=== PATIENT | male | born 1965 | race Caucasian/White ===

== ENCOUNTER → 2022-01-11 10:39 | Outpatient (BNVA) | payer MEDICARE, SELFPAY | PROVIDERS: PCP Family Medicine; Visit Provider Family Medicine | DX: M54.50 Low back pain, unspecified (principal); G89.29 Other chronic pain; E11.40 Type 2 diabetes mellitus with diabetic neuropathy, unspecified; I10 Essential (primary) hypertension; E78.00 Pure hypercholesterolemia, unspecified; F41.9 Anxiety disorder, unspecified; E11.9 Type 2 diabetes mellitus without complications; F11.90 Opioid use, unspecified, uncomplicated | CPT/HCPCS: 80053; 80061; 83036; 85025 ==

== ENCOUNTER 2022-03-16 06:00 | Outpatient (RCR) | payer MEDICARE, SELFPAY | END 2022-04-12 23:59 | disposition home or self-care (01) | LOC: SPT 06:00 | PROVIDERS: PCP Family Medicine; Visit Provider Family Medicine | DX: M54.50 Low back pain, unspecified (principal); G89.29 Other chronic pain | CPT/HCPCS: 97110; 97162 ==

== ENCOUNTER 2022-04-13 06:00 | Outpatient (RCR) | payer MEDICARE, SELFPAY | END 2022-05-10 23:59 | disposition home or self-care (01) | LOC: SPT 06:00 | PROVIDERS: PCP Family Medicine; Visit Provider Family Medicine | DX: M54.50 Low back pain, unspecified (principal); G89.29 Other chronic pain | CPT/HCPCS: 97110 ==

== ENCOUNTER → 2022-04-22 10:22 | Outpatient (BNVA) | payer MEDICARE, SELFPAY | PROVIDERS: PCP Family Medicine; Visit Provider Family Medicine | DX: B35.1 Tinea unguium (principal); M54.50 Low back pain, unspecified; G89.29 Other chronic pain; E11.9 Type 2 diabetes mellitus without complications; I10 Essential (primary) hypertension; F41.9 Anxiety disorder, unspecified; F11.90 Opioid use, unspecified, uncomplicated | CPT/HCPCS: 80053; 83036 ==

== ENCOUNTER → 2022-05-02 11:13 | Outpatient (BNVA) | payer MEDICARE, SELFPAY | PROVIDERS: PCP Family Medicine; Referring Provider Family Medicine; Visit Provider Podiatrist Foot & Ankle Surgery | DX: M20.32 Hallux varus (acquired), left foot (principal); M20.31 Hallux varus (acquired), right foot; M20.41 Other hammer toe(s) (acquired), right foot; M20.42 Other hammer toe(s) (acquired), left foot; M21.6X9 Other acquired deformities of unspecified foot; E11.42 Type 2 diabetes mellitus with diabetic polyneuropathy; Z79.4 Long term (current) use of insulin | CPT/HCPCS: 11056; 11721; 99204 ==

== ENCOUNTER 2022-05-06 13:33 | Outpatient (CLI) | payer MEDICARE, SELFPAY ==
--- NOTE | 2022-05-06 13:54 | XR_ITS ---
WS: [id number] Exam: XR lumbar spine f/e only [id number] Date/Time of Exam: 05/06/2022 1:54 PM Reason For Exam: POST LAMINECTOMY SYNDROME There is posterior fusion of the spine at L4-5 with pedicle screws and posterior rods. A disc spacer is in place. The fusion is ossified and in satisfactory alignment. No flexion or extension instabilit y. Degenerative narrowing of the L3-4 disc. A neurostimulator is noted in the posterior soft tissues with the leads extending cephalad. XR/XR lumbar spine f/e only [id number] IMPRESSION: 1. Stable-appearing posterior L4-5 fusion. 2. No flexion or extension instability. Degenerative changes as above.
== END 2022-05-06 13:34 | disposition home or self-care (01) ==
PROVIDERS: PCP Family Medicine; Visit Provider Nurse Practitioner
DX: M96.1 Postlaminectomy syndrome, not elsewhere classified (principal)
CPT/HCPCS: 72120

== ENCOUNTER 2022-05-11 06:00 | Outpatient (RCR) | payer MEDICARE, SELFPAY | END 2022-06-01 12:34 | disposition home or self-care (01) | LOC: SPT 06:00 | PROVIDERS: PCP Family Medicine; Visit Provider Family Medicine | DX: M54.50 Low back pain, unspecified (principal); G89.29 Other chronic pain | CPT/HCPCS: 97110 ==

== ENCOUNTER → 2022-06-02 10:34 | Outpatient (BNVA) | payer OTHER, SELFPAY | PROVIDERS: PCP Family Medicine; Visit Provider Family Medicine | DX: R30.0 Dysuria (principal); Z12.5 Encounter for screening for malignant neoplasm of prostate; Z11.59 Encounter for screening for other viral diseases; H91.92 Unspecified hearing loss, left ear | CPT/HCPCS: 80074; 84153 ==

== ENCOUNTER 2023-03-08 08:06 | Outpatient (CLI) | payer MEDICARE, SELFPAY ==
--- NOTE | 2023-03-08 08:11 | CTR_ITS ---
PROCEDURE INFORMATION: Exam: CT Temporal Bones Without Contrast. Exam date and time: 03/08/2023 8:16 AM Age: 57 years old Clinical indication: Other: Tinnitus with hearing loss to left ear; Additional info: Mixed conductive sensorineural hearing loss TECHNIQUE: Imaging protocol: Computed tomography of the temporal bones without contrast. Radiation optimization: All CT scans at this facility use at least one of these dose optimization techniques: automated exposure control; mA and/or kV adjustment per patient size (includes targeted exams where dose is matched to clinical indication); or iterative reconstruction. REPORTING DATA: Count of CT and Cardiac NM exams in prior 12 months: This patient has received 0 known CTs and 0 known cardiac nuclear medicine studies in the 12 months prior to the current study. COMPARISON: No relevant prior studies available. RADIATION DOSE METRICS: Total DLP (mGy-cm): 290.95 FINDINGS: Right inner ear: Normal. Right ossicles and middle ear: Normal. The middle ear ossicles are intact. Right external auditory canal: Normal. Right facial nerve canal: Normal. Right jugular foramen: No jugular dehiscence. Right carotid canal: No aberrant carotid canal. Right mastoid air cells: Normal. No mastoid effusions. Left inner ear: Normal. Left ossicles and middle ear: Normal. The middle ear ossicles are intact. Left external auditory canal: Normal. Left facial nerve canal: Normal. Left jugular foramen: No jugular dehiscence. Left carotid canal: No aberrant carotid canal. Left mastoid air cells: Normal. No mastoid effusions. Soft tissues: Unremarkable. CT/CT temporal bone wo con* [id number] IMPRESSION: No acute findings.
== END 2023-03-08 08:07 | disposition home or self-care (01) ==
LOC: RAD 08:07
PROVIDERS: PCP Family Medicine; Visit Provider Otolaryngology
DX: H90.8 Mixed conductive and sensorineural hearing loss, unspecified (principal); H93.12 Tinnitus, left ear
CPT/HCPCS: 70480

== ENCOUNTER → 2023-05-08 11:21 | Outpatient (BNVA) | payer MEDICARE, SELFPAY | PROVIDERS: PCP Family Medicine; Visit Provider Family Medicine | DX: E11.9 Type 2 diabetes mellitus without complications (principal) | CPT/HCPCS: 80053; 83036 ==

== ENCOUNTER 2023-05-21 18:17 | Inpatient (IN) | payer MEDICARE, SELFPAY ==
[2023-05-21 18:29] VITALS: BP 171/95; PULSE 100; RESP 18; TEMP 37.2; O2SAT 95; BMI 36.5
--- NOTE | 2023-05-21 18:51 | XRR_ITS ---
PROCEDURE INFORMATION: Exam: XR Chest Exam date and time: 05/21/2023 6:58 PM Age: 57 years old Clinical indication: Chest pressure; Patient HX: Chest pain; SOB; HTN TECHNIQUE: Imaging protocol: Radiologic exam of the chest. Views: 1 view. COMPARISON: CT angio chest w abd pel w con 05/21/2023 6:23 PM FINDINGS: Tubes, catheters and devices: Spinal stimulator. Lungs: Bibasilar atelectasis versus infiltrate. Pleural spaces: Unremarkable. No pleural effusion. No pneumothorax. Heart/Mediastinum: Cardiomegaly. Bones/joints: Unremarkable. XR/XR chest 1V portable [id number] IMPRESSION: 1. Bibasilar atelectasis versus infiltrate. 2. Cardiomegaly. 3. Spinal stimulator.
--- NOTE | 2023-05-21 18:57 | CTR_ITS ---
PROCEDURE INFORMATION: Exam: CTA Chest With Contrast Exam date and time: 05/21/2023 6:23 PM Age: 57 years old Clinical indication: Abdominal pain; Shortness of breath; Chest pressure; Prior surgery; Surgery date: 6+ months; Surgery type: Esther fundoplication. Spinal stimulator. Lumbar fusion. Patient HX: C/O chest and epigastric pain with SOB and constipation. ; Additional info: Cp TECHNIQUE: Imaging protocol: Computed tomographic angiography of the chest with contrast. Exam focused on the arteries. 3D rendering (Not supervised by radiologist): MIP and/or 3D reconstructed images were created by the technologist. Radiation optimization: All CT scans at this facility use at least one of these dose optimization techniques: automated exposure control; mA and/or kV adjustment per patient size (includes targeted exams where dose is matched to clinical indication); or iterative reconstruction. Contrast material: OMNI 350; Contrast volume: 100 ml; Contrast route: INTRAVENOUS (IV); COMPARISON: No relevant prior studies available. RADIATION DOSE METRICS: Total DLP (mGy-cm): 1632.07 FINDINGS: Tubes, catheters and devices: Spinal stimulator. Pulmonary arteries: Normal. No pulmonary emboli. Aorta: Ascending thoracic aorta dilated to 3.6 cm. Lungs: Bilateral dependent atelectasis versus infiltrate. Pleural spaces: Unremarkable. No pneumothorax. No pleural effusion. Heart: Cardiomegaly. Coronary arteries: Coronary artery atherosclerotic calcifications. Lymph nodes: Unremarkable. No enlarged lymph nodes. Bones/joints: Unremarkable. No acute fracture. Soft tissues: Unremarkable. PROCEDURE INFORMATION: Exam: CT Abdomen And Pelvis With Contrast Exam date and time: 05/21/2023 6:23 PM Age: 57 years old Clinical indication: Abdominal pain; Shortness of breath; Chest pressure; Prior surgery; Surgery date: 6+ months; Surgery type: Esther fundoplication. Spinal stimulator. Lumbar fusion. Patient HX: C/O chest and epigastric pain with SOB and constipation. ; Additional info: Cp TECHNIQUE: Imaging protocol: Computed tomography of the abdomen and pelvis with contrast. Radiation optimization: All CT scans at this facility use at least one of these dose optimization techniques: automated exposure control; mA and/or kV adjustment per patient size (includes targeted exams where dose is matched to clinical indication); or iterative reconstruction. Contrast material: OMNI 350; Contrast volume: 100 ml; Contrast route: INTRAVENOUS (IV); COMPARISON: CR XR lumbar spine f/e only [id number] 05/06/2022 1:56 PM RADIATION DOSE METRICS: Total DLP (mGy-cm): 1632.07 FINDINGS: Tubes, catheters and devices: Spinal stimulator in the thoracic spine. Liver: Normal. No mass. Gallbladder and bile ducts: Cholelithiasis with possible gallbladder wall thickening, ultrasound could further characterize this. Pancreas: Normal. No ductal dilation. Spleen: Normal. No splenomegaly. Adrenal glands: Normal. No mass. Kidneys and ureters: Right kidney cyst, negative for follow up. Bilateral nonobstructing renal calyceal stones. Mild perinephric edema bilaterally likely reflecting renal sufficiency, please correlate for pyelonephritis. Right distal ureter 5.3 mm calculus suspected, best seen series 8, image 78, negative for hydronephrosis hydroureter. Stomach and bowel: Gastric surgical sutures. Appendix: No evidence of appendicitis. Intraperitoneal space: Unremarkable. No free air. No significant fluid collection. Vasculature: Unremarkable. No abdominal aortic aneurysm. Lymph nodes: Unremarkable. No enlarged lymph nodes. Urinary bladder: Unremarkable as visualized. Reproductive: Unremarkable as visualized. Bones/joints: Lumbar spine surgical hardware seen in place. Soft tissues: Unremarkable. CT/CT angio chest w abd pel w con IMPRESSION: 1. Negative for pulmonary embolus. 2. Ascending thoracic aorta dilated to 3.6 cm. 3. Cardiomegaly. 4. Coronary artery atherosclerotic calcifications. 5. Bilateral dependent atelectasis versus infiltrate. 6. Spinal stimulator. IMPRESSION: 1. Cholelithiasis with possible gallbladder wall thickening, ultrasound could further characterize this. 2. Right kidney cyst, negative for follow up. 3. Bilateral nonobstructing renal calyceal stones. 4. Mild perinephric edema bilaterally likely reflecting renal sufficiency, please correlate for pyelonephritis. 5. Right distal ureter 5.3 mm calculus suspected, best seen series 8, image 78, negative for hydronephrosis hydroureter. 6. Spinal stimulator in the thoracic spine. 7. Lumbar spine surgical hardware seen in place. 8. Gastric surgical sutures.
[2023-05-21 19:11] LABS: Basophils % 0.2 %; Eosinophils % 0.5 %; Hematocrit 45.2 % (37-53); Lymphocytes # 0.5 10^3/uL (0.8-4.8); Lymphocytes % 12.4 %; Mean Corpuscular HGB Conc 33.4 g/dL (30-55); Mean Corpuscular Hemoglobin 28.5 pg (27-33); Mean Corpuscular Volume 85.4 fl (82-101); Mean Platelet Volume 9.2 fL (7.4-10.4); Monocytes % 0.7 %; Neutrophils # 3.68 10^3/uL (1.8-7.7); Neutrophils % 86.2 %; Nucleated Red Blood Cells % 0 %; Platelet Count 182 10^3/cmm (157-399); Red Blood Count 5.29 10^6/uL (3.85-5.65); Red Cell Distribution Width 12.8 % (12.1-15.1); White Blood Count 4.27 10^3/uL (3.29-11.43)
--- NOTE | 2023-05-21 19:17 | W.ED.CHESTPA ---
HPI - Chest Pain General: Chief Complaint: Chest Pain Stated Complaint: cp Time Seen by Provider: 05/21/23 18:48 Source: patient Mode of arrival: ambulatory Limitations: no limitations History of Present Illness: 57-year-old male states that today has been having epigastric pain along with chest pain it has been real sharp in nature he states its radiated to his back he had some dyspnea with that as well. He has had issues with constipation and stomach issues in the past denies any cardiac issues. States pain is currently a 5 out of 10 denies any vomiting or diarrhea Associated symptoms: Deny abdominal pain, dyspnea, fever(s), nausea or vomiting Review of Systems Const: Denies: fever(s), chills, body aches or change in appetite ENMT: Denies: throat pain or dental pain Card: Reports: chest pain Resp: Denies: dyspnea GI: Denies: abdominal pain, nausea, vomiting or diarrhea : Denies: dysuria Musc: Denies: neck pain or back pain Skin/Breast: Denies: rash Neuro: Denies: headache(s) PFSH ED PFSH: Medical History Psychiatric care Borderline hypercholesterolemia Diabetic neuropathy Chronic low back pain Diabetes Hypertension Surgical History History of Esther fundoplication History of spinal surgery x2 spinal stimulators placed History of back surgery Family History Father CAD (coronary artery disease) Mother Cancer breast Grandmother Diabetes Denies family history of Clotting disorder Dementia Hyperlipidemia Psychiatric illness Chronic kidney disease (CKD) Anesthesia complication Bleeding disorder Lung disease Hypertension Stroke Social History Smoking and tobacco/nicotine status: never used tobacco/nicotine Alcohol intake: never Substance/Drug Use: never Caregiver/support person: No Lives independently: Yes Household members: spouse Marital status: Number of children: 0 Current occupational status: disabled Current gender identity: Male Physical Exam Const: COMMON NORMALS: patient oriented x3 HENMT: COMMON NORMALS: normocephalic and atraumatic HEAD & SCALP: normocephalic and atraumatic Eye: COMMON NORMALS: Equal, round and reactive pupils present and EOMs intact bilaterally PUPIL: Yes Equal, round and reactive pupils present Neck/C-Spine: COMMON NORMALS: full ROM and supple Chest: COMMONS NORMALS: normal inspection of the chest and normal palpation of entire chest wall Resp: COMMON NORMALS: normal respiratory effort, No retractions, No use of accessory muscles and clear to auscultation bilaterally AUSCULTATION: clear to auscultation bilaterally Cardio: COMMON NORMALS: regular rate, regular rhythm and No murmurs present (Cardio) RATE: regular rate RHYTHM: regular rhythm GI: COMMON NORMALS: Normal to inspection, nondistended, normoactive bowel sounds present, Soft to palpation and no masses PALPATION: Yes Soft to palpation and Yes Tenderness to palpation present (GI) Details: RUQ Extremity: COMMON NORMALS: normal to inspection and full ROM Neuro: COMMON NORMALS: patient oriented x3, moves all extremities and no focal motor deficits Psych: COMMON NORMALS: mental status grossly normal, Normal thought process present and cooperative THOUGHT PROCESS: Normal thought process present Skin: COMMON NORMALS: no rashes or lesions noted and no wounds GENERAL SKIN EXAM: no rashes or lesions noted Course Vital Signs: Vital signs: Vital Signs Temperature 99.0 F 05/21/23 18:29 Pulse Rate 113 H 05/21/23 21:54 Respiratory Rate 20 H 05/21/23 21:54 Blood Pressure 139/92 05/21/23 21:54 Pulse Oximetry 95 05/21/23 21:54 Oxygen Delivery Me thod Room Air 05/21/23 19:42 MDM - Chest Pain Medical Decision Making Patient presents here with abdomen and chest pain CT and ultrasound does show a cholecystitis he has a slight pneumonia as well he has no common bile duct thickening urine shows no UTI spoke to hospitalist along with surgeon will start on IV antibiotics and admit at this time. Medical Records I reviewed the patient's medical records. Lab Data I reviewed the patient's lab results. 05/21/23 18:54 05/21/23 18:54 Radiology Impressions Chest X-Ray 05/21/23 18:51 IMPRESSION: 1. Bibasilar atelectasis versus infiltrate. 2. Cardiomegaly. 3. Spinal stimulator. Chest/Abdomen/Pelvis CT 05/21/23 18:57 IMPRESSION: 1. Negative for pulmonary embolus. 2. Ascending thoracic aorta dilated to 3.6 cm. 3. Cardiomegaly. 4. Coronary artery atherosclerotic calcifications. 5. Bilateral dependent atelectasis versus infiltrate. 6. Spinal stimulator. IMPRESSION: 1. Cholelithiasis with possible gallbladder wall thickening, ultrasound could further characterize this. 2. Right kidney cyst, negative for follow up. 3. Bilateral nonobstructing renal calyceal stones. 4. Mild perinephric edema bilaterally likely reflecting renal sufficiency, please correlate for pyelonephritis. 5. Right distal ureter 5.3 mm calculus suspected, best seen series 8, image 78, negative for hydronephrosis hydroureter. 6. Spinal stimulator in the thoracic spine. 7. Lumbar spine surgical hardware seen in place. 8. Gastric surgical sutures. Gallbladder Ultrasound 05/21/23 20:03 IMPRESSION: 1. Cholelithiasis with gallbladder wall thickening to 6 mm concerning for cholecystitis. 2. Liver enlarged to 19 cm with hepatic steatosis suspected. Laboratory Results WBC 4.27 10^3/uL (3.29-11.43) 05/21/23 18:54 RBC 5.29 10^6/uL (3.85-5.65) 05/21/23 18:54 Hgb 15.10 g/dL (11.27-16.99) 05/21/23 18:54 Hct 45.2 % (37-53) 05/21/23 18:54 MCV 85.4 fl (82-101) 05/21/23 18:54 MCH 28.5 pg (27-33) 05/21/23 18:54 MCHC 33.4 g/dL (30-55) 05/21/23 18:54 RDW 12.8 % (12.1-15.1) 05/21/23 18:54 Plt Count 182 10^3/cmm (157-399) 05/21/23 18:54 MPV 9.2 fL (7.4-10.4) 05/21/23 18:54 Neut % (Auto) 86.2 % 05/21/23 18:54 Lymph % (Auto) 12.4 % 05/21/23 18:54 [place] % (Auto) 0.7 % 05/21/23 18:54 Eos % (Auto) 0.5 % 05/21/23 18:54 Baso % (Auto) 0.2 % 05/21/23 18:54 Neut # (Auto) 3.68 10^3/uL (1.8-7.7) 05/21/23 18:54 Lymph # (Auto) 0.5 10^3/uL (0.8-4.8) L 05/21/23 18:54 [place] # (Auto) 0.0 10^3/uL (0.2-0.9) L 05/21/23 18:54 Eos # (Auto) 0.0 10^3/uL (0.0-0.8) 05/21/23 18:54 Baso # (Auto) 0.0 10^3/uL (0.0-0.1) 05/21/23 18:54 Nucleated RBC % (auto) 0 % 05/21/23 18:54 Nucleated RBCs # 0.0 /100WBC 05/21/23 18:54 PT 13.50 SECONDS (12.1-14.9) 05/21/23 18:54 INR 1.00 (0.8-1.2) 05/21/23 18:54 Sodium 139 mmol/L (136-145) 05/21/23 18:54 Potassium 3.8 mmol/L (3.5-5.1) 05/21/23 18:54 Chloride 101 mmol/L (98-107) 05/21/23 18:54 Carbon Dioxide 26 mmol/L (22-29) 05/21/23 18:54 Anion Gap 15.8 (5-19) 05/21/23 18:54 BUN 14 mg/dL (6-20) 05/21/23 18:54 Creatinine 0.7 mg/dL (0.7-1.2) 05/21/23 18:54 GFR Calculation 117.1 mL/min (90-130) 05/21/23 18:54 Glucose 279 mg/dL (65-115) H 05/21/23 18:54 Calculated Osmolality 299 mOsm/kg (285-295) H 05/21/23 18:54 Lactic Acid 1.6 mmol/L (0.5-2.2) 05/21/23 20:25 Calcium 9.3 mg/dL (8.5-10.5) 05/21/23 18:54 Total Bilirubin 1.8 mg/dL (0.15-1.2) H 05/21/23 18:54 AST 406 U/L (0-40) H 05/21/23 18:54 ALT 182 U/L (0-41) H 05/21/23 18:54 Alkaline Phosphatase 339 U/L (40-130) H 05/21/23 18:54 Troponin T Baseline 7 ng/L (0-15) 05/21/23 18:54 Troponin T 120 Minute 11.57 ng/L (0-15) 05/21/23 20:35 Delta Troponin T 4.57 ABS# (0-10) 05/21/23 20:35 Total Protein 6.5 g/dL (6.6-8.7) L 05/21/23 18:54 Albumin 4.4 g/dL (3.5-5.2) 05/21/23 18:54 Globulin 2.1 g/dL (1.3-4.6) 05/21/23 18:54 Lipase 12 U/L (13-60) L 05/21/23 18:54 Urine Color Yellow (Yellow) 05/21/23 21:51 Urine Appearance Clear (CLEAR) 05/21/23 21:51 Urine pH 5 (5-7) 05/21/23 21:51 Ur Specific [place] 1.005 (1.005-1.030) 05/21/23 21:51 Urine Protein Neg (Negative) 05/21/23 21:51 Urine Glucose (UA) 2+ (Normal) H 05/21/23 21:51 Urine Ketones Negative (Negative) 05/21/23 21:51 Urine Blood Neg (Negative) 05/21/23 21:51 Urine Nitrate Negative (Negative) 05/21/23 21:51 Urine Bilirubin Neg (Negative) 05/21/23 21:51 Urine Urobilinogen Neg mg/dL (Negative) 05/21/23 21:51 Ur Leukocyte Esterase Negative (Negative) 05/21/23 21:51 Influenza Type A Ag negative (Negative) 05/21/23 21:17 Influenza Type B Ag negative (Negative) 05/21/23 21:17 SARS-CoV-2 Ag (Rapid) negative (Negative) 05/21/23 21:17 All radiology interpretation(s) finalized by discharge EKG Data EKG 1: I personally reviewed and interpreted this EKG as follows: EKG interpretation date: 05/21/23 EKG interpretation time: 18:22 Interpretation: nsr hr [address] elevation qrs 91 qtc 401 Discharge Plan Discharge Patient Disposition: Admitted As Inpatient Clinical Impression: Acute cholecystitis, Pneumonia Condition: Stable Prescriptions: No Action fluticasone propionate 50 mcg/actuation spray,suspension 1 spray intranasal DAILY Rx Instructions: administer into each nostril diclofenac sodium [Arthritis Pain (diclofenac)] 1 % gel 2 g topical QID Rx Instructions: apply to single elbow, wrist or hand; for hand includes palm/fingers/back of hand triamcinolone acetonide 55 mcg aerosol,spray 1 spray intranasal DAILY Rx Instructions: administer into each nostril (DME) Blood Glucose Test Strip See Rx Instructions .ROUTE .MEDSUPPLY Qty: 50 5RF Rx Instructions: As directed (DME) lancets [Fingerstix Lancets] Misc See Rx Instructions .ROUTE .MEDSUPPLY Qty: 100 2RF Rx Instructions: As directed (DME) Diabetic Shoes with 3 sets of inserts See Rx Instructions .Route .MEDSUPPLY Qty: 1 0RF Rx Instructions: As directed omeprazole 40 mg capsule,delayed release(DR/EC) 40 mg PO DAILY Qty: 90 1RF sennosides-docusate sodium 8.6-50 mg tablet 2 tab-cap PO BID 60 Days Qty: 240 2RF oxycodone-acetaminophen 7.5-325 mg tablet 1 tab PO TID PRN (Reason: pain) 30 Days Qty: 90 0RF terbinafine HCl 250 mg tablet 250 mg PO DAILY 84 Days Qty: 84 0RF All Day Allergy (cetirizine) 10 mg capsule 10 mg PO DAILY PRN (Reason: allergy symptoms) Qty: 90 1RF aripiprazole 5 mg tablet 5 mg PO DAILY Qty: 90 0RF benztropine 1 mg tablet 1 mg PO DAILY Qty: 90 0RF trazodone 150 mg tablet 150 mg PO .HS Qty: 90 0RF (DME) blood-glucose meter Misc See Rx Instructions .ROUTE .MEDSUPPLY Qty: 1 2RF Rx Instructions: use 4 times daily metformin 500 mg tablet See Rx Instructions PO TID Qty: 270 1RF Rx Instructions: 1000mg qAM and 500mg qPM orally three times daily; losartan 25 mg tablet 25 mg PO DAILY Qty: 90 1RF rosuvastatin 40 mg tablet 40 mg PO DAILY Qty: 90 1RF amlodipine 5 mg tablet See Rx Instructions .ROUTE .COMPLEX Qty: 180 0RF Dose Instruction: TAKE 1 TABLET BY MOUTH TWICE A DAY Rx Instructions: TAKE 1 TABLET BY MOUTH TWICE A DAY pregabalin 75 mg capsule 75 mg PO BID Qty: 60 0RF celecoxib 200 mg capsule 200 mg PO DAILY Qty: 90 0RF baclofen 20 mg tablet 20 mg PO TID Qty: 270 0RF Referrals: Ananth Hills MD [Primary Care Provider] - Coding Level of Care Code ED 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
[2023-05-21 19:22] LABS: Alanine Aminotransferase 182 U/L (0-41); Albumin Level 4.4 g/dL (3.5-5.2); Alkaline Phosphatase 339 U/L (40-130); Aspartate Amino Transferase 406 U/L (0-40); Blood Urea Nitrogen 14 mg/dL (6-20); Calcium 9.3 mg/dL (8.5-10.5); Carbon Dioxide 26 mmol/L (22-29); Chloride 101 mmol/L (98-107); Creatinine Clr Calc Pharmacy 142.6529; Globulin 2.1 g/dL (1.3-4.6); Glomerular Filtration Rate 117.1 mL/min (90-130); Glucose 279 mg/dL (65-115); Lipase 12 U/L (13-60); Osmolality Calculated 299 mOsm/kg (285-295); Sodium 139 mmol/L (136-145); Total Bilirubin 1.8 mg/dL (0.15-1.2); Total Protein 6.5 g/dL (6.6-8.7)
[2023-05-21] MEDS: iohexol 350 mg/mL 500 mL Btl (per mL) IV (19:25)
[2023-05-21 19:26] LABS: Anion Gap 15.8 (5-19); Potassium 3.8 mmol/L (3.5-5.1); Troponin(5th) Baseline 7 ng/L (0-15)
[2023-05-21 19:39] VITALS: RESP 20; O2SAT 93
[2023-05-21] MEDS: morphine 4 mg/mL SDV 1 mL IVP (19:39)
[2023-05-21] MEDS: ondansetron 2 mg/ML SDV 2 mL 4 MG IVP (19:40)
[2023-05-21 19:42] VITALS: BP 177/93; PULSE 113; RESP 20; O2SAT 91
--- NOTE | 2023-05-21 20:03 | USR_ITS ---
PROCEDURE INFORMATION: Exam: US Abdomen, Limited; Right Upper Quadrant Exam date and time: 05/21/2023 8:51 PM Age: 57 years old Clinical indication: Abdominal pain; Epigastric; Additional info: Abd pain TECHNIQUE: Imaging protocol: Real time ultrasound of the abdomen with image documentation. Limited exam focused on the right upper quadrant. COMPARISON: CT angio chest w abd pel w con 05/21/2023 6:23 PM FINDINGS: Liver: Liver enlarged to 19 cm with hepatic steatosis suspected. Gallbladder: Cholelithiasis with gallbladder wall thickening to 6 mm concerning for cholecystitis. Biliary ducts: Normal. No stones. No dilation. Pancreas: Visualized pancreas is unremarkable. Right kidney: Normal. No mass. No hydronephrosis. US/US gall bladder [id number] IMPRESSION: 1. Cholelithiasis with gallbladder wall thickening to 6 mm concerning for cholecystitis. 2. Liver enlarged to 19 cm with hepatic steatosis suspected.
--- NOTE | 2023-05-21 20:20 | ECG_ITS ---
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 Measurements Intervals [place] Rate: 117 P: 0 MD: 349 QRS: 6 QRSD: 93 T: -69 QT: 322 QTc: 450 Interpretive Statements The tracing is uninterpretable other than there is sinus rhythm Electronically Signed On 05-22-2023 14:23:09 CDT by Dylan Candelario M.D. [email or web address]
[2023-05-21] MEDS: piperacillin-tazobactam 3.375 GM in sodium chloride 0.9% (plus) 50 ML IV (20:39)
[2023-05-21] MEDS: sodium chloride 0.9% 1,000 ML 999 ML IV (20:40)
[2023-05-21 21:00] LABS: Troponin 5 2HR 11.57 ng/L (0-15); Troponin 5 2HR Delta 4.57 ABS# (0-10)
[2023-05-21 21:01] LABS: Lactic Sepsis W/Reflex 1.6 mmol/L (0.5-2.2)
[2023-05-21] MEDS: acetaminophen 500 mg Tablet 1000 MG PO (21:10)
[2023-05-21] MEDS: vancomycin 1,000 MG in sodium chloride 0.9% 250 ML 250 MG IV (21:15)
[2023-05-21 21:48] LABS: Influenza A by IFA negative (Negative); Influenza B by IFA negative (Negative); SARS Covid-2 Antigen negative (Negative)
[2023-05-21 21:54] VITALS: BP 139/92; PULSE 113; RESP 20; O2SAT 95
[2023-05-21 21:59] LABS: Add Urine Microscopic? NO; Charge for UA Resulting for Rev
[2023-05-21 22:01] LABS: Bilirubin Urine Neg (Negative); Blood Urine Neg (Negative); Glucose Urine UA 2+ (Normal); Ketones Urine Negative (Negative); Nitrate Urine Negative (Negative); Protein Urine Neg (Negative); Specific Gravity, Urine 1.005 (1.005-1.030); Urine Appearance Clear (CLEAR); Urine Color Yellow (Yellow); Urobilinogen Urine Neg (Negative); pH Urine 5 (5-7)
[2023-05-21 22:02] LABS: Leukocyte Esterase Urine Negative (Negative)
[2023-05-21 22:49] VITALS: BMI 37.2
--- NOTE | 2023-05-21 23:22 | PM.HP ---
Providers/Chief Complaint Admitting Physician: Kelley Lyon MD Primary Care Provider: Ananth Hills MD Chief Complaint: cp History of Present Illness [place] is a 57 year old male With a past medical history of hypertension, chronic lower back pain related to form injury several years ago, diabetes mellitus presenting to the hospital today with chief complaints of epigastric pain radiating onto the right side of his chest. States that he is having difficulty with breathing as pain makes him catch his breath. Denies any nausea vomiting or diarrhea. Denies any fever. Denies any cough or expectoration. CT of the chest performed at the ER was negative for PE. Noted to have a dilated ascending thoracic aortic aneurysm at 3.6 cm without any emergent vascular concerns. Bilateral dependent atelectasis versus infiltrate. Cholelithiasis with gallbladder wall thickening followed up with an ultrasound concerning for acute cholecystitis. Review of Systems General: Reports: 10 or more systems reviewed and unremarkable except in HPI and below Const: Denies: fever(s), chills or body aches Eyes: Denies: change in vision, blurry vision or photophobia ENMT: Reports: hoarseness; Denies: throat pain, enlarged tonsils, odynophagia or nasal congestion Card: Denies: chest pain, palpitations, irregular heart rhythm, edema, swelling of feet/ankles, lightheadedness, pre-syncope, dyspnea on exertion or orthopnea Resp: Denies: dyspnea, productive cough, non-productive cough, wheezing, stridor, pain on inspiration, change in phlegm color, hemoptysis or chest congestion GI: Denies: abdominal pain, nausea, vomiting, hematemesis, coffee ground emesis, dysphagia, heartburn, diarrhea, constipation, GI cramping, change in stool character, hematochezia or melena : Denies: flank pain, dysuria, urinary frequency, urinary urgency, urinary hesitancy or hematuria Musc: Denies: neck pain, back pain, extremity pain, joint swelling, joint warmth or deformity Neuro: Denies: headache(s), numbness in extremities, weakness in extremities, sensory changes, difficulty walking, frequent falls, dizziness, vertigo, behavioral changes, Slurred speech present or seizure-like activity Psych: Denies: anxiety, depression, suicidal ideation or homicidal ideation Endo: Denies: polyuria, polydipsia, tired all the time, cold intolerance or hot flashes Leroy/Lymph: Denies: easy bruising or easy bleeding Medications/Allergies Home Medications Medication Instructions Recorded Confirmed Last Taken Type blood sugar diagnostic (Blood #50 ea 01/11/22 05/21/23 05/21/23 08:00 Rx Glucose Test strips) diclofenac sodium 1 % topical gel 2 g topical QID PRN Pain 01/11/22 05/21/23 05/21/23 08:00 History (Arthritis Pain (diclofenac)) fluticasone propionate 50 1 spray intranasal DAILY 01/11/22 05/21/23 05/21/23 08:00 History mcg/actuation nasal spray,suspension lancets (Fingerstix Lancets) #100 ea 01/11/22 05/21/23 05/21/23 08:00 Rx blood-glucose meter #1 ea 01/14/22 05/21/23 05/21/23 08:00 Rx oxycodone-acetaminophen 7.5 mg-325 1 tab PO TID PRN pain 30 days #90 04/22/22 05/21/23 05/21/23 08:00 Rx mg tablet tabs terbinafine HCl 250 mg tablet 250 mg PO DAILY 12 weeks #84 tabs 04/22/22 05/21/23 05/21/23 08:00 Rx Diabetic Shoes with 3 sets of #1 ea 05/02/22 05/21/23 05/21/23 08:00 Rx inserts cetirizine 10 mg capsule (All Day 10 mg PO DAILY PRN allergy 07/22/22 05/21/23 05/21/23 08:00 Rx Allergy (cetirizine)) symptoms #90 caps losartan 25 mg tablet 25 mg PO DAILY #90 tabs 11/15/22 05/21/23 05/21/23 08:00 Rx omeprazole 40 mg capsule,delayed 40 mg PO DAILY #90 caps 12/29/22 05/21/23 05/21/23 08:00 Rx release pregabalin 75 mg capsule 75 mg PO BID #60 caps 04/18/23 05/21/23 05/21/23 08:00 Rx aripiprazole 5 mg tablet 5 mg PO DAILY #90 tabs 05/10/23 05/21/23 05/21/23 08:00 Rx benztropine 1 mg tablet 1 mg PO DAILY #90 tabs 05/10/23 05/21/23 05/21/23 08:00 Rx trazodone 150 mg tablet 150 mg PO .HS #90 tabs 05/10/23 05/21/23 05/20/23 21:00 Rx baclofen 20 mg tablet 20 mg PO TID #270 tabs 05/17/23 05/21/23 05/21/23 08:00 Rx celecoxib 200 mg capsule 200 mg PO DAILY #90 caps 05/17/23 05/21/23 05/21/23 08:00 Rx amlodipine 5 mg tablet 5 mg PO BID 05/21/23 05/21/23 05/21/23 08:00 History metformin 500 mg tablet 1,000 mg PO DAILY 05/21/23 05/21/23 05/21/23 08:00 History metformin 500 mg tablet See Rx Instructions .Route .COMPLEX 05/21/23 05/21/23 05/21/23 08:00 History rosuvastatin 40 mg tablet 40 mg PO BEDTIME 05/21/23 05/21/23 05/20/23 21:00 History sennosides 8.6 mg-docusate sodium 2 tab-cap PO BID PRN Constipation 05/21/23 05/21/23 05/21/23 08:00 History 50 mg tablet Allergies Allergy/AdvReac Type Severity Reaction Status Date / Time No Known Allergies Allergy Verified 05/21/23 18:29 PFSH Acute PFSH: Medical History Psychiatric care Borderline hypercholesterolemia Diabetic neuropathy Chronic low back pain Diabetes Hypertension Surgical History History of Esther fundoplication History of spinal surgery x2 spinal stimulators placed History of back surgery Family History Father CAD (coronary artery disease) Mother Cancer breast Grandmother Diabetes Denies family history of Clotting disorder Dementia Hyperlipidemia Psychiatric illness Chronic kidney disease (CKD) Anesthesia complication Bleeding disorder Lung disease Hypertension Stroke Social History Smoking and tobacco/nicotine status: never used tobacco/nicotine Alcohol intake: never Substance/Drug Use: never Caregiver/support person: No Lives independently: Yes Household members: spouse Marital status: Number of children: 0 Current occupational status: disabled Current gender identity: Male Vitals/I&O/Wt Last Vital Signs Temp 99.0 F 05/21/23 18:29 Pulse 113 H 05/21/23 21:54 Resp 20 H 05/21/23 21:54 BP 139/92 05/21/23 21:54 Pulse Ox 95 05/21/23 21:54 O2 Del Method Nasal Cannula 05/21/23 22:49 05/21/23 05/21/23 05/22/23 14:59 22:59 06:59 Intake Total 1300 / 1300 Balance 1300 / 1300 Weight last 48 hrs Weight 111.158 kg Weight 108.862 kg Physical Exam Narrative: General: No acute distress, AO x3 HEENT: PERRLA, pupils bilaterally equal and reactive, pallors not present Chest: Normal vesicular breath sounds, no added sounds, equal good air entry bilaterally CVS: S1-S2 regular, no murmurs, no tachycardia, no gallops, no rubs Abdomen: Discomfort to palpation over epigastric region. Neuro: No focal deficits, no facial deformity, AO x3, power 5/5 in all limbs Data 05/22/23 00:50 05/22/23 00:50 Other Labs: Spec : [id number] Ivet: 05/22/23-49 Status: COMP Req : [id number] Recd: 05/22/23-[address]: Kelley Lyon MD Ordered: CMP Test Low Normal High Flag Reference Site Sodium 141 136-145 mmol/L Potassium 3.3 L 3.5-5.1 mmol/L Chloride 104 98-107 mmol/L Carbon Dioxide 25 22-29 mmol/L Anion Gap 15.3 5-19 BUN 13 6-20 mg/dL Creatinine 0.8 0.7-1.2 mg/dL GFR 100.4 90-130 mL/min The MDRD formula for estimation of GFR was developed in a population of adults (>19 years) with slowly declining or stable reduced kidney function. The MDRD formula should not be used to predict GFR in unstable patients or in children. It has not seen validated in patients >70 years. A GFR estimate between 15-59 for >=3 months is classified as chronic kidney disease (stage 3 or 4). Glu 172 H 65-115 mg/dL Osmo Calc 296 H 285-295 mOsm/kg CA 8.3 L 8.5-10.5 mg/dL Total Bilirubin 3.0 H 0.15-1.2 mg/dL AST/SGOT 406 H 0-40 U/L ALT/SGPT 320 H 0-41 U/L Total Protein 5.2 L 6.6-8.7 g/dL Alb 3.7 3.5-5.2 g/dL Glob 1.5 1.3-4.6 g/dL Alk Phos 284 H 40-130 U/L Micro: Microbiology 05/21/23 20:30 Blood Culture - Preliminary Blood SPECIMEN COLLECTED 05/21/23 20:25 Blood Culture - Preliminary Blood SPECIMEN COLLECTED Other data: US/US gall bladder [id number] IMPRESSION: 1. Cholelithiasis with gallbladder wall thickening to 6 mm concerning for cholecystitis. 2. Liver enlarged to 19 cm with hepatic steatosis suspected. CT/CT angio chest w abd pel w con IMPRESSION: 1. Negative for pulmonary embolus. 2. Ascending thoracic aorta dilated to 3.6 cm. 3. Cardiomegaly. 4. Coronary artery atherosclerotic calcifications. 5. Bilateral dependent atelectasis versus infiltrate. 6. Spinal stimulator. IMPRESSION: 1. Cholelithiasis with possible gallbladder wall thickening, ultrasound could further characterize this. 2. Right kidney cyst, negative for follow up. 3. Bilateral nonobstructing renal calyceal stones. 4. Mild perinephric edema bilaterally likely reflecting renal sufficiency, please correlate for pyelonephritis. 5. Right distal ureter 5.3 mm calculus suspected, best seen series 8, image 78, negative for hydronephrosis hydroureter. 6. Spinal stimulator in the thoracic spine. 7. Lumbar spine surgical hardware seen in place. 8. Gastric surgical sutures. XR/XR chest 1V portable [id number] IMPRESSION: 1. Bibasilar atelectasis versus infiltrate. 2. Cardiomegaly. 3. Spinal stimulator. A&P Assessment and plan (1) Acute cholecystitis: Acute cholecystitis Admit to [facility] for possible surgery General surgery consult Empiric antibiotic coverage with piperacillin/tazobactam Blood culture taken and pending CT abdomen and liver ultrasound findings as above IVF normal saline at 75 cc an hour As needed Dilaudid for pain control (2) Transaminitis: Likely related to acute cholecystitis (3) Nephrolithiasis: Incidentally noted 5.3 mm right distal ureter calculus. No associated hydronephrosis or hydroureter. Less likely to be the cause of his symptoms currently Plan Chronic pain with spinal stimulator in place. As needed Dilaudid for now for pain management. Resume home doses of benztropine baclofen and oral oxycodone once able to resume p.o. intake Atelectasis noted on CT chest. No consolidation or clinical signs or symptoms of pneumonia per my assessment. Spirometry postoperatively to be encouraged. DVT prophylaxis: Lovenox 40 mg subcutaneously PUD prophylaxis Protonix 40 mg IV daily Attestations Medical Necessity Statement*: Greater than 2 midnight admission is anticipated for acute cholecystitis, anticipate surgical intervention. Coding Level of Care Code Acute Code for Chg Fwd Moderate MDM includes number and complexity of problems actively addressed during encounter, amount and/or complexity of data reviewed/ordered and described risk of complication, morbidity or mortality of management as documented Diagnoses Acute cholecystitis K81.0 Transaminitis R74.01 Nephrolithiasis N20.0
[2023-05-21 23:47] VITALS: BP 114/72; PULSE 109; RESP 16; TEMP 36.9; O2SAT 98
[2023-05-22] VITALS (27 sets, daily range): BP systolic 100–155; BP diastolic 56–88; PULSE 94–119; RESP 16–30; TEMP 36.3–39; O2SAT 90–100
--- NOTE | 2023-05-22 | XR_ITS ---
WS: [id number] INTRAOPERATIVE TECHNIQUE: 6 Spot fluoroscopic images for intraoperative purposes. FLUOROSCOPY TIME:? Seconds CLINICAL INFORMATION: [facility] COMPARISON: None. FINDINGS: Intraoperative cholangiogram. Normal filling of the common bile duct and intrahepatic ducts. Duodenum is not visualized. No filling defects. IMPRESSION: Images obtained for intraoperative purposes.
[2023-05-22] MEDS: enoxaparin 40 mg/0.4 mL Syringe SUBCUT (00:09)
[2023-05-22] MEDS: sodium chloride 0.9% 1,000 ML 75 ML IV (00:09)
[2023-05-22] MEDS: trazodone 150 mg Tablet PO ×2 (00:09→21:18)
[2023-05-22] MEDS: pantoprazole 40 mg SDV IVP (00:10)
[2023-05-22] MEDS: HYDROmorphone 1 mg/mL INJ 1 mL IVP ×4 (00:10→20:24)
[2023-05-22 03:15] LABS: Basophils % 0.4 %; Eosinophils # 0.1 10^3/uL (0.0-0.8); Eosinophils % 0.9 %; Hematocrit 40.4 % (37-53); Lymphocytes # 0.3 10^3/uL (0.8-4.8); Lymphocytes % 2.9 %; Mean Corpuscular HGB Conc 33.7 g/dL (30-55); Mean Corpuscular Hemoglobin 29.1 pg (27-33); Mean Corpuscular Volume 86.3 fl (82-101); Monocytes # 0.4 10^3/uL (0.2-0.9); Monocytes % 3.8 %; Neutrophils # 8.55 10^3/uL (1.8-7.7); Neutrophils % 91.6 %; Nucleated Red Blood Cells % 0 %; Platelet Count 195 10^3/cmm (157-399); Red Blood Count 4.68 10^6/uL (3.85-5.65); Red Cell Distribution Width 13.2 % (12.1-15.1); White Blood Count 9.33 10^3/uL (3.29-11.43)
[2023-05-22 03:57] LABS: Alanine Aminotransferase 320 U/L (0-41); Albumin Level 3.7 g/dL (3.5-5.2); Alkaline Phosphatase 284 U/L (40-130); Anion Gap 15.3 (5-19); Aspartate Amino Transferase 406 U/L (0-40); Blood Urea Nitrogen 13 mg/dL (6-20); Calcium 8.3 mg/dL (8.5-10.5); Carbon Dioxide 25 mmol/L (22-29); Chloride 104 mmol/L (98-107); Creatinine Clr Calc Pharmacy 126.1766; Globulin 1.5 g/dL (1.3-4.6); Glomerular Filtration Rate 100.4 mL/min (90-130); Glucose 172 mg/dL (65-115); Osmolality Calculated 296 mOsm/kg (285-295); Potassium 3.3 mmol/L (3.5-5.1); Sodium 141 mmol/L (136-145); Total Protein 5.2 g/dL (6.6-8.7)
[2023-05-22 06:25] LABS: Glucose Point of Care 209 mg/dL (70-110)
--- NOTE | 2023-05-22 09:06 | P.CONIM_ITS ---
Providers/Reason For Consult 2 Consulting Physician/Specialty*: Dr. Sriram White, DO/General surgery Reason for Consult*: Cholecystitis Attending Physician: Evelyn Nielson MD Primary Care Provider: Ananth Hills MD History of Present Illness History of Present Illness [place] is a 57 year old male, with past medical history of Esther fundoplication done laparoscopically, who presents to the hospital with 1 day history of epigastric and substernal chest pain radiating to his back and shoulders. The pain is crushing and constant. Palpation and eating makes pain worse. Nothing makes pain better. He reports nausea but he is unable to vomit since his fundoplication. He reports diarrhea but he denies any hematochezia and/or melena. Gallbladder ultrasound shows cholelithiasis with gallbladder wall thickening and a normal common bile duct. Bilirubin was 1.8 on arrival but since has risen to 3. Review of Systems 2 General: Reports: 10 or more systems reviewed and unremarkable except in HPI and below Medications/Allergies Home Medications Medication Instructions Recorded Confirmed Last Taken Type blood sugar diagnostic (Blood #50 ea 01/11/22 05/21/23 05/21/23 08:00 Rx Glucose Test strips) diclofenac sodium 1 % topical gel 2 g topical QID PRN Pain 01/11/22 05/21/23 05/21/23 08:00 History (Arthritis Pain (diclofenac)) fluticasone propionate 50 1 spray intranasal DAILY 01/11/22 05/21/23 05/21/23 08:00 History mcg/actuation nasal spray,suspension lancets (Fingerstix Lancets) #100 ea 01/11/22 05/21/23 05/21/23 08:00 Rx blood-glucose meter #1 ea 01/14/22 05/21/23 05/21/23 08:00 Rx oxycodone-acetaminophen 7.5 mg-325 1 tab PO TID PRN pain 30 days #90 04/22/22 05/21/23 05/21/23 08:00 Rx mg tablet tabs terbinafine HCl 250 mg tablet 250 mg PO DAILY 12 weeks #84 tabs 04/22/22 05/21/23 05/21/23 08:00 Rx Diabetic Shoes with 3 sets of #1 ea 05/02/22 05/21/23 05/21/23 08:00 Rx inserts cetirizine 10 mg capsule (All Day 10 mg PO DAILY PRN allergy 07/22/22 05/21/23 05/21/23 08:00 Rx Allergy (cetirizine)) symptoms #90 caps losartan 25 mg tablet 25 mg PO DAILY #90 tabs 11/15/22 05/21/23 05/21/23 08:00 Rx omeprazole 40 mg capsule,delayed 40 mg PO DAILY #90 caps 12/29/22 05/21/23 05/21/23 08:00 Rx release aripiprazole 5 mg tablet 5 mg PO DAILY #90 tabs 05/10/23 05/21/23 05/21/23 08:00 Rx benztropine 1 mg tablet 1 mg PO DAILY #90 tabs 05/10/23 05/21/23 05/21/23 08:00 Rx trazodone 150 mg tablet 150 mg PO .HS #90 tabs 05/10/23 05/21/23 05/20/23 21:00 Rx baclofen 20 mg tablet 20 mg PO TID #270 tabs 05/17/23 05/21/23 05/21/23 08:00 Rx celecoxib 200 mg capsule 200 mg PO DAILY #90 caps 05/17/23 05/21/23 05/21/23 08:00 Rx amlodipine 5 mg tablet 5 mg PO BID 05/21/23 05/21/23 05/21/23 08:00 History metformin 500 mg tablet 1,000 mg PO DAILY 05/21/23 05/21/23 05/21/23 08:00 History metformin 500 mg tablet See Rx Instructions .Route .COMPLEX 05/21/23 05/21/23 05/21/23 08:00 History rosuvastatin 40 mg tablet 40 mg PO BEDTIME 05/21/23 05/21/23 05/20/23 21:00 History sennosides 8.6 mg-docusate sodium 2 tab-cap PO BID PRN Constipation 05/21/23 05/21/23 05/21/23 08:00 History 50 mg tablet pregabalin 75 mg capsule 75 mg PO BID #60 caps 05/22/23 Unknown Rx Allergies Allergy/AdvReac Type Severity Reaction Status Date / Time No Known Allergies Allergy Verified 05/21/23 18:29 Current Medications Generic Name Dose Route Start Last Admin Trade Name Freq PRN Reason Stop Dose Admin Enoxaparin Sodium 40 mg 05/21/23 23:15 05/22/23 00:09 Enoxaparin 40 Mg/0.4 Ml Syringe SUBCUT 40 mg Q24H DANNIE Administration Hydromorphone HCl 1 mg 05/21/23 23:15 05/22/23 00:10 Hydromorphone 1 Mg/Ml Inj 1 Ml IVP 1 mg Q4H PRN Administration PAIN Sodium Chloride 1,000 mls @ 75 mls/hr 05/21/23 23:15 05/22/23 00:09 Sodium Chloride 0.9% IV 75 mls/hr .[id number] DANNIE Administration Pantoprazole Sodium 40 mg 05/21/23 23:15 05/22/23 00:10 Pantoprazole 40 Mg Sdv IVP 40 mg Q24H DANNIE Administration Trazodone HCl 150 mg 05/21/23 23:30 05/22/23 00:09 Trazodone 150 Mg Tablet PO 150 mg BEDTIME DANNIE Administration PFSH Acute 2 PFSH: Medical History Psychiatric care Borderline hypercholesterolemia Diabetic neuropathy Chronic low back pain Diabetes Hypertension Surgical History History of Esther fundoplication History of spinal surgery x2 spinal stimulators placed History of back surgery Family History Father CAD (coronary artery disease) Mother Cancer breast Grandmother Diabetes Denies family history of Clotting disorder Dementia Hyperlipidemia Psychiatric illness Chronic kidney disease (CKD) Anesthesia complication Bleeding disorder Lung disease Hypertension Stroke Social History Smoking and tobacco/nicotine status: never used tobacco/nicotine Alcohol intake: never Substance/Drug Use: never Caregiver/support person: No Lives independently: Yes Household members: spouse Marital status: Number of children: 0 Current occupational status: disabled Current gender identity: Male Vitals/I&O/Wt Last Vital Signs Temp 97.3 F L 05/22/23 07:36 Pulse 94 05/22/23 07:36 Resp 20 H 05/22/23 07:36 BP 100/67 05/22/23 07:36 Pulse Ox 96 05/22/23 07:36 O2 Del Method Nasal Cannula 05/22/23 07:36 05/21/23 05/22/23 05/22/23 22:59 06:59 14:59 Intake Total 1300 / 1300 Balance 1300 / 1300 Weight last 48 hrs Weight 247 lb 4.8 oz Weight 245 lb 1 oz Weight 240 lb Physical Exam 2 Narrative: General : Patient is well developed , no acute distress, oriented x3 Head : Normal cephalic, a-traumatic. Ears : Pinnae and external canal are normal. Hearing is normal. Eyes : PERRLA, slight scleral icterus. No conjunctival discharge. Nose : Mucous membranes are without erythema. Throat : buccal mucosa is normal, gums are without significant recession or hypertrophy. Lungs : Equal chest rise bilaterally, no use of accessory muscles, trachea is midline. Cor : Rate and rhythm are normal. Abdomen : Soft, ND, tender to palpation right upper quadrant, negative Thurman's, no g/r/m Extremities : No edema, no cyanosis or clubbing, dorsalis pedis pulses are present bilaterally, non-tender to palpation of calves. Upper extremities are normal bilaterally. Back : non-tender to palpation, no CVA tenderness. Neuro : CN II - XII intact, Upper and lower extremities have equal and full strength Data 05/22/23 00:50 05/22/23 00:50 Micro: Microbiology 05/21/23 20:30 Blood Culture - Preliminary Blood SPECIMEN COLLECTED 05/21/23 20:25 Blood Culture - Preliminary Blood SPECIMEN COLLECTED A&P Assessment and plan (1) Acute calculous cholecystitis: (2) Hyperbilirubinemia: (3) Transaminitis: Plan Since his bilirubin has risen, he may have choledocholithiasis. Laparoscopic cholecystectomy with intraoperative cholangiogram The risks and benefits of the procedure, including but not limited to, bleeding, infection, scar, numbness, pain, damage to surrounding structures, damage to common bile duct requiring additional surgery, conversion to an open procedure, were explained to the patient. He is understanding of the risks and wishes to proceed. It looks like he will go around 3 PM today If he has choledocholithiasis, he will need transfer for ERCP Coding Level of Care Code 05566 Diagnoses Acute calculous cholecystitis K80.00 Hyperbilirubinemia E80.6 Transaminitis R74.01
--- NOTE | 2023-05-22 09:36 | P.PN_ITS ---
Subjective 2 Subjective: Seen this morning. No acute events overnight. Total bilirubin 3.0, liver enzymes elevated. Plan to go for cholecystectomy today at 3 PM. Discussed with patient regarding transfer to higher level of care if he has choledocholithiasis for ERCP. Patient agreeable. Patient will be getting a cholangiogram today. Vitals/I&O/Wt Last Vital Signs Temp 97.3 F L 05/22/23 07:36 Pulse 94 05/22/23 07:36 Resp 20 H 05/22/23 07:36 BP 100/67 05/22/23 07:36 Pulse Ox 96 05/22/23 07:36 O2 Del Method Nasal Cannula 05/22/23 07:36 05/21/23 05/22/23 05/22/23 22:59 06:59 14:59 Intake Total 1300 / 1300 Balance 1300 / 1300 Weight last 48 hrs Weight 112.173 kg Weight 111.158 kg Weight 108.862 kg Physical Exam 2 Narrative: Mildly tender at epigastric region Otherwise abdominal soft, nontender Bowel sounds are present all 4 quadrants No acute distress No guarding no rebound tenderness. Normal S1-S2 Clear to auscultation bilaterally On 2 L nasal cannula at this time. Data 05/22/23 00:50 05/22/23 00:50 Micro: Microbiology 05/21/23 20:30 Blood Culture - Preliminary Blood SPECIMEN COLLECTED 05/21/23 20:25 Blood Culture - Preliminary Blood SPECIMEN COLLECTED A&P Assessment and plan (1) Acute cholecystitis: Acute cholecystitis Admit to [facility] N[facility] for possible surgery General surgery consult Empiric antibiotic coverage with piperacillin/tazobactam Blood culture taken and pending CT abdomen and liver ultrasound findings as above IVF normal saline at 75 cc an hour As needed Dilaudid for pain control (2) Transaminitis: Likely related to acute cholecystitis (3) Nephrolithiasis: Incidentally noted 5.3 mm right distal ureter calculus. No associated hydronephrosis or hydroureter. Less likely to be the cause of his symptoms currently Plan Chronic pain with spinal stimulator in place. As needed Dilaudid for now for pain management. Resume home doses of benztropine baclofen and oral oxycodone once able to resume p.o. intake Atelectasis noted on CT chest. No consolidation or clinical signs or symptoms of pneumonia per my assessment. Spirometry postoperatively to be encouraged. #Suspicion of choledocholithiasis ? Total bilirubin 3.0 Elevated liver enzymes Patient to have intraoperative cholangiogram. If choledocholithiasis present he will need ERCP for which he will be transferred. Patient agreeable with the above. I will hold off on initiating transfer for now and wait for instruction from general surgery for further management. Continue to keep patient NPO. DVT prophylaxis: Lovenox 40 mg subcutaneously PUD prophylaxis Protonix 40 mg IV daily Attestations 2 Medical Necessity Statement*: Plan for cholecystectomy today and intraoperative cholangiogram. May need transfer to higher level care thereafter for ERCP if choledocholithiasis present. Diagnoses Acute cholecystitis K81.0 Transaminitis R74.01 Nephrolithiasis N20.0
[2023-05-22] MEDS: insulin lispro 100 unit/1 mL SUBCUT ×3 (09:40→21:18)
[2023-05-22] MEDS: lidocaine 1% 5 ML in potassium chloride premix 100 ML 26.25 ML IV (09:40)
[2023-05-22] MEDS: pregabalin 75 mg Capsule PO ×2 (09:41→17:26)
[2023-05-22] MEDS: benztropine 1 mg Tablet PO (09:41)
[2023-05-22] MEDS: piperacillin-tazobactam 3.375 GM in sodium chloride 0.9% (plus) 50 ML IV (09:51)
--- NOTE | 2023-05-22 09:51 | PC.CHAP ---
Pastoral Care Encounter/Spiritual Assessment Type of Contact [] Declined photo specialist visit [] Patient/Family/Request visit [] Outpatient visit [] Follow-up visit [] Physician referral [] Code/Alert [x] Routine visit [] Staff referral [] Actively dying [] Patient sleeping [] Family support [] [] Out of room [] Palliative care [] [] Receiving care in room [] Pre-surgical visit [] Trauma [] Long length of stay [] ICU visit [] Other: Relational/Emotional Strength [] Patient feels connected with others/family/visitors/staff [] Distress [] Loneliness/isolation [] Abandonment Spirituality of Patient [x] Person of Karena [] Attends Muslim of their Karena [x] Believes in Prayer [] Reads Bible or Yarsani materials [] There are Spiritual issues to be addressed [employer] Interventions [x] Prayer [x] Active listening [] Non-anxious presence [] Spiritual/emotional support [] Crisis/trauma care [] Spiritual counseling [] Bereavement support [] Provided bereavement packet [] Provided Bible/devotional materials [] Provided toy/stuffed animal, coloring book to patient or family member [] Provided Communion [] Anointing/[place] [] Salvation [x] Completed spiritual assessment [] Other: Impact on Illness or Injury [] Angry [] Fearful [] Anxious [] Often cries [] Exhaustion [] Unable to work [] Unable to attend anabaptism [] Unable to walk/stand [] Unable to read [] Unable to drive [] Unable to eat/drink [] Unable to sleep [] Unable to be with family [] Patient intubated [] Other: Summary Time spent with patient 5 min
[2023-05-22 11:21] LABS: Glucose Point of Care 144 mg/dL (70-110)
[2023-05-22 11:22] LABS: Glucose Urine UA 1+ (Normal); Protein Urine Trace (Negative); Specific Gravity, Urine 1.015 (1.005-1.030); Urine Appearance Clear (CLEAR); Urine Color Dark Yellow (Yellow); pH Urine 5 (5-7)
[2023-05-22 11:23] LABS: Add Urine Microscopic? YES; Bilirubin Urine 2+ (Negative); Blood Urine Neg (Negative); Ketones Urine Negative (Negative); Leukocyte Esterase Urine Negative (Negative); Nitrate Urine Negative (Negative); Urobilinogen Urine 4 mg/dL (Negative)
[2023-05-22 11:24] LABS: Bacteria Urine TRACE /hpf; RBC Urine RARE /hpf (0-2); Squamous Epithelial Cell Urine 0-4 /hpf (0-5); WBC Urine 0-4 /hpf (0-5)
[2023-05-22 11:25] LABS: Add Urine Culture? No; Hyaline Casts Urine 0-4 /lpf; Mucus Urine TRACE /hpf
--- NOTE | 2023-05-22 11:41 | PC.NURSE ---
Pt has two bottles of blood cultures come back with gram negative rods. Pt is in pre-op. Notified Dr. Nielson, whom states she would like Dr. White notified prior to surgery. Calls ANGELA Morillo in PACU to notify Dr. White.
--- NOTE | 2023-05-22 11:49 | SUR.PREOP ---
1030 called to get report on pt and nurse stated i thought he was going at 3 pm, i think the patient is going earlier, i stated i would be there around 11am to pick pt up,1050 arrived on floor to pick pt up and no chart made for patient,chart made and arrived outside of pt's door and a nurse stated oh you are here to get patient, he's not even in a gown, another nurse comes to pt's room and says I'll get a gown, after pt gets into gown, nurse says ok he's ready, im still standing outside of his door and i asked if pt has to go to bathroom it may be a good time to go, noticed pt has shorts on underneath gown, stated that the shorts will have to be removed, pt walks to bathroom and pt walks to stretcher with his watch,ring and glasses, all must be removed prior to surgery.
--- NOTE | 2023-05-22 12:05 | P.ANESASSM_ITS ---
Pre-Anesthetic Assessment Height/Weight: Height 1.73 m Weight 112.173 kg Temp Pulse Resp BP Pulse Ox O2 Del Method 97.3 F L 94 16 100/67 96 Nasal Cannula 05/22/23 08:00 05/22/23 08:00 05/22/23 10:02 05/22/23 08:00 05/22/23 07:36 05/22/23 07:36 Operation Date: 05/22/23 13:15 Proposed Procedures p Laparoscopic Cholecystectomy w/ Cholangiograms(Not Applicable) - Sriram White DO Familial anesthetic complications: None Was Beta Courtney taken within 24 hours: N/A Was Clonidine taken within 24 hours: N/A Last intake: Intake Last Liquid Date 05/21/23 Last Solid Date 05/21/23 Social No alcohol and No tobacco Exam alert, oriented x 3, clear to auscultation bilaterally and regular rate & rhythm Airway Dentition: full CV/HEM Hypertension GI niessen fundoplication Metabolic Diabetes Mellitus and Hyperlipidemia Anesthetic Plan ASA status: 3 Anesthesia: General Risk of > 500 ml blood loss (7ml/kg in children): No Medications/Allergies Home Medications Medication Instructions Recorded Confirmed Last Taken Type blood sugar diagnostic (Blood #50 ea 01/11/22 05/21/23 05/21/23 08:00 Rx Glucose Test strips) diclofenac sodium 1 % topical gel 2 g topical QID PRN Pain 01/11/22 05/21/23 05/21/23 08:00 History (Arthritis Pain (diclofenac)) fluticasone propionate 50 1 spray intranasal DAILY 01/11/22 05/21/23 05/21/23 08:00 History mcg/actuation nasal spray,suspension lancets (Fingerstix Lancets) #100 ea 01/11/22 05/21/23 05/21/23 08:00 Rx blood-glucose meter #1 ea 01/14/22 05/21/23 05/21/23 08:00 Rx oxycodone-acetaminophen 7.5 mg-325 1 tab PO TID PRN pain 30 days #90 04/22/22 05/21/23 05/21/23 08:00 Rx mg tablet tabs terbinafine HCl 250 mg tablet 250 mg PO DAILY 12 weeks #84 tabs 04/22/22 05/21/23 05/21/23 08:00 Rx Diabetic Shoes with 3 sets of #1 ea 05/02/22 05/21/23 05/21/23 08:00 Rx inserts cetirizine 10 mg capsule (All Day 10 mg PO DAILY PRN allergy 07/22/22 05/21/23 05/21/23 08:00 Rx Allergy (cetirizine)) symptoms #90 caps losartan 25 mg tablet 25 mg PO DAILY #90 tabs 11/15/22 05/21/23 05/21/23 08:00 Rx omeprazole 40 mg capsule,delayed 40 mg PO DAILY #90 caps 12/29/22 05/21/23 05/21/23 08:00 Rx release aripiprazole 5 mg tablet 5 mg PO DAILY #90 tabs 05/10/23 05/21/23 05/21/23 08:00 Rx benztropine 1 mg tablet 1 mg PO DAILY #90 tabs 05/10/23 05/21/23 05/21/23 08:00 Rx trazodone 150 mg tablet 150 mg PO .HS #90 tabs 05/10/23 05/21/23 05/20/23 21:00 Rx baclofen 20 mg tablet 20 mg PO TID #270 tabs 05/17/23 05/21/23 05/21/23 08:00 Rx celecoxib 200 mg capsule 200 mg PO DAILY #90 caps 05/17/23 05/21/23 05/21/23 08:00 Rx amlodipine 5 mg tablet 5 mg PO BID 05/21/23 05/21/23 05/21/23 08:00 History metformin 500 mg tablet 1,000 mg PO DAILY 05/21/23 05/21/23 05/21/23 08:00 History metformin 500 mg tablet See Rx Instructions .Route .COMPLEX 05/21/23 05/21/23 05/21/23 08:00 History rosuvastatin 40 mg tablet 40 mg PO BEDTIME 05/21/23 05/21/23 05/20/23 21:00 History sennosides 8.6 mg-docusate sodium 2 tab-cap PO BID PRN Constipation 05/21/23 05/21/23 05/21/23 08:00 History 50 mg tablet pregabalin 75 mg capsule 75 mg PO BID #60 caps 05/22/23 Unknown Rx Allergies Allergy/AdvReac Type Severity Reaction Status Date / Time No Known Allergies Allergy Verified 05/21/23 18:29 Current Medications Generic Name Dose Route Start Last Admin Trade Name Freq PRN Reason Stop Dose Admin Benztropine Mesylate 1 mg 05/22/23 09:00 05/22/23 09:41 Benztropine 1 Mg Tablet PO 1 mg DAILY DANNIE Administration Enoxaparin Sodium 40 mg 05/21/23 23:15 05/22/23 00:09 Enoxaparin 40 Mg/0.4 Ml Syringe SUBCUT 40 mg Q24H DANNIE Administration Hydromorphone HCl 1 mg 05/21/23 23:15 05/22/23 10:02 Hydromorphone 1 Mg/Ml Inj 1 Ml IVP 1 mg Q4H PRN Administration PAIN Sodium Chloride 1,000 mls @ 75 mls/hr 05/21/23 23:15 05/22/23 00:09 Sodium Chloride 0.9% IV 75 mls/hr .[id number] DANNIE Administration Piperacillin Sod/Tazobactam 50 mls @ 12.5 mls/hr 05/22/23 07:00 05/22/23 10:58 Sod 3.375 gm/ Sodium Chloride IV 0 mls/hr Q8H DANNIE Infusion Insulin Human Lispro 0 unit 05/22/23 08:00 05/22/23 09:40 Insulin Lispro 100 Unit/1 Ml SUBCUT 6 unit WM&BEDTIME DANNIE Administration Protocol Pantoprazole Sodium 40 mg 05/21/23 23:15 05/22/23 00:10 Pantoprazole 40 Mg Sdv IVP 40 mg Q24H DANNIE Administration Pregabalin 75 mg 05/22/23 09:00 05/22/23 09:41 Pregabalin 75 Mg Capsule PO 75 mg BID DANNIE Administration Trazodone HCl 150 mg 05/21/23 23:30 05/22/23 00:09 Trazodone 150 Mg Tablet PO 150 mg BEDTIME DANNIE Administration PFSH Anesthesia Medical History Psychiatric care Borderline hypercholesterolemia Diabetic neuropathy Chronic low back pain Diabetes Hypertension Surgical History History of Esther fundoplication History of spinal surgery x2 spinal stimulators placed History of back surgery Family History Father CAD (coronary artery disease) Mother Cancer breast Grandmother Diabetes Denies family history of Clotting disorder Dementia Hyperlipidemia Psychiatric illness Chronic kidney disease (CKD) Anesthesia complication Bleeding disorder Lung disease Hypertension Stroke Social History Smoking and tobacco/nicotine status: never used tobacco/nicotine Alcohol intake: never Substance/Drug Use: never Caregiver/support person: No Lives independently: Yes Household members: spouse Marital status: Number of children: 0 Current occupational status: disabled Current gender identity: Male Data Anesthesia 05/22/23 00:50 05/22/23 00:50 Short CBC 05/21/23 05/22/23 Range/Units 18:54 00:50 WBC 4.27 9.33 (3.29-11.43) 10^3/uL Hgb 15.10 13.60 (11.27-16.99) g/dL Hct 45.2 40.4 (37-53) % MCV 85.4 86.3 (82-101) fl Plt Count 182 195 (157-399) 10^3/cmm Neut % (Auto) 86.2 91.6 % Neut # (Auto) 3.68 8.55 H (1.8-7.7) 10^3/uL BMP 05/21/23 05/22/23 18:54 00:50 Sodium 139 141 Potassium 3.8 3.3 L Chloride 101 104 Carbon Dioxide 26 25 BUN 14 13 Creatinine 0.7 0.8 Glucose 279 H 172 H Calcium 9.3 8.3 L Cardiac Enzymes 05/21/23 05/21/23 05/22/23 Range/Units 18:54 20:35 00:50 Troponin T Baseline 7 (0-15) ng/L Troponin T 120 Minute 11.57 (0-15) ng/L Delta Troponin T 4.57 (0-10) ABS# Troponin T Hi Sens 6Hr 13.70 (0-15) ng/L Troponin T Hi Sens 6Hr Delta 6.70 (0-12) ng/L Liver Function 05/21/23 05/22/23 Range/Units 18:54 00:50 Total Bilirubin 1.8 H 3.0 H (0.15-1.2) mg/dL AST 406 H 406 H (0-40) U/L ALT 182 H 320 H (0-41) U/L Alkaline Phosphatase 339 H 284 H (40-130) U/L Albumin 4.4 3.7 (3.5-5.2) g/dL Urine 05/21/23 05/22/23 Range/Units 21:51 09:30 Urine Color Yellow Dark yellow (Yellow) Urine Appearance Clear Clear (CLEAR) Urine pH 5 5 (5-7) Ur Specific [place] 1.005 1.015 (1.005-1.030) Urine Protein Neg Trace (Negative) Urine Glucose (UA) 2+ H 1+ H (Normal) Urine Ketones Negative Negative (Negative) Urine Nitrate Negative Negative (Negative) Urine Bilirubin Neg 2+ H (Negative) Ur Leukocyte Esterase Negative Negative (Negative) Urine RBC Rare (0-2) /hpf Urine WBC 0-4 H (0-5) /hpf COVID Results 05/21/23 21:17 SARS-CoV-2 Ag (Rapid) negative Coags 05/21/23 18:54 PT 13.50 INR 1.00 Microbiology 05/21/23 20:25 Blood Culture - Preliminary Blood 05/21/23 20:30 Blood Culture - Preliminary Blood Cardiac Studies: 2 No Data to Display
[2023-05-22] MEDS: lidocaine-epi 2% PF 1:200,000 20 mL SDV INJECTION (13:33)
--- NOTE | 2023-05-22 13:54 | PM.OP ---
Operative Report Date of procedure: May 22, 2023 Pre-op diagnosis: Acute calculOus cholecystitis Hyperbilirubinemia Possible choledocholithiasis Post-op diagnosis: Acute calculOus cholecystitis Hyperbilirubinemia Choledocholithiasis Procedure done: Laparoscopic cholecystectomy with intraoperative cholangiogram Implants: 19 [place] Chris drain Specimens removed/disposition: Gallbladder Surgeon: Sriram White DO Anesthesia: General and Local Estimated blood loss (mL): 10 Complications: None apparent Findings: Choledocholithiasis Brief History: This is a very pleasant 57-year-old gentleman who came into the hospital with right upper quadrant abdominal pain and nausea and diarrhea. Gallbladder ultrasound showed acute calculous cholecystitis. His bilirubin was 1.8 on presentation and ultrasound showed a normal common bile duct. Laparoscopic cholecystectomy with intraoperative cholangiogram was indicated. The risk and benefits were explained and documented. Procedure: Patient was wheeled into the operative room and placed on the OR table in a supine position. Abdomen was inspected prepped and draped in usual sterile fashion. Time-out was performed and all present were in agreement. A 15 blade scalp was used to make a stab incision in the left upper quadrant and intra-abdominal insufflation was achieved using a Veress needle. After localizing the tissue incisions were made and a 5 millimeter trocar was placed into the umbilicus as well as 2 in the right upper quadrant. A 12 millimeter trocar was placed in the epigastrium. Gallbladder was grasped and elevated. The triangle of Calot was carefully dissected using blunt dissection and electrocautery until the triangle of [place]ot clearly identified. The cystic duct was clipped proximally and partially ligated just distal to this. The cholangiocatheter was fed into the cystic duct and clipped into place. A cholangiogram was performed and a large obstructing distal common bile duct stone was seen.the cholangiocatheter was removed. The cystic duct was double clipped distally. The duct was then ligated proximally. The cystic artery was doubly clipped and ligated. The gallbladder was then removed from the liver bed using electrocautery. The gallbladder was removed from the abdomen using an Endo-Catch bag through the epigastric incision. The liver bed was inspected and no bleeding was controlled with electrocautery. A 19 [place] Chris drain was placed through the right upper quadrant port and into Morison's pouch. This was sewn into place with 2-0 silk. The abdomen was irrigated and suctioned. All ports removed. Skin was washed and dried. Incisions were closed with 4-0 Monocryl in a subcuticular interrupted fashion. Skin glue was applied. Patient tolerated the procedure well.
--- NOTE | 2023-05-22 13:59 | PM.TDS ---
Transfer Summary Providers Date of Admission: 05/21/23 22:19 Date of Discharge/Transfer: 05/22/23 Attending Provider at Admission: Kelley Lyon MD Attending Provider at Transfer: Evelyn Nielson MD Primary Care Provider: Ananth Hills MD Transfer Plans: Anticipated date of transfer: 05/22/23. Diagnoses at Discharge Discharge Diagnosis (1) Acute cholecystitis: Status: Acute (2) Transaminitis: Status: Acute (3) Nephrolithiasis: Status: Acute Reason for Visit Reason for Visit cp Brief History: [place] is a 57 year old male With a past medical history of hypertension, chronic lower back pain related to form injury several years ago, diabetes mellitus presenting to the hospital today with chief complaints of epigastric pain radiating onto the right side of his chest. States that he is having difficulty with breathing as pain makes him catch his breath. Denies any nausea vomiting or diarrhea. Denies any fever. Denies any cough or expectoration. CT of the chest performed at the ER was negative for PE. Noted to have a dilated ascending thoracic aortic aneurysm at 3.6 cm without any emergent vascular concerns. Bilateral dependent atelectasis versus infiltrate. Cholelithiasis with gallbladder wall thickening followed up with an ultrasound concerning for acute cholecystitis. Hospital Course Hospital Course Admitted for epigastric pain radiating to right side of his chest along with nausea vomiting. Admitted for cholecystitis. Zosyn started. CT abdomen pelvis obtained shows cholelithiasis with possible gallbladder wall thickening. Mild perinephric edema bilaterally reflecting renal sufficiency. Right distal ureter 5.3 mm calculus suspected, negative for hydronephrosis hydroureter. CTA chest negative for PE. Does have a chronic pain spinal stimulator in place. Gallbladder ultrasound showed acute calculus cholecystitis. Bilirubin elevated on presentation ultrasound showed a common bile duct. Laparoscopic cholecystectomy performed and cholangiogram was also done. It shows a large obstructing distal common bile duct stone. Gallbladder removed. 19 Ukrainian drain placed through the right upper quadrant port into Morison's pouch. Patient will require ERCP at this point. Will need to transfer to higher level of care. I [place] [facility] [place] [facility] [place] [place] there is no bed available anywhere. Currently have presented the case to [facility]. They will be working on a bed and calling back to let me know if there is availability at this time. Once bed obtained patient will be transferred to higher level of care for gastroenterology and ERCP. This document to serve as transfer summary. Patient aware of above possible plan prior to cholecystectomy and consented for transfer. Physical Exam Narrative: Resting comfortably in bed, patient postop. Lungs clear to auscultation Abdomen soft, appropriately tender to palpation. Patient drowsy. TS Data Studies Completed and Pending Pending at discharge Category Date Time Status Basic Metabolic Panel AM LABS Lab 05/23/23 04:00 Ordered Blood Culture Stat Lab 05/21/23 20:30 Results Complete Blood Count w/Auto AM LABS Lab 05/23/23 04:00 Ordered Magnesium AM LABS Lab 05/23/23 04:00 Ordered Pathology: Surgical [PTH] Routine Pth 05/22/23 13:21 Received Completed Studies During Hospitalization Category Date Time Status CT angio chest w abd pel w con Stat Cat Scan 05/21/23 18:57 Completed CXRP [XR chest 1V portable [id number]] Stat Exams 05/21/23 18:51 Completed US gall bladder [id number] Stat Ultrasound 05/21/23 20:03 Completed Laboratory Last Values WBC 9.33 10^3/uL (3.29-11.43) 05/22/23 00:50 RBC 4.68 10^6/uL (3.85-5.65) 05/22/23 00:50 Hgb 13.60 g/dL (11.27-16.99) 05/22/23 00:50 Hct 40.4 % (37-53) 05/22/23 00:50 MCV 86.3 fl (82-101) 05/22/23 00:50 MCH 29.1 pg (27-33) 05/22/23 00:50 MCHC 33.7 g/dL (30-55) 05/22/23 00:50 RDW 13.2 % (12.1-15.1) 05/22/23 00:50 Plt Count 195 10^3/cmm (157-399) 05/22/23 00:50 MPV 10.0 fL (7.4-10.4) 05/22/23 00:50 Neut % (Auto) 91.6 % 05/22/23 00:50 Lymph % (Auto) 2.9 % 05/22/23 00:50 [place] % (Auto) 3.8 % 05/22/23 00:50 Eos % (Auto) 0.9 % 05/22/23 00:50 Baso % (Auto) 0.4 % 05/22/23 00:50 Neut # (Auto) 8.55 10^3/uL (1.8-7.7) H 05/22/23 00:50 Lymph # (Auto) 0.3 10^3/uL (0.8-4.8) L 05/22/23 00:50 [place] # (Auto) 0.4 10^3/uL (0.2-0.9) 05/22/23 00:50 Eos # (Auto) 0.1 10^3/uL (0.0-0.8) 05/22/23 00:50 Baso # (Auto) 0.0 10^3/uL (0.0-0.1) 05/22/23 00:50 Nucleated RBC % (auto) 0 % 05/22/23 00:50 Nucleated RBCs # 0.0 /100WBC 05/22/23 00:50 PT 13.50 SECONDS (12.1-14.9) 05/21/23 18:54 INR 1.00 (0.8-1.2) 05/21/23 18:54 Sodium 141 mmol/L (136-145) 05/22/23 00:50 Potassium 3.3 mmol/L (3.5-5.1) L 05/22/23 00:50 Chloride 104 mmol/L (98-107) 05/22/23 00:50 Carbon Dioxide 25 mmol/L (22-29) 05/22/23 00:50 Anion Gap 15.3 (5-19) 05/22/23 00:50 BUN 13 mg/dL (6-20) 05/22/23 00:50 Creatinine 0.8 mg/dL (0.7-1.2) 05/22/23 00:50 GFR Calculation 100.4 mL/min (90-130) 05/22/23 00:50 Glucose 172 mg/dL (65-115) H 05/22/23 00:50 POC Glucose 144 mg/dL (70-110) H 05/22/23 11:18 Calculated Osmolality 296 mOsm/kg (285-295) H 05/22/23 00:50 Lactic Acid 1.6 mmol/L (0.5-2.2) 05/21/23 20:25 Calcium 8.3 mg/dL (8.5-10.5) L 05/22/23 00:50 Total Bilirubin 3.0 mg/dL (0.15-1.2) H 05/22/23 00:50 AST 406 U/L (0-40) H 05/22/23 00:50 ALT 320 U/L (0-41) H 05/22/23 00:50 Alkaline Phosphatase 284 U/L (40-130) H 05/22/23 00:50 Troponin T Baseline 7 ng/L (0-15) 05/21/23 18:54 Troponin T 120 Minute 11.57 ng/L (0-15) 05/21/23 20:35 Delta Troponin T 4.57 ABS# (0-10) 05/21/23 20:35 Troponin T Hi Sens 6Hr 13.70 ng/L (0-15) 05/22/23 00:50 Troponin T Hi Sens 6Hr Delta 6.70 ng/L (0-12) 05/22/23 00:50 Total Protein 5.2 g/dL (6.6-8.7) L 05/22/23 00:50 Albumin 3.7 g/dL (3.5-5.2) 05/22/23 00:50 Globulin 1.5 g/dL (1.3-4.6) 05/22/23 00:50 Lipase 12 U/L (13-60) L 05/21/23 18:54 Urine Color Dark yellow (Yellow) 05/22/23 09:30 Urine Appearance Clear (CLEAR) 05/22/23 09:30 Urine pH 5 (5-7) 05/22/23 09:30 Ur Specific [place] 1.015 (1.005-1.030) 05/22/23 09:30 Urine Protein Trace (Negative) 05/22/23 09:30 Urine Glucose (UA) 1+ (Normal) H 05/22/23 09:30 Urine Ketones Negative (Negative) 05/22/23 09:30 Urine Blood Neg (Negative) 05/22/23 09:30 Urine Nitrate Negative (Negative) 05/22/23 09:30 Urine Bilirubin 2+ (Negative) H 05/22/23 09:30 Urine Urobilinogen 4 mg/dL (Negative) H 05/22/23 09:30 Ur Leukocyte Esterase Negative (Negative) 05/22/23 09:30 Urine RBC Rare /hpf (0-2) 05/22/23 09:30 Urine WBC 0-4 /hpf (0-5) H 05/22/23 09:30 Ur Squamous Epith Cells 0-4 /hpf (0-5) H 05/22/23 09:30 Amorphous Sediment Not Reportable 05/22/23 09:30 Urine Bacteria Trace /hpf (NONE) 05/22/23 09:30 Hyaline Casts 0-4 /lpf H 05/22/23 09:30 Urine Mucus Trace /hpf 05/22/23 09:30 Influenza Type A Ag negative (Negative) 05/21/23 21:17 Influenza Type B Ag negative (Negative) 05/21/23 21:17 SARS-CoV-2 Ag (Rapid) negative (Negative) 05/21/23 21:17 Radiology Impressions Chest X-Ray 05/21/23 18:51 IMPRESSION: 1. Bibasilar atelectasis versus infiltrate. 2. Cardiomegaly. 3. Spinal stimulator. Chest/Abdomen/Pelvis CT 05/21/23 18:57 IMPRESSION: 1. Negative for pulmonary embolus. 2. Ascending thoracic aorta dilated to 3.6 cm. 3. Cardiomegaly. 4. Coronary artery atherosclerotic calcifications. 5. Bilateral dependent atelectasis versus infiltrate. 6. Spinal stimulator. IMPRESSION: 1. Cholelithiasis with possible gallbladder wall thickening, ultrasound could further characterize this. 2. Right kidney cyst, negative for follow up. 3. Bilateral nonobstructing renal calyceal stones. 4. Mild perinephric edema bilaterally likely reflecting renal sufficiency, please correlate for pyelonephritis. 5. Right distal ureter 5.3 mm calculus suspected, best seen series 8, image 78, negative for hydronephrosis hydroureter. 6. Spinal stimulator in the thoracic spine. 7. Lumbar spine surgical hardware seen in place. 8. Gastric surgical sutures. Gallbladder Ultrasound 05/21/23 20:03 IMPRESSION: 1. Cholelithiasis with gallbladder wall thickening to 6 mm concerning for cholecystitis. 2. Liver enlarged to 19 cm with hepatic steatosis suspected. Recent Clincial Data Last Vital Signs Temp 97.3 F L 05/22/23 08:00 Pulse 94 05/22/23 08:00 Resp 16 05/22/23 10:02 BP 100/67 05/22/23 08:00 Pulse Ox 96 05/22/23 07:36 O2 Del Method Nasal Cannula 05/22/23 07:36 Vital Signs Temp Pulse Resp BP Pulse Ox O2 Del Method 05/22/23 10:02 16 05/22/23 08:00 97.3 F L 94 20 H 100/67 05/22/23 07:36 97.3 F L 94 20 H 100/67 96 Nasal Cannula 05/22/23 04:21 97.8 F 99 16 107/66 94 Nasal Cannula Intake & Output/Weight 05/20/23 05/21/23 05/22/23 05/23/23 05:59 06:59 06:59 06:59 Intake Total 1300 / 1300 13.958 / 13.958 Balance 1300 / 1300 13.958 / 13.958 Weight 112.173 kg Vitals Last Vital Signs Temp 97.3 F L 05/22/23 08:00 Pulse 94 05/22/23 08:00 Resp 16 05/22/23 10:02 BP 100/67 05/22/23 08:00 Pulse Ox 96 05/22/23 07:36 O2 Del Method Nasal Cannula 05/22/23 07:36 TS Medications Medications Acetaminophen (Acetaminophen 325 Mg Tablet) 650 mg PO Q6H PRN PRN Reason: Mild/Mod Pain Or Temp >/= 101 Albuterol Sulfate (Albuterol 2.5 Mg/3 Ml Neb) 2.5 mg INHALATION ONCE PRN PRN Reason: WHEEZING Benztropine Mesylate (Benztropine 1 Mg Tablet) 1 mg PO DAILY DANNIE Last Admin: 05/22/23 09:41 Dose: 1 mg Dexamethasone (Dexamethasone 4 Mg/Ml Inj) 4 mg IVP Q5M PRN PRN Reason: Nausea unrelieved by Reglan Stop: 05/23/23 13:53 Diclofenac Sodium (Diclofenac 1% Topical Gel 100 Gm) 4 applic TOPICAL QID PRN PRN Reason: Pain Enoxaparin Sodium (Enoxaparin 40 Mg/0.4 Ml Syringe) 40 mg SUBCUT Q24H [facility] Last Admin: 05/22/23 00:09 Dose: 40 mg Famotidine (Famotidine 20 Mg/2 Ml Inj) 20 mg IVP ONCE PRN PRN Reason: HEARTBURN Fentanyl (Fentanyl 50 Mcg/Ml Inj 2ml) 100 mcg IVP ONCE PRN PRN Reason: Per anesthesia for block Fentanyl (Fentanyl 50 Mcg/Ml Inj 2ml) 50 mcg IVP Q10M PRN PRN Reason: Preop Pain Fentanyl (Fentanyl 50 Mcg/Ml Inj 2ml) 50 mcg IVP Q5M PRN PRN Reason: Pain level 6-10 PACU Phase I Stop: 05/23/23 13:53 Hydromorphone HCl (Hydromorphone 1 Mg/Ml Inj 1 Ml) 1 mg IVP Q4H PRN PRN Reason: PAIN Last Admin: 05/22/23 10:02 Dose: 1 mg Hydromorphone HCl (Hydromorphone 1 Mg/Ml Inj 1 Ml) 0.25 mg IVP Q10M PRN PRN Reason: Pain level 4-6 PACU Phase I Stop: 05/23/23 13:53 Hydromorphone HCl (Hydromorphone 1 Mg/Ml Inj 1 Ml) 0.5 mg IVP Q10M PRN PRN Reason: Pain level 7-10 PACU Phase I Stop: 05/23/23 13:53 Sodium Chloride (Sodium Chloride 0.9%) 1,000 mls @ 75 mls/hr IV .[id number] [facility] Last Admin: 05/22/23 00:09 Dose: 75 mls/hr Dextrose (D5w) 500 mls @ 0 mls/hr IV ONCE PRN; Protocol PRN Reason: Adult Acute Hypoglycemia Prot Dextrose (D10w) 125 mls @ 750 mls/hr IV PRN PRN; Protocol PRN Reason: Adult Acute Hypoglycemia Nursing Protocol Dextrose (D10w) 250 mls @ 1,000 mls/hr IV PRN PRN; Protocol PRN Reason: Adult Acute Hypoglycemia Nursing Protocol Piperacillin Sod/Tazobactam (Sod 3.375 gm/ Sodium Chloride) 50 mls @ 12.5 mls/hr IV Q8H [facility] Last Infusion: 05/22/23 10:58 Dose: 0 mls/hr Sodium Chloride (Sodium Chloride 0.9%) 1,000 mls @ 30 mls/hr IV .Q24H DANNIE Stop: 05/23/23 12:14 Sodium Chloride (Sodium Chloride 0.9%) 500 mls @ 999 mls/hr IV .Q31M PRN PRN Reason: HYPOTENSION Insulin Human Lispro (Insulin Lispro 100 Unit/1 Ml) 0 unit SUBCUT WM&BEDTIME [facility]; Protocol Last Admin: 05/22/23 09:40 Dose: 6 unit Ipratropium [place] (Ipratropium 0.5 Mg/2.5 Ml Neb) 0.5 mg INHALATION ONCE PRN PRN Reason: WHEEZING Lidocaine HCl (Lidocaine 1% Inj 10 Ml (Per Ml)) 0.1 ml INTRADERMA PRN PRN PRN Reason: anesthetic prior to IV start Stop: 05/23/23 12:08 Meperidine HCl (Meperidine 50 Mg/Ml Inj) 12.5 mg IVP Q5M PRN PRN Reason: Shivering PACU Phase I Stop: 05/23/23 13:53 Metoclopramide HCl (Metoclopramide 5 Mg/Ml Sdv 2 Ml) 10 mg IVP ONCE PRN PRN Reason: N/V if zofran ineffective Metoclopramide HCl (Metoclopramide 5 Mg/Ml Sdv 2 Ml) 10 mg IVP Q5M PRN PRN Reason: Nausea unrelieved by Zofran Stop: 05/23/23 13:53 Midazolam HCl (Midazolam 1 Mg/Ml Inj 2 Ml) 2 mg IVP Q5M PRN PRN Reason: Preop Anxiety Midazolam HCl (Midazolam 1 Mg/Ml Inj 5 Ml) 5 mg IVP ONCE PRN PRN Reason: Per anesthesia for block Morphine Sulfate (Morphine 4 Mg/Ml Sdv 1 Ml) 2 mg IVP Q2M PRN PRN Reason: Pain level 6-10 PACU Phase I Stop: 05/23/23 13:53 Morphine Sulfate (Morphine 4 Mg/Ml Sdv 1 Ml) 2 mg IVP Q5M PRN PRN Reason: Pain level 2-5 PACU Phase I Stop: 05/23/23 13:53 Morphine Sulfate (Morphine 4 Mg/Ml Sdv 1 Ml) 0 mg IVP Q5M PRN PRN Reason: Breakthrough Pain PACU PhaseII Naloxone HCl (Naloxone 0.4 Mg/Ml Sdv) 0.1 mg IVP Q2M PRN PRN Reason: OPIATERV Ondansetron HCl (Ondansetron 2 Mg/Ml Sdv 2 Ml) 4 mg IVP Q8H PRN PRN Reason: vomiting, or N/V if npo Ondansetron HCl (Ondansetron 2 Mg/Ml Sdv 2 Ml) 4 mg IVP Q5M PRN PRN Reason: NAUSEA AND VOMITING Ondansetron HCl (Ondansetron 2 Mg/Ml Sdv 2 Ml) 4 mg IVP Q15M PRN PRN Reason: Nausea/Vomiting PACU PHASE II Ondansetron HCl (Ondansetron 2 Mg/Ml Sdv 2 Ml) 4 mg IVP Q5M PRN PRN Reason: Nausea PACU Phase I Stop: 05/23/23 13:53 Pantoprazole Sodium (Pantoprazole 40 Mg Sdv) 40 mg IVP Q24H [facility] Last Admin: 05/22/23 00:10 Dose: 40 mg Pregabalin (Pregabalin 75 Mg Capsule) 75 mg PO BID [facility] Last Admin: 05/22/23 09:41 Dose: 75 mg Scopolamine (Scopolamine 1.5 Patch) 1 patch TRANSDERMA ONCE PRN PRN Reason: Nausea/ Vomiting Prophylaxis Trazodone HCl (Trazodone 150 Mg Tablet) 150 mg PO BEDTIME [facility] Last Admin: 05/22/23 00:09 Dose: 150 mg Discontinued Medications Acetaminophen (Acetaminophen 500 Mg Tablet) 1,000 mg PO ONCE ONE Stop: 05/21/23 20:52 Last Admin: 05/21/23 21:10 Dose: 1,000 mg Benzocaine (Cetylpyridinium Lozenge) 1 each MUCOUS MEM ONCE ONE Stop: 05/22/23 13:54 Dexamethasone (Dexamethasone 4 Mg/Ml Inj) Confirm Administered Dose 8 mg .ROUTE .STK-MED ONE Stop: 05/22/23 12:05 Ephedrine Sulfate (Ephedrine 50 Mg/Ml Inj) Confirm Administered Dose 50 mg .ROUTE .STK-MED ONE Stop: 05/22/23 12:42 Fentanyl (Fentanyl 50 Mcg/Ml Inj 2ml) Confirm Administered Dose 100 mcg .ROUTE .STK-MED ONE Stop: 05/22/23 12:05 Fentanyl (Fentanyl 50 Mcg/Ml Inj 2ml) Confirm Administered Dose 100 mcg .ROUTE .STK-MED ONE Stop: 05/22/23 12:59 Glycopyrrolate (Glycopyrrolate 0.2 Mg/Ml Sdv 2 Ml) Confirm Administered Dose 0.4 mg .ROUTE .STK-MED ONE Stop: 05/22/23 13:16 Glycopyrrolate (Glycopyrrolate 0.2 Mg/Ml Sdv 2 Ml) Confirm Administered Dose 0.4 mg .ROUTE .STK-MED ONE Stop: 05/22/23 13:16 Sodium Chloride (Sodium Chloride 0.9%) 1,000 mls @ 999 mls/hr IV .Q1H1M ONE Stop: 05/21/23 21:03 Last Infusion: 05/21/23 22:45 Dose: Infused Vancomycin HCl 1,000 mg/ (Sodium Chloride) 250 mls @ 250 mls/hr IV ONCE ONE; Protocol Stop: 05/21/23 21:02 Last Infusion: 05/21/23 22:45 Dose: Infused Piperacillin Sod/Tazobactam (Sod 3.375 gm/ Sodium Chloride) 50 mls @ 100 mls/hr IV ONCE ONE; Protocol Stop: 05/21/23 20:32 Last Infusion: 05/21/23 22:45 Dose: Infused Piperacillin Sod/Tazobactam (Sod / Sodium Chloride) 50 mls @ 0 mls/hr [id number] CONT DANNIE; Protocol Lidocaine HCl 5 ml/ Potassium (Chloride) 105 mls @ 26.25 mls/hr IV ONCE ONE Stop: 05/22/23 09:37 Last Admin: 05/22/23 09:40 Dose: 26.25 mls/hr Lidocaine HCl (Xylocaine) Confirm Administered Dose 5 mls @ as directed .ROUTE .STK-MED ONE Stop: 05/22/23 12:04 Iohexol (Iohexol 350 Mg/Ml 500 Ml Btl (Per Ml)) 0 ml IV ONCE ONE Stop: 05/21/23 19:26 Last Admin: 05/21/23 19:25 Dose: 100 ml Lidocaine/Epinephrine (Lidocaine-Epi 2% Pf 1:200,000 20 Ml Sdv) Confirm Administered Dose 20 ml .ROUTE .STK-MED ONE Stop: 05/22/23 11:52 Lidocaine/Epinephrine (Lidocaine-Epi 2% Pf 1:200,000 20 Ml Sdv) 20 ml INJECTION ONCE ONE Stop: 05/22/23 13:33 Last Admin: 05/22/23 13:33 Dose: 4 ml Midazolam HCl (Midazolam 1 Mg/Ml Inj 2 Ml) Confirm Administered Dose 2 mg .ROUTE .STK-MED ONE Stop: 05/22/23 12:05 Morphine Sulfate (Morphine 4 Mg/Ml Sdv 1 Ml) 4 mg IVP ONCE ONE Stop: 05/21/23 19:25 Last Admin: 05/21/23 19:39 Dose: 4 mg Neostigmine Methylsulfate (Neostigmine 1 Mg/Ml Sdv 10 Ml) Confirm Administered Dose 10 mg .ROUTE .STK-MED ONE Stop: 05/22/23 13:16 Ondansetron HCl (Ondansetron 2 Mg/Ml Sdv 2 Ml) 4 mg IVP ONCE ONE Stop: 05/21/23 19:25 Last Admin: 05/21/23 19:40 Dose: 4 mg Ondansetron HCl (Ondansetron 2 Mg/Ml Sdv 2 Ml) Confirm Administered Dose 4 mg .ROUTE .STK-MED ONE Stop: 05/22/23 12:05 Pantoprazole Sodium (Pantoprazole Dr 40 Mg Tablet) 40 mg PO DAILY DANNIE Propofol (Propofol 10 Mg/Ml Sdv 20 Ml) Confirm Administered Dose 200 mg .ROUTE .STK-MED ONE Stop: 05/22/23 12:04 Rocuronium [place] (Rocuronium 10 Mg/Ml Inj 5ml) Confirm Administered Dose 50 mg .ROUTE .STK-MED ONE Stop: 05/22/23 12:05 Succinylcholine Chloride (Succinylcholine 20 Mg/Ml Sdv 10ml) Confirm Administered Dose 200 mg .ROUTE .STK-MED ONE Stop: 05/22/23 12:05 Vasopressin (Vasopressin 20 Unit/Ml Inj) Confirm Administered Dose 20 unit .ROUTE .STK-MED ONE Stop: 05/22/23 12:45 Allergies No Known Allergies Allergy (Verified 05/21/23 18:29) Home Medications blood sugar diagnostic (Blood Glucose Test strips) #50 ea 01/11/22 [Rx Confirmed 05/21/23] diclofenac sodium 1 % topical gel (Arthritis Pain (diclofenac)) 2 g topical QID PRN Pain 01/11/22 [History Confirmed 05/21/23] fluticasone propionate 50 mcg/actuation nasal spray,suspension 1 spray intranasal DAILY 01/11/22 [History Confirmed 05/21/23] lancets (Fingerstix Lancets) #100 ea 01/11/22 [Rx Confirmed 05/21/23] blood-glucose meter #1 ea 01/14/22 [Rx Confirmed 05/21/23] oxycodone-acetaminophen 7.5 mg-325 mg tablet 1 tab PO TID PRN pain 30 days #90 tabs 04/22/22 [Rx Confirmed 05/21/23] terbinafine HCl 250 mg tablet 250 mg PO DAILY 12 weeks #84 tabs 04/22/22 [Rx Confirmed 05/21/23] Diabetic Shoes with 3 sets of inserts #1 ea 05/02/22 [Rx Confirmed 05/21/23] cetirizine 10 mg capsule (All Day Allergy (cetirizine)) 10 mg PO DAILY PRN allergy symptoms #90 caps 07/22/22 [Rx Confirmed 05/21/23] losartan 25 mg tablet 25 mg PO DAILY #90 tabs 11/15/22 [Rx Confirmed 05/21/23] omeprazole 40 mg capsule,delayed release 40 mg PO DAILY #90 caps 12/29/22 [Rx Confirmed 05/21/23] aripiprazole 5 mg tablet 5 mg PO DAILY #90 tabs 05/10/23 [Rx Confirmed 05/21/23] benztropine 1 mg tablet 1 mg PO DAILY #90 tabs 05/10/23 [Rx Confirmed 05/21/23] trazodone 150 mg tablet 150 mg PO .HS #90 tabs 05/10/23 [Rx Confirmed 05/21/23] baclofen 20 mg tablet 20 mg PO TID #270 tabs 05/17/23 [Rx Confirmed 05/21/23] celecoxib 200 mg capsule 200 mg PO DAILY #90 caps 05/17/23 [Rx Confirmed 05/21/23] amlodipine 5 mg tablet 5 mg PO BID 05/21/23 [History Confirmed 05/21/23] metformin 500 mg tablet 1,000 mg PO DAILY 05/21/23 [History Confirmed 05/21/23] metformin 500 mg tablet See Rx Instructions .Route .COMPLEX 05/21/23 [History Confirmed 05/21/23] rosuvastatin 40 mg tablet 40 mg PO BEDTIME 05/21/23 [History Confirmed 05/21/23] sennosides 8.6 mg-docusate sodium 50 mg tablet 2 tab-cap PO BID PRN Constipation 05/21/23 [History Confirmed 05/21/23] pregabalin 75 mg capsule 75 mg PO BID #60 caps 05/22/23 [Rx] Discharge Plan Discharge Condition: Stable Prescriptions: No Action fluticasone propionate 50 mcg/actuation spray,suspension 1 spray intranasal DAILY Rx Instructions: administer into each nostril diclofenac sodium [Arthritis Pain (diclofenac)] 1 % gel 2 g topical QID PRN (Reason: Pain) Rx Instructions: apply to single elbow, wrist or hand; for hand includes palm/fingers/back of hand (DME) Blood Glucose Test Strip See Rx Instructions .ROUTE .MEDSUPPLY Qty: 50 5RF Rx Instructions: As directed (DME) lancets [Fingerstix Lancets] [facility] See Rx Instructions .ROUTE .MEDSUPPLY Qty: 100 2RF Rx Instructions: As directed (DME) Diabetic Shoes with 3 sets of inserts See Rx Instructions .Route .MEDSUPPLY Qty: 1 0RF Rx Instructions: As directed omeprazole 40 mg capsule,delayed release(DR/EC) 40 mg PO DAILY Qty: 90 1RF oxycodone-acetaminophen 7.5-325 mg tablet 1 tab PO TID PRN (Reason: pain) 30 Days Qty: 90 0RF terbinafine HCl 250 mg tablet 250 mg PO DAILY 84 Days Qty: 84 0RF All Day Allergy (cetirizine) 10 mg capsule 10 mg PO DAILY PRN (Reason: allergy symptoms) Qty: 90 1RF aripiprazole 5 mg tablet 5 mg PO DAILY Qty: 90 0RF benztropine 1 mg tablet 1 mg PO DAILY Qty: 90 0RF trazodone 150 mg tablet 150 mg PO .HS Qty: 90 0RF (DME) blood-glucose meter [facility] See Rx Instructions .ROUTE .MEDSUPPLY Qty: 1 2RF Rx Instructions: use 4 times daily losartan 25 mg tablet 25 mg PO DAILY Qty: 90 1RF celecoxib 200 mg capsule 200 mg PO DAILY Qty: 90 0RF baclofen 20 mg tablet 20 mg PO TID Qty: 270 0RF pregabalin 75 mg capsule 75 mg PO BID Qty: 60 0RF metformin 500 mg Tablet See Rx Instructions .ROUTE .COMPLEX Rx Instructions: 500 mg orally with dinner metformin 500 mg tablet 1,000 mg PO DAILY Rx Instructions: 1000mg po daily with breakfast. Patient takes 1000mg in the AM and 500mg in the PM. sennosides-docusate sodium 8.6-50 mg tablet 2 tab-cap PO BID PRN (Reason: Constipation) amlodipine 5 mg tablet 5 mg PO BID rosuvastatin 40 mg tablet 40 mg PO BEDTIME Referrals: Ananth Hills MD [Primary Care Provider] - Discharge Diet: As Directed Patient Instructions: Opioid Safety, Post Anesthesia Care Transfer Attestations Time Spent in Transfer Care: greater than 30 min Quality Metrics Clinical Quality Measures [ No reported AMI, CVA or VTE this stay] Coding Level of Care Code 56446 Total time (in minutes) for Discharge: 65 Diagnoses Acute cholecystitis K81.0 Transaminitis R74.01 Nephrolithiasis N20.0
--- NOTE | 2023-05-22 15:00 | ANE.PACU2 ---
Inpatient post-anesthesia follow up: Airway intact: Yes Vital signs: Temperature 97.6 F Pulse Rate 99 Respiratory Rate 20 Blood Pressure 125/78 Pulse Oximetry 95 Oxygen Delivery Me thod Nasal Cannula Oxygen Flow Rate 2.5 Fraction of Inspir ed Oxygen Hydration adequate: Yes Nausea and vomiting: No Pain level: 1 Mental status: Baseline
[2023-05-22] MEDS: acetaminophen 325 mg Tablet 650 MG PO (15:37)
[2023-05-22 16:41] LABS: Glucose Point of Care 170 mg/dL (70-110)
--- NOTE | 2023-05-22 17:05 | PC.NURSE ---
Pt arrived from PACU with temp of 102.2, AMNA drain full, and 10/10 pain reported. Temp controlled with Tylenol, 25ml emptied from AMNA drain, and pain controlled with Dilaudid. Notified Dr. Nielson of status update.
[2023-05-22 20:47] LABS: Glucose Point of Care 161 mg/dL (70-110)
== END 2023-05-22 22:35 | disposition short-term general hospital (02) | DRG 417 ==
LOC: ER 22:17 → MEDSURG 22:19
PROVIDERS: Surgery; Admitting Provider Student in an Organized Health Care Education/Training Program; Emergency Provider Emergency Medicine; PCP Family Medicine; Visit Provider Internal Medicine
PROC: 0FT44ZZ Resection of Gallbladder, Percutaneous Endoscopic Approach (ICD-10-PCS; CPT 47562; principal; 2023-05-22 12:55)
DX: K80.42 Calculus of bile duct with acute cholecystitis without obstruction (principal); J18.9 Pneumonia, unspecified organism; N20.1 Calculus of ureter; K59.00 Constipation, unspecified; E78.00 Pure hypercholesterolemia, unspecified; E11.40 Type 2 diabetes mellitus with diabetic neuropathy, unspecified; G89.29 Other chronic pain; M54.50 Low back pain, unspecified; I10 Essential (primary) hypertension; I71.60 Thoracoabdominal aortic aneurysm, without rupture, unspecified; Z11.52 Encounter for screening for COVID-19; Z96.82 Presence of neurostimulator; Z79.84 Long term (current) use of oral hypoglycemic drugs
CPT/HCPCS: 36415; 36416; 71045; 71275; 74177; 74300; 76000; 76705; 80053; 81001; 81003; 82962; 83605; 83690; 84484; 85025; 85610; 87040; 87077; 87150; 87186; 87205; 87426; 87804; 88304; 93005; 96365; 96367; 96372; 96375; 99285; C9113; J0330; J1100; J1170; J1650; J1815; J2250; J2270; J2405; J2543; J2704; J2710; J3010; J3370; J3480; J3490; J7030; J7050; Q9967

== ENCOUNTER → 2023-05-31 10:37 | Outpatient (BNVA) | payer MEDICARE, SELFPAY | PROVIDERS: PCP Family Medicine; Visit Provider Surgery | DX: Z09 Encounter for follow-up examination after completed treatment for conditions other than malignant neoplasm (principal) | CPT/HCPCS: 99024 ==

== ENCOUNTER → 2023-11-22 11:36 | Outpatient (BNVA) | payer MEDICARE, SELFPAY | PROVIDERS: PCP Family Medicine; Visit Provider Family Medicine | DX: E11.9 Type 2 diabetes mellitus without complications (principal) | CPT/HCPCS: 80053; 80061; 83036; 85025 ==

== ENCOUNTER → 2024-04-18 11:29 | Outpatient (BNVA) | payer OTHER, SELFPAY | PROVIDERS: PCP Family Medicine; Visit Provider Family Medicine | DX: E11.9 Type 2 diabetes mellitus without complications (principal) | CPT/HCPCS: 80048; 83036 ==

== ENCOUNTER → 2024-05-08 07:55 | Outpatient (BNVA) | payer OTHER, SELFPAY | PROVIDERS: PCP Family Medicine; Visit Provider Podiatrist Foot & Ankle Surgery | DX: E11.40 Type 2 diabetes mellitus with diabetic neuropathy, unspecified (principal); L60.3 Nail dystrophy; L84 Corns and callosities; E11.8 Type 2 diabetes mellitus with unspecified complications; I73.9 Peripheral vascular disease, unspecified; G62.9 Polyneuropathy, unspecified; S93.326A Dislocation of tarsometatarsal joint of unspecified foot, initial encounter; X58.XXXA Exposure to other specified factors, initial encounter; Z79.84 Long term (current) use of oral hypoglycemic drugs | CPT/HCPCS: 73630 ==

== ENCOUNTER → 2024-07-10 08:10 | Outpatient (BNVA) | payer MEDICARE, SELFPAY | PROVIDERS: PCP Family Medicine; Visit Provider Podiatrist Foot & Ankle Surgery | DX: E11.42 Type 2 diabetes mellitus with diabetic polyneuropathy (principal); L60.3 Nail dystrophy; L84 Corns and callosities; I73.9 Peripheral vascular disease, unspecified; G62.9 Polyneuropathy, unspecified; S93.402A Sprain of unspecified ligament of left ankle, initial encounter; X58.XXXA Exposure to other specified factors, initial encounter | CPT/HCPCS: 73610 ==

== ENCOUNTER 2024-07-10 10:12 | Outpatient (CLI) | payer MEDICARE, SELFPAY | END 2024-07-10 10:13 | disposition home or self-care (01) | LOC: SPT 10:13 | PROVIDERS: PCP Family Medicine; Visit Provider Podiatrist Foot & Ankle Surgery | DX: Z46.89 Encounter for fitting and adjustment of other specified devices (principal); S93.402D Sprain of unspecified ligament of left ankle, subsequent encounter; X58.XXXD Exposure to other specified factors, subsequent encounter | CPT/HCPCS: 97760; L1902 ==

== ENCOUNTER → 2024-09-11 08:27 | Outpatient (BNVA) | payer MEDICARE, SELFPAY | PROVIDERS: PCP Family Medicine; Visit Provider Podiatrist Foot & Ankle Surgery | DX: M79.672 Pain in left foot (principal); E11.42 Type 2 diabetes mellitus with diabetic polyneuropathy; L60.3 Nail dystrophy; L84 Corns and callosities; I73.9 Peripheral vascular disease, unspecified; G62.9 Polyneuropathy, unspecified; S93.322A Subluxation of tarsometatarsal joint of left foot, initial encounter; X58.XXXA Exposure to other specified factors, initial encounter | CPT/HCPCS: 11056; 11721; 73630; 99214 ==

== ENCOUNTER → 2024-11-12 08:56 | Outpatient (BNVA) | payer MEDICARE, SELFPAY | PROVIDERS: PCP Family Medicine; Visit Provider Family Medicine | DX: Z13.6 Encounter for screening for cardiovascular disorders (principal); E11.9 Type 2 diabetes mellitus without complications; N40.0 Benign prostatic hyperplasia without lower urinary tract symptoms | CPT/HCPCS: 80053; 80061; 83036; 84153; 84439; 84443; 85025 ==

== ENCOUNTER → 2024-11-20 08:14 | Outpatient (BNVA) | payer MEDICARE, SELFPAY | PROVIDERS: PCP Family Medicine; Visit Provider Podiatrist Foot & Ankle Surgery | DX: E11.8 Type 2 diabetes mellitus with unspecified complications (principal); L60.3 Nail dystrophy; L84 Corns and callosities; I73.9 Peripheral vascular disease, unspecified; G62.9 Polyneuropathy, unspecified; S93.326A Dislocation of tarsometatarsal joint of unspecified foot, initial encounter; E11.42 Type 2 diabetes mellitus with diabetic polyneuropathy; S93.322A Subluxation of tarsometatarsal joint of left foot, initial encounter; X58.XXXA Exposure to other specified factors, initial encounter; Z79.84 Long term (current) use of oral hypoglycemic drugs | CPT/HCPCS: 11055; 11721; 99213 ==

== ENCOUNTER 2024-12-06 16:38 | Inpatient (IN) | payer MEDICARE, SELFPAY ==
[2024-12-06 16:46] VITALS: PULSE 115; RESP 16; TEMP 37.1; O2SAT 98
--- OUTSIDE RECORDS SUMMARY | 2024-12-06 16:46 | XMS_ITS | Patient Health Record ---
Author Organization [facility] Address [address] [place], [place] [id number] Care Team Providers Care Site Physician Name Role Phone NABOR MELENDEZ Primary Care Provider Shelley JUN HaiderPanchoJORGE Unavailable [phone] Reason For Referral No Information Medications Medication SIG (Take, Route, Frequency, Duration) Notes Start Date End Date Status Movantik 25 MG 1 tablet in the morn ing Orally Once a day Active Diclofenac Sodium 3 % 1 application to a ffected area Externally Twice a day Active metFORMIN HCl ER 500 MG TAKE 2 TABLETS B Y MOUTH ONCE A DAY Oral; Duration: 90 Active Abilify 5 MG 1 tablet Orally Once a day Active Losartan Potassium 25 MG TAKE 1 TABLET(S ) EVERY DAY BY ORAL ROUTE FOR 30 DAYS. Oral; Duration: 30 Active Rosuvastatin Calcium 40 MG TAKE 1 TABLET BY MOUTH ONCE A DAY Oral; Duration: 90 Active Omeprazole 20 MG 1 capsule Orally Onc e a day Active Allopurinol 100 MG TAKE 1 TABLET BY FOSTER TH 3 TIMES A DAY Oral; Duration: 90 Active Proctosol HC 2.5 % 1 application to aff ected area Rectal Twice a day Active traZODone HCl 150 MG TAKE 1/2 TABLET BY MOUTH AT BEDTIME HS Oral; Duration: 30 Active Venlafaxine HCl ER 150 MG TAKE 1 CAPSULE BY MOUTH ONCE A DAY Oral; Duration: 30 Active busPIRone HCl 15 MG TAKE 1 TABLET BY FOSTER TH TWICE A DAY Oral; Duration: 30 Active Baclofen 20 MG TAKE 1 TABLET BY FOSTER TH EVERY 8 HOURS NEEDED Oral; Duration: 30 Active Gabapentin 600 MG TAKE 1 TABLET BY FOSTER TH EVERY 8 HOURS Oral; Duration: 30 Active Butrans 10 MCG/HR (Schedule III Drug) APPLY 1 PATCH TRANSDERMALLY EVERY 7 DAYS Transdermal; Duration: 30 Active Social History Tobacco Use: Social History Observation Description Date Details (start date - stop date) Never Smoker NA - NA SMOKING Question Answer Notes STATUS: nonsmoker Problems Problem Type SNOMED Code ICD Code Onset Dates Problem Status W/U Status Risk Notes Problem Tarsal tunnel syndrome (48954510) Tarsal tunnel syndrome, left lower limb (G57.52) Active confirmed Problem Left side sciatica (0937049444388 04) Sciatica, left side (M54.32) Active confirmed Problem Lumbar radicular pain (2232013235) Lumbar radicular pain (M54.16) Active confirmed Problem Foot-drop (3572692) Foot drop, left (M21.372) Active confirmed Problem Foot pain (48746059) Foot pain (M79.673) Active confirmed Plan Of Treatment Pending Test Test Name Order Date Electroencephelography (EEG) 02/12/2013 EMG/NCV LEGS 06/06/2017 Insurance Providers Payer Name Payer Address Payer Phone Subscriber Number Group Number Insured Name Patient Relationship to Insured Coverage Start Date Coverage End Date [employer] PPO [address] [place], [place] [phone] [id number] [place] LOPEZ Spouse - patient is the spouse of the insured 3 Medical (General) History Medical History History ICD Code Rheumatoid arthritis Hypertension Acid reflux Headache Type 2 diabetes Transient alteration of awareness Transient alteration of awareness Surgical History Surgery Date(Month/Year) Back surgery/ L5 2004
--- OUTSIDE RECORDS SUMMARY | 2024-12-06 16:46 | XMS_ITS | Clinical Summary ---
Author Organization [facility] Address [address] [place] [address] Care Team Providers Care Visual Educator Name Role Phone Unavailable Primary Care Provider Unavailabl e Allergies No known active allergies Medications oxyCODONE-aceta minophen (PERCOCET) 7.5-325 mg Tablet Take 1 Tablet by mouth every 8 hours as needed. 5 Active amLODIPine (NORVASC) 10 mg tablet Take 1 Tablet by mouth daily. 5 Active ARIPiprazole (ABILIFY) 5 mg tablet 1 tab(s) orally once a day for 30 day(s) Active baclofen (LIORESAL) 20 mg tablet 1 tab(s) orally 3 times a day for 30 day(s) Active benztropine (COGENTIN) 1 mg tablet Take 1 Tablet by mouth daily. 5 Active celecoxib (CeleBREX) 200 mg capsule 1 cap(s) orally once a day for 30 day(s) Active cetirizine (ZyrTEC) 10 mg tablet 1 tab(s) orally once a day Active diclofenac sodium (VOLTAREN) 1 % gel APPLY 4G TO AFFECTED AREAS 4 TIMES DAILY SINGLE KNEE, ANKLE, FOR FOOT, SOLE/TOES/TOP OF FOOT 5 Active glipiZIDE (GLUCOTROL XL) 5 mg Extended Release 24 hour tablet Take 1 Tablet by mouth daily. 5 Active losartan (COZAAR) 50 mg tablet 1/2 tab(s) orally once a day Active metFORMIN (GLUCOPHAGE) 500 mg tablet Take 500-1,000 mg by mouth 2 times daily with meals. Active multivit,calc,m fz-MD-T6-lycop (One-A-Day Men's Complete) 240 mcg-30 mcg- 300 mcg Tablet 1 tab(s) orally once a day for 30 day(s) Active naloxone (Narcan) 4 mg/spray [place], Non-Aerosol as directed intranasally once 3 Active omeprazole (PriLOSEC) 40 mg Capsule, Delayed Release(E.C.) 1 cap(s) orally once a day for 30 day(s) Active pregabalin (LYRICA) 75 mg Capsule Take 75 mg by mouth 2 times daily. Active rosuvastatin (CRESTOR) 40 mg tablet Take 1 Tablet by mouth daily. 5 Active sennosides-docu sate sodium (SENNA-S) 8.6-50 mg tablet 1-2 tab(s) orally as directed Active traZODone (DESYREL) 150 mg tablet Take 150 mg by mouth daily at bedtime. 5 Active fluticasone propionate (FLONASE) 50 mcg/spray [place], Suspension nasal inhaler Administer 2 Sprays in each nostril daily. Active oxyCODONE-aceta minophen (PERCOCET) 7.5-325 mg TabletIndicatio ns:Battery end of life of spinal cord stimulator Take 1 Tablet by mouth every 6 hours as needed for Pain, Moderate. Max Daily Amount: 4 Tablets 21 Tablet 5 Active Active Problems Problem Noted Date Diagnosed Date Preoperative general physical examination 2024 Battery end of life of spinal cord stimulator Dyslipidemia 07/17/2024 CHASTITY (generalized anxiety disorder) 07/17/2024 Depression 07/17/2024 Type 2 diabetes mellitus wit hout complication, without long-term current use of insulin 07/17/2024 GERD (gastroesophageal reflux disease) Allergic rhinitis 07/17/2024 Severe obesity (BMI 35.0-39.9) with comorbidity 07/17/2024 ANAMARIA (obstructive sleep apnea) 07/17/2024 Extrapyramidal and movement disorder 07/17/2024 Anemia 07/17/2024 Essential hypertension 07/03/2024 Encounters Date Type Department Care Team Description 11/26/2024 External Device Data [facility] ABSTRACTION Provider, Abstract 10/29/2024 External Device Data [facility] Provider, Abstract 09/25/2024 External Device Data [facility] Provider, Abstract 09/25/2024 External Device Data [facility] Provider, Abstract 09/24/2024 External Device Data [facility]STRA[facility] Provider, Abstract from Last 3 Months Immunizations Immunization Administration Dates Next Due Hepatitis B Vaccine Adult IM Patient Supplied ,06/09/2022 Family History Medical History Relation Name Comments Heart Attack Father passed from [place] Heart Disease Father Heart Attack Maternal Grandfather passed from [place] age 70 Heart Disease Maternal Grandfather Heart Attack Paternal Grandfather passed from [place] at 75 Heart Disease Paternal Grandfather Relation Name Status Comments Father (Age 68) Maternal Grandfather (Age 70) Paternal Grandfather (Age 75) Social History Tobacco Use Types Packs/Day Years Used Date Smoking Tobacco: Never Smokeless Tobacco: Never Tobacco Cessation:Counseling Given: Not Answered Alcohol Use Standard Drinks/Week Comments Not Currently 0 (1 standard drink = 0.6 oz pur e alcohol) Feeling Safe Answer Date Recorded Are you in a relationship wi th someone who hurts you emotionally and/or physically? No 08/01/2024 Sex and Gender Information Value Date Recorded Sex Assigned at Not on file Legal Sex Male 1:46 PM CDT Gender Identity Not on file Sexual Orientation Not on file Last Filed Vital Signs Vital Sign Reading Time Taken Comments Blood Pressure 130/86 08/23/2024 11:18 AM CDT Pulse 84 08/23/2024 11:18 AM CDT Temperature 36.4 C (97.5 F) 08/23/2024 11:18 AM CDT Respiratory Rate 16 08/01/2024 9:15 AM CDT Oxygen Saturation 97% 08/23/2024 11:18 AM CDT Inhaled Oxygen Concentration - - Weight 110.2 kg (243 lb) 08/23/2024 11:18 AM CDT Height 172.7 cm (5' 8 ) 08/23/2024 11:18 AM CDT Body Mass Index 36.95 08/23/2024 11:18 AM CDT Plan of Treatment Health Maintenance Due Date Last Done Comments DIABETES ANNUAL FOOT EXAM 11/30/1985 DIABETES ANNUAL RETINAL EXAM 11/30/1985 DIABETES MICROALBUMIN ANNUAL SCREEN 11/30/1985 LDL CHOLESTEROL ANNUAL 11/30/1985 DTAP/TDAP/TD VACCINES (1 - Tdap) 11/30/1986 COLORECTAL SCREENING 11/30/2012 Colorectal Cancer Screening 11/30/2012 FIT-DNA Q 3 years 11/30/2012 FIT/FOBT Q 1 year 11/30/2012 Flex Sig/CT Colonography Q 5 years 11/30/2012 ZOSTER VACCINE (1 of 2) 11/30/2017 HEPATITIS B VACCINES (3 of 3 - 19+ 3-dose series) 12/10/2022 08/10/2022, 06/09/2022 INFLUENZA VACCINE (#1) 2024 DIABETES HBA1C Q 6 MONTHS 01/17/2025 07/17/2024 Medical Devices Implanted Type Area Drafter Construction Device Identifier Shelf Expiration Date Model / Serial / Lot Implantable Pulse Generator Implanted:Qty: 1 on 08/01/2024 by Vince Arita MD at [facility] N/A: Back 04/09/2025 [id number] / / [id number] Procedures Procedure Name Priority Date/Time Associated Diagnosis Comments HEMOGLOBIN A1C Routine 07/17/2024 1:24 PM CDT from Last 3 Months or Most Recently Relevant to Health Maintenance Results * (ABNORMAL) HEMOGLOBIN A1C (07/17/2024 1:24 PM CDT) HEMOGLOBIN A1C 7.4(H) <=5.6 % 07/17/2024 1:48 PM CDT [facility] EST. AVG GLUCOSE, A1C 166 mg/dL 07/17/2024 1:48 PM CDT [facility] Blood Venipuncture / Unknown 07/17/2024 1:24 PM CDT 07/17/2024 1:28 PM CDT Narrative [facility] - 07/17/2024 1:48 PM CDT HGB A1C INTERPRETATION NORMAL: <5.7% PRE-DIABETES: 5.7 - 6.4% DIABETES: 6.5% OR GREATER us Troy Garcia MD CHEMISTRY ORDERABLES Final Resu lt [facility] CLIA #[id number] [place] [address] from Last 3 Months or Most Recently Relevant to Health Maintenance Insurance
--- OUTSIDE RECORDS SUMMARY | 2024-12-06 16:46 | XMS_ITS | Patient Health Record ---
Author Organization [facility] Address [address] [place] [address] Care Team Providers Care Sack Maker Name Role Phone Ivy Le Floch Depollution Primary Care Pro vider [phone] Keo ramos Unavailable Unavaila ble Reason For Referral No Information Plan Of Treatment No Information Insurance Providers Payer Name Payer Address Payer Phone Subscriber Number Group Number Insured Name Patient Relationship to Insured Coverage Start Date Coverage End Date [facility] [address] [place] [address] [phone] [id number] [place] Self - patient is the insured [facility] [id number] [place] [address] [place] Self - patient is the insured
--- NOTE | 2024-12-06 16:50 | W.ED.EXTPRO ---
Documented by User: KALPANA Villanueva 12/06/24 17:46 HPI - Extremity Problem General: Chief complaint: Skin/Abscess/Foreign Body Stated complaint: lt foot pain (sent by [facility]) Time Seen by Provider: 12/06/24 16:41 Source: patient Mode of arrival: ambulatory Limitations: no limitations History of Present Illness: Patient is a nice 59-year-old male presents to ED today for evaluation of an infected left toe. He states he had a callus removed by his community health outreach worker Dr. Ferraro on 11/20. He feels like he just noticed the toe becoming red yesterday. He reportedly contacted Dr. Ferraro's office who recommended coming to the emergency department. He is not running fevers/no systemic complaints. Patient is tachycardic upon arrival at 115. He is a diabetic-states sugars run 140s-200s. Last A1c was reportedly 7.1%. MD Complaint: extremity pain and extremity swelling Onset (ago): day(s) Location: left and lower extremity (toe) Radiation: none Relieving factors: nothing Exacerbating factors: nothing Associated symptoms: Reports no associated symptoms; Deny fever(s) Related Data Home Medications ?Medication ?Instructions ?Recorded ?Confirmed fluticasone propionate 50 1 spray intranasal DAILY 01/11/22 11/29/24 mcg/actuation nasal spray,suspension sennosides 8.6 mg-docusate sodium 2 tab-cap PO BID PRN Constipation 05/21/23 11/29/24 50 mg tablet buprenorphine 2 mg-naloxone 0.5 mg 1 tab sublingual DAILY 11/12/24 11/29/24 sublingual tablet Previous Rx's ?Medication ?Instructions ?Recorded blood sugar diagnostic (Blood #50 ea 01/11/22 Glucose Test strips) lancets (Fingerstix Lancets) #100 ea 01/11/22 blood-glucose meter #1 ea 01/14/22 Diabetic Shoes with 3 sets of #1 ea 05/02/22 inserts cetirizine 10 mg capsule (All Day 10 mg PO DAILY PRN allergy 07/22/22 Allergy (cetirizine)) symptoms #90 caps Diabetic Shoes #1 ea 05/08/24 diclofenac sodium 1 % topical gel 4 g topical QID #100 grams 05/23/24 (Voltaren Arthritis Pain) glipizide 5 mg tablet, extended 5 mg PO DAILY #90 tabs 05/31/24 release 24 hr aripiprazole 5 mg tablet 5 mg PO DAILY #90 tabs 06/27/24 benztropine 1 mg tablet 1 mg PO DAILY #90 tabs 06/27/24 trazodone 150 mg tablet 150 mg PO .HS #90 tabs 06/27/24 ASO #1 ea 07/10/24 amlodipine 10 mg tablet 10 mg PO .COMPLEX #90 tabs 09/23/24 baclofen 20 mg tablet See Rx Instructions .Route 09/30/24 .COMPLEX #270 tabs celecoxib 200 mg capsule See Rx Instructions .Route 11/04/24 .COMPLEX #90 caps losartan 50 mg tablet 50 mg PO DAILY #90 tabs 11/04/24 metformin 500 mg tablet See Rx Instructions .Route 11/04/24 .COMPLEX #270 tabs omeprazole 40 mg capsule,delayed See Rx Instructions .Route 11/04/24 release .COMPLEX #90 caps rosuvastatin 40 mg tablet See Rx Instructions .Route 11/04/24 .COMPLEX #90 tabs pregabalin 75 mg capsule 75 mg PO BID #60 caps 11/26/24 Allergies Allergy/AdvReac Type Severity Reaction Status Date / Time No Known Allergies Allergy Verified 11/29/24 10:06 Review of Systems Const: Denies: fever(s), chills, body aches, fatigue or malaise Musc: Reports: extremity pain and extremity swelling Skin/Breast: Reports: erythema (L 2nd toe) Neuro: Denies: difficulty walking PFSH ED PFSH: Medical History Psychiatric care Borderline hypercholesterolemia Diabetic neuropathy Chronic low back pain Diabetes Hypertension Surgical History History of Esther fundoplication History of spinal surgery x2 spinal stimulators placed History of back surgery Family History Father CAD (coronary artery disease) Mother Cancer breast Grandmother Diabetes Denies family history of Clotting disorder Dementia Hyperlipidemia Psychiatric illness Chronic kidney disease (CKD) Anesthesia complication Bleeding disorder Lung disease Hypertension Stroke Social History Smoking and tobacco/nicotine status: never used tobacco/nicotine Alcohol intake: never Substance/Drug Use: never Caregiver/support person: No Lives independently: Yes Household members: spouse Marital status: Number of children: 0 Current occupational status: disabled Current gender identity: Male Physical Exam Const: COMMON NORMALS: no acute distress, patient oriented x3, no limitations, alert and well nourished GENERAL APPEARANCE: cooperative NUTRITIONAL APPEARANCE: obese (BMI 40.3) ORIENTATION/CONSCIOUSNESS: Yes awake, Yes oriented to person, Yes oriented to place and Yes oriented to time Resp: COMMON NORMALS: normal respiratory effort and clear to auscultation bilaterally AUSCULTATION: clear to auscultation bilaterally Cardio: COMMON NORMALS: regular rhythm RATE: tachycardic RHYTHM: regular rhythm Extremity: NARRATIVE EXTREMITY EXAM: dystrophic toenails; diffuse erythema/warmth/edema affecting L second toe with avulsed nail and distal skin de-gloving and ulceration; erythema starting to spread onto proximal dorsum of foot; no odor or significant discharge noted GENERAL: Yes normal exam except as noted LEFT LOWER EXTREMITY: Yes foot & digits Neuro: COMMON NORMALS: patient oriented x3 SENSORIUM/ORIENTATION: Yes alert, Yes oriented to person, Yes oriented to place and Yes oriented to time Skin: NARRATIVE SKIN EXAM: see above Course Consultations: Consultation #1: Dr. Ferraro-recommending admission to hospitalist for IV abx, he will consult, plan will be for MRI of foot and surgery on Monday Consultation #2: Dr. Lawrence-accepts hospitalization Vital Signs: Vital signs: Vital Signs Temperature 98.7 F 12/06/24 16:46 Pulse Rate 115 H 12/06/24 16:46 Respiratory Rate 16 12/06/24 16:46 Pulse Oximetry 98 12/06/24 16:46 Oxygen Delivery Me thod Room Air 12/06/24 16:46 MDM - Extremity (Nontraumatic) Medical Decision Making Patient is a 59-year-old diabetic male here for a left toe infection. Images of the toe have been sent to Dr. Ferraro, patient's community health outreach worker, who is recommending admit to hospitalist for IV antibiotics and plan will be for toe amputation on Monday. Did recommend MRI. Started patient on Vancomycin/Zosyn. Patient is tachycardic but he has a normal white count. ESR is normal. Remainder of labs are pending at this time. I have spoken to Dr. Lawrence who will admit patient. Medical Records I reviewed the patient's medical records. Lab Data I reviewed the patient's lab results. 12/06/24 17:00 12/06/24 17:00 Laboratory Results WBC 6.02 10^3/uL (3.29-11.43) 12/06/24 17:00 RBC 5.00 10^6/uL (3.85-5.65) 12/06/24 17:00 Hgb 13.80 g/dL (11.27-16.99) 12/06/24 17:00 Hct 41.7 % (37-53) 12/06/24 17:00 MCV 83.4 fl (82-101) 12/06/24 17:00 MCH 27.6 pg (27-33) 12/06/24 17:00 MCHC 33.1 g/dL (30-55) 12/06/24 17:00 RDW 13.1 % (12.1-15.1) 12/06/24 17:00 Plt Count 245 10^3/cmm (157-399) 12/06/24 17:00 MPV 8.8 fL (7.4-10.4) 12/06/24 17:00 Neut % (Auto) 69.5 % 12/06/24 17:00 Lymph % (Auto) 19.9 % 12/06/24 17:00 [place] % (Auto) 7.1 % 12/06/24 17:00 Eos % (Auto) 2.3 % 12/06/24 17:00 Baso % (Auto) 1.0 % 12/06/24 17:00 Neut # (Auto) 4.18 10^3/uL (1.8-7.7) 12/06/24 17:00 Lymph # (Auto) 1.2 10^3/uL (0.8-4.8) 12/06/24 17:00 [place] # (Auto) 0.4 10^3/uL (0.2-0.9) 12/06/24 17:00 Eos # (Auto) 0.1 10^3/uL (0.0-0.8) 12/06/24 17:00 Baso # (Auto) 0.1 10^3/uL (0.0-0.1) 12/06/24 17:00 Nucleated RBC % (auto) 0 % 12/06/24 17:00 Nucleated RBCs # 0.0 /100WBC 12/06/24 17:00 ESR 4 mm/hr (0-10) 12/06/24 17:00 Sodium 141 mmol/L (136-145) 12/06/24 17:00 Potassium 3.5 mmol/L (3.5-5.1) 12/06/24 17:00 Chloride 104 mmol/L (98-107) 12/06/24 17:00 Carbon Dioxide 25 mmol/L (22-29) 12/06/24 17:00 Anion Gap 15.5 (5-19) 12/06/24 17:00 BUN 9 mg/dL (6-20) 12/06/24 17:00 Creatinine 0.6 mg/dL (0.7-1.2) L 12/06/24 17:00 GFR Calculation 138.9 mL/min (90-130) H 12/06/24 17:00 Glucose 181 mg/dL (65-115) H 12/06/24 17:00 Calculated Osmolality 295 mOsm/kg (285-295) 12/06/24 17:00 Lactic Acid 1.4 mmol/L (0.5-2.2) 12/06/24 17:00 Calcium 9.4 mg/dL (8.5-10.5) 12/06/24 17:00 Total Bilirubin 0.5 mg/dL (0.15-1.2) 12/06/24 17:00 AST 15 U/L (0-40) 12/06/24 17:00 ALT 13 U/L (0-41) 12/06/24 17:00 Alkaline Phosphatase 96 U/L (40-130) 12/06/24 17:00 C-Reactive Protein 3.0 mg/L (0.0-4.9) 12/06/24 17:00 Total Protein 7.0 g/dL (6.6-8.7) 12/06/24 17:00 Albumin 4.2 g/dL (3.5-5.2) 12/06/24 17:00 Globulin 2.8 g/dL (1.3-4.6) 12/06/24 17:00 XR interpretation done by ED provider, pending radiology final review Discharge Plan Discharge Patient Disposition: Admitted As Inpatient Clinical Impression: Toe infection, Diabetic infection of left foot Condition: Stable Coding Level of Care Code ED Credit Card Control Clerk for Rommel Fwanuradha Documented by User: Ernestine Valdez MD 12/06/24 17:48 HPI - Extremity Problem General: Chief complaint: Skin/Abscess/Foreign Body Stated complaint: lt foot pain (sent by [facility]) Time Seen by Provider: 12/06/24 16:41 Related Data Home Medications ?Medication ?Instructions ?Recorded ?Confirmed fluticasone propionate 50 1 spray intranasal DAILY 01/11/22 11/29/24 mcg/actuation nasal spray,suspension sennosides 8.6 mg-docusate sodium 2 tab-cap PO BID PRN Constipation 05/21/23 11/29/24 50 mg tablet buprenorphine 2 mg-naloxone 0.5 mg 1 tab sublingual DAILY 11/12/24 11/29/24 sublingual tablet Previous Rx's ?Medication ?Instructions ?Recorded blood sugar diagnostic (Blood #50 ea 01/11/22 Glucose Test strips) lancets (Fingerstix Lancets) #100 ea 01/11/22 blood-glucose meter #1 ea 01/14/22 Diabetic Shoes with 3 sets of #1 ea 05/02/22 inserts cetirizine 10 mg capsule (All Day 10 mg PO DAILY PRN allergy 07/22/22 Allergy (cetirizine)) symptoms #90 caps Diabetic Shoes #1 ea 05/08/24 diclofenac sodium 1 % topical gel 4 g topical QID #100 grams 05/23/24 (Voltaren Arthritis Pain) glipizide 5 mg tablet, extended 5 mg PO DAILY #90 tabs 05/31/24 release 24 hr aripiprazole 5 mg tablet 5 mg PO DAILY #90 tabs 06/27/24 benztropine 1 mg tablet 1 mg PO DAILY #90 tabs 06/27/24 trazodone 150 mg tablet 150 mg PO .HS #90 tabs 06/27/24 ASO #1 ea 07/10/24 amlodipine 10 mg tablet 10 mg PO .COMPLEX #90 tabs 09/23/24 baclofen 20 mg tablet See Rx Instructions .Route 09/30/24 .COMPLEX #270 tabs celecoxib 200 mg capsule See Rx Instructions .Route 11/04/24 .COMPLEX #90 caps losartan 50 mg tablet 50 mg PO DAILY #90 tabs 11/04/24 metformin 500 mg tablet See Rx Instructions .Route 11/04/24 .COMPLEX #270 tabs omeprazole 40 mg capsule,delayed See Rx Instructions .Route 11/04/24 release .COMPLEX #90 caps rosuvastatin 40 mg tablet See Rx Instructions .Route 11/04/24 .COMPLEX #90 tabs pregabalin 75 mg capsule 75 mg PO BID #60 caps 11/26/24 Allergies Allergy/AdvReac Type Severity Reaction Status Date / Time No Known Allergies Allergy Verified 11/29/24 10:06 [facility] ED PFSH: Medical History Psychiatric care Borderline hypercholesterolemia Diabetic neuropathy Chronic low back pain Diabetes Hypertension Surgical History History of Esther fundoplication History of spinal surgery x2 spinal stimulators placed History of back surgery Family History Father CAD (coronary artery disease) Mother Cancer breast Grandmother Diabetes Denies family history of Clotting disorder Dementia Hyperlipidemia Psychiatric illness Chronic kidney disease (CKD) Anesthesia complication Bleeding disorder Lung disease Hypertension Stroke Social History Smoking and tobacco/nicotine status: never used tobacco/nicotine Alcohol intake: never Substance/Drug Use: never Caregiver/support person: No Lives independently: Yes Household members: spouse Marital status: Number of children: 0 Current occupational status: disabled Current gender identity: Male Course Vital Signs: Vital signs: Vital Signs Temperature 98.7 F 12/06/24 16:46 Pulse Rate 115 H 12/06/24 16:46 Respiratory Rate 16 12/06/24 16:46 Pulse Oximetry 98 12/06/24 16:46 Oxygen Delivery Me thod Room Air 12/06/24 16:46 MDM - Extremity (Nontraumatic) Medical Decision Making Patient is a 59-year-old diabetic male here for a left toe infection. Images of the toe have been sent to Dr. Ferraro, patient's community health outreach worker, who is recommending admit to hospitalist for IV antibiotics and plan will be for toe amputation on Monday morning. Did recommend MRI. Started patient on Vancomycin/Zosyn. Patient is tachycardic but he has a normal white count. ESR is normal. Remainder of labs are pending at this time. I have spoken to Dr. Lawrence who will admit patient. The case was discussed with: the nurse practitioner. Evaluation and management service: I agree with the evaluation and management decisions made in this patient's care. Results interpretation: I agree with the study interpretation in this patient's care, I agree with the documentation of the study interpretation. I have examined the patient personally. Quite infected looking toe on the left foot. Some drainage. No increased work of breathing. No altered mental status. Lab Data 12/06/24 17:00 12/06/24 17:00 Laboratory Results WBC 6.02 10^3/uL (3.29-11.43) 12/06/24 17:00 RBC 5.00 10^6/uL (3.85-5.65) 12/06/24 17:00 Hgb 13.80 g/dL (11.27-16.99) 12/06/24 17:00 Hct 41.7 % (37-53) 12/06/24 17:00 MCV 83.4 fl (82-101) 12/06/24 17:00 MCH 27.6 pg (27-33) 12/06/24 17:00 MCHC 33.1 g/dL (30-55) 12/06/24 17:00 RDW 13.1 % (12.1-15.1) 12/06/24 17:00 Plt Count 245 10^3/cmm (157-399) 12/06/24 17:00 MPV 8.8 fL (7.4-10.4) 12/06/24 17:00 Neut % (Auto) 69.5 % 12/06/24 17:00 Lymph % (Auto) 19.9 % 12/06/24 17:00 [place] % (Auto) 7.1 % 12/06/24 17:00 Eos % (Auto) 2.3 % 12/06/24 17:00 Baso % (Auto) 1.0 % 12/06/24 17:00 Neut # (Auto) 4.18 10^3/uL (1.8-7.7) 12/06/24 17:00 Lymph # (Auto) 1.2 10^3/uL (0.8-4.8) 12/06/24 17:00 [place] # (Auto) 0.4 10^3/uL (0.2-0.9) 12/06/24 17:00 Eos # (Auto) 0.1 10^3/uL (0.0-0.8) 12/06/24 17:00 Baso # (Auto) 0.1 10^3/uL (0.0-0.1) 12/06/24 17:00 Nucleated RBC % (auto) 0 % 12/06/24 17:00 Nucleated RBCs # 0.0 /100WBC 12/06/24 17:00 ESR 4 mm/hr (0-10) 12/06/24 17:00 Sodium 141 mmol/L (136-145) 12/06/24 17:00 Potassium 3.5 mmol/L (3.5-5.1) 12/06/24 17:00 Chloride 104 mmol/L (98-107) 12/06/24 17:00 Carbon Dioxide 25 mmol/L (22-29) 12/06/24 17:00 Anion Gap 15.5 (5-19) 12/06/24 17:00 BUN 9 mg/dL (6-20) 12/06/24 17:00 Creatinine 0.6 mg/dL (0.7-1.2) L 12/06/24 17:00 GFR Calculation 138.9 mL/min (90-130) H 12/06/24 17:00 Glucose 181 mg/dL (65-115) H 12/06/24 17:00 Calculated Osmolality 295 mOsm/kg (285-295) 12/06/24 17:00 Lactic Acid 1.4 mmol/L (0.5-2.2) 12/06/24 17:00 Calcium 9.4 mg/dL (8.5-10.5) 12/06/24 17:00 Total Bilirubin 0.5 mg/dL (0.15-1.2) 12/06/24 17:00 AST 15 U/L (0-40) 12/06/24 17:00 ALT 13 U/L (0-41) 12/06/24 17:00 Alkaline Phosphatase 96 U/L (40-130) 12/06/24 17:00 C-Reactive Protein 3.0 mg/L (0.0-4.9) 12/06/24 17:00 Total Protein 7.0 g/dL (6.6-8.7) 12/06/24 17:00 Albumin 4.2 g/dL (3.5-5.2) 12/06/24 17:00 Globulin 2.8 g/dL (1.3-4.6) 12/06/24 17:00 Discharge Plan Discharge Patient Disposition: Admitted As Inpatient Clinical Impression: Toe infection, Diabetic infection of left foot Condition: Stable Coding Level of Care Code ED Credit Card Control Clerk for Rommel Lakhani
--- NOTE | 2024-12-06 16:56 | XRR_ITS ---
PROCEDURE INFORMATION: Exam: XR Left Toe(s) Exam date and time: 12/06/2024 5:26 PM Age: 59 years old Clinical indication: Pain; Toes; Left; Additional info: Pain/redness to lt 2nd toe; Open ulcer to distal lt 2nd toe TECHNIQUE: Imaging protocol: Radiologic exam of the left toes. Views: Minimum 2 views. COMPARISON: CR XR foot LT min 3V* [id number] 09/11/2024 8:36 AM FINDINGS: Bones/joints: No cortical irregularity or medullary lucency to suggest osteomyelitis. Soft tissues: Soft tissue swelling along the dorsal aspect of the forefoot and soft tissue swelling at the distal aspect of the 2nd digit. XR/XR toe LT min 2V [id number] IMPRESSION: 1. Soft tissue swelling along the dorsal aspect of the forefoot and soft tissue swelling at the distal aspect of the 2nd digit. 2. No cortical irregularity or medullary lucency to suggest osteomyelitis.
[2024-12-06 17:16] LABS: Hematocrit 41.7 % (37-53); Hemoglobin 13.80 g/dL (11.27-16.99); Mean Corpuscular HGB Conc 33.1 g/dL (30-55); Mean Corpuscular Hemoglobin 27.6 pg (27-33); Mean Corpuscular Volume 83.4 fl (82-101); Nucleated Red Blood Cells % 0 %; Platelet Count 245 10^3/cmm (157-399); Red Blood Count 5.00 10^6/uL (3.85-5.65); White Blood Count 6.02 10^3/uL (3.29-11.43)
[2024-12-06] MEDS: piperacillin-tazobactam 3.375 GM in sodium chloride 0.9% (plus) 50 ML IV ×2 (17:27→21:04)
[2024-12-06 17:37] LABS: Alanine Aminotransferase 13 U/L (0-41); Albumin Level 4.2 g/dL (3.5-5.2); Alkaline Phosphatase 96 U/L (40-130); Anion Gap 15.5 (5-19); Aspartate Amino Transferase 15 U/L (0-40); Blood Urea Nitrogen 9 mg/dL (6-20); Calcium 9.4 mg/dL (8.5-10.5); Carbon Dioxide 25 mmol/L (22-29); Chloride 104 mmol/L (98-107); Creatinine Clr Calc Pharmacy 171.2275; Globulin 2.8 g/dL (1.3-4.6); Glucose 181 mg/dL (65-115); Osmolality Calculated 295 mOsm/kg (285-295); Potassium 3.5 mmol/L (3.5-5.1); Sodium 141 mmol/L (136-145); Total Protein 7.0 g/dL (6.6-8.7)
[2024-12-06 17:38] LABS: Lactic Sepsis W/Reflex 1.4 mmol/L (0.5-2.2)
[2024-12-06 18:00] VITALS: BP 138/92; PULSE 90; O2SAT 98
--- NOTE | 2024-12-06 18:01 | PM.HP ---
Providers/Chief Complaint Admitting Physician: Rito Lawrence MD Primary Care Provider: Ananth Hills MD Chief Complaint: lt foot pain (sent by [facility]) History of Present Illness [place] is a 59 year old male with history of diabetes for 15 years and also hyperlipidemia. A1c was last 7.1 he states his blood sugars run 120-150 in the a.m. which is the only time he checks it patient states he has lost 10 to 15 pounds in last 1 year. His grandpa on both sides as well as his dad have had heart attacks but he is the only one that family has diabetes. Patient states his left second toe on 11/20/[address] Ferraro for routine diabetic care and nail care. He had a toe that bends down and the callus that abuts the floor was debrided off. He states this was healing well until this morning when he noted ulceration machine nail that disintegrated off and erythema. He states that 4 to 5 hours later it straight up the toe he called Dr. Ferraro and was sent to the emergency department. Cori spoke with Dr. Ferraro who recommends patient be admitted for MRI and IV antibiotics with anticipated surgery on Monday. Review of Systems Narrative: General No fevers chills he said weight loss 10 to 15 pounds in the last year Cardiovascular no chest pain palpitations or edema Respiratory no shortness of breath cough or wheezing GI no nausea vomiting diarrhea he has constipation and has bowel movement every 3 days takes DSS daily and Ex-Lax every 3 days. He has been doing that for a month. He states if he does not take Ex-Lax it takes a long time to have a bowel movement. no dysuria hematuria incontinence Neuro no seizures strokes limb weakness Malignancy history negative Hematologic no blood clots or lung clots Musculoskeletal patient states he had L4-5 fusion and also spinal stimulator for pain in the low back rating down to the legs. He is disabled from that Medications/Allergies Home Medications ?Medication ?Instructions ?Recorded ?Confirmed ?Last Taken ?Type blood sugar diagnostic (Blood #50 ea 01/11/22 11/29/24 05/21/23 08:00 Rx Glucose Test strips) fluticasone propionate 50 1 spray intranasal DAILY 01/11/22 11/29/24 05/21/23 08:00 History mcg/actuation nasal spray,suspension lancets (Fingerstix Lancets) #100 ea 01/11/22 11/29/24 05/21/23 08:00 Rx blood-glucose meter #1 ea 01/14/22 11/29/24 05/21/23 08:00 Rx Diabetic Shoes with 3 sets of #1 ea 05/02/22 11/29/24 05/21/23 08:00 Rx inserts cetirizine 10 mg capsule (All Day 10 mg PO DAILY PRN allergy 07/22/22 11/29/24 05/21/23 08:00 Rx Allergy (cetirizine)) symptoms #90 caps sennosides 8.6 mg-docusate sodium 2 tab-cap PO BID PRN Constipation 05/21/23 11/29/24 05/21/23 08:00 History 50 mg tablet Diabetic Shoes #1 ea 05/08/24 11/29/24 Unknown Rx diclofenac sodium 1 % topical gel 4 g topical QID #100 grams 05/23/24 11/29/24 Unknown Rx (Voltaren Arthritis Pain) glipizide 5 mg tablet, extended 5 mg PO DAILY #90 tabs 05/31/24 11/29/24 Unknown Rx release 24 hr aripiprazole 5 mg tablet 5 mg PO DAILY #90 tabs 06/27/24 11/29/24 Unknown Rx benztropine 1 mg tablet 1 mg PO DAILY #90 tabs 06/27/24 11/29/24 Unknown Rx trazodone 150 mg tablet 150 mg PO .HS #90 tabs 06/27/24 11/29/24 Unknown Rx ASO #1 ea 07/10/24 11/29/24 Unknown Rx amlodipine 10 mg tablet 10 mg PO .COMPLEX #90 tabs 09/23/24 11/29/24 Unknown Rx baclofen 20 mg tablet See Rx Instructions .Route 09/30/24 11/29/24 Unknown Rx .COMPLEX #270 tabs celecoxib 200 mg capsule See Rx Instructions .Route 11/04/24 11/29/24 Unknown Rx .COMPLEX #90 caps losartan 50 mg tablet 50 mg PO DAILY #90 tabs 11/04/24 11/29/24 Unknown Rx metformin 500 mg tablet See Rx Instructions .Route 11/04/24 11/29/24 Unknown Rx .COMPLEX #270 tabs omeprazole 40 mg capsule,delayed See Rx Instructions .Route 11/04/24 11/29/24 Unknown Rx release .COMPLEX #90 caps rosuvastatin 40 mg tablet See Rx Instructions .Route 11/04/24 11/29/24 Unknown Rx .COMPLEX #90 tabs buprenorphine 2 mg-naloxone 0.5 mg 1 tab sublingual DAILY 11/12/24 11/29/24 Unknown History sublingual tablet pregabalin 75 mg capsule 75 mg PO BID #60 caps 11/26/24 11/29/24 Unknown Rx Allergies Allergy/AdvReac Type Severity Reaction Status Date / Time No Known Allergies Allergy Verified 11/29/24 10:06 PFSH Acute PFSH: Medical History (Updated 12/06/24 @ 17:10 by KALPANA Villanueva) Psychiatric care Borderline hypercholesterolemia Diabetic neuropathy Chronic low back pain Diabetes Hypertension Surgical History History of Esther fundoplication History of spinal surgery x2 spinal stimulators placed History of back surgery Family History Father CAD (coronary artery disease) Mother Cancer breast Grandmother Diabetes Denies family history of Clotting disorder Dementia Hyperlipidemia Psychiatric illness Chronic kidney disease (CKD) Anesthesia complication Bleeding disorder Lung disease Hypertension Stroke Social History (Updated 12/06/24 @ 18:10 by Rito Lawrence MD) Smoking and tobacco/nicotine status: never used tobacco/nicotine Alcohol intake: former Year of sobriety/quit date alcohol: 1977 Former alcohol use details: Drink in high school Substance/Drug Use: never Additional social history: He wants full code as discussed today with Rito Lawrence MD on 12/06/2024. 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 Current gender identity: Male Vitals/I&O/Wt Last Vital Signs Temp 98.7 F 12/06/24 16:46 Pulse 115 H 12/06/24 16:46 Resp 16 12/06/24 16:46 Pulse Ox 98 12/06/24 16:46 O2 Del Method Room Air 12/06/24 16:46 Weight last 48 hrs Weight 120.202 kg Physical Exam Narrative: General well-developed well-nourished morbidly obese male in no acute cardiopulmonary distress CV regular rate and rhythm Lungs clear to auscultation bilaterally Abdomen positive bowel tones obese soft nontender Calves decreased hair both legs trace edema dorsal pedal pulse left foot 2+ posterior tibial also 2+ Gross sensation he is diminished to sensation and he thought I was touching his second toe when I was touching his third. The second toe which is inflamed when I was touching he states he could not tell and the left big toe he also did not notice as I was touching it. Extremity: LEFT LOWER EXTREMITY: Yes foot & digits (Left second toe inflamed ulcerated erythematous to the base see images) OTHER: Data 12/06/24 17:00 12/06/24 17:00 Micro: Microbiology 12/06/24 17:16 Blood Culture - Preliminary Blood SPECIMEN COLLECTED 12/06/24 17:00 Blood Culture - Preliminary Blood SPECIMEN COLLECTED A&P Assessment and plan 1. Diabetic infection of left foot: Left second toe is ulcerated and erythematous. Cannot exclude MRSA. Will cover for diabetic foot infection with Zosyn and vancomycin will obtain wound culture and Gram stain. Concur with MRI to look for osteomyelitis. This foot infection has not been present long so hopefully does not seeded in the bone. If osteomyelitis is seen then amputation would be most appropriate. If osteomyelitis is not present then I&D would be appropriate 2. Diabetes: Start 2000-calorie ADA diet and sliding scale insulin low scale 3. Chronic low back pain: Resume home meds 4. Diabetic neuropathy: As above PDMP PDMP Reviewed: Not Reviewed Attestations Medical Necessity Statement*: Patient will be admitted to hospital for IV antibiotics and require greater than 2 midnights in attempt to preserve the toe Coding Level of Care Code Acute Code for [facility] Fwd Diagnoses Diabetic infection of left foot E11.628; L08.9 Diabetes E11.9 Chronic low back pain M54.50; G89.29 Diabetic neuropathy E11.40 Time Spent (min) 70
[2024-12-06 18:19] VITALS: BP 138/92; PULSE 90; O2SAT 98
[2024-12-06 18:25] VITALS: BP 136/84; PULSE 85; RESP 16; TEMP 36.9; O2SAT 92
--- NOTE | 2024-12-06 19:44 | PHA.VACGOAL ---
Vancomycin Goal - Goal Vancomycin Goal:: 15-20 mg/L Vancomycin Indication:: Other (OSTEOMYELITIS) - Therapy Day of therpy:: Day []of [] . Actual body weight (kg): 265 lb - Data Labs: WBC 6.02 10^3/uL (3.29-11.43) 12/06/24 17:00 RBC 5.00 10^6/uL (3.85-5.65) 12/06/24 17:00 Hgb 13.80 g/dL (11.27-16.99) 12/06/24 17:00 Hct 41.7 % (37-53) 12/06/24 17:00 MCV 83.4 fl (82-101) 12/06/24 17:00 MCH 27.6 pg (27-33) 12/06/24 17:00 MCHC 33.1 g/dL (30-55) 12/06/24 17:00 RDW 13.1 % (12.1-15.1) 12/06/24 17:00 Sodium 141 mmol/L (136-145) 12/06/24 17:00 Potassium 3.5 mmol/L (3.5-5.1) 12/06/24 17:00 Chloride 104 mmol/L (98-107) 12/06/24 17:00 Carbon Dioxide 25 mmol/L (22-29) 12/06/24 17:00 Anion Gap 15.5 (5-19) 12/06/24 17:00 BUN 9 mg/dL (6-20) 12/06/24 17:00 Creatinine 0.6 mg/dL (0.7-1.2) L 12/06/24 17:00 GFR Calculation 138.9 mL/min (90-130) H 12/06/24 17:00 Last dialysis session:: N/A Treatment plan:: new consult Regimen:: ORDERED 2000 MG LOADING DOSE BASED ON DIAGNOSIS AND WEIGHT. ORDERED 1500 MG Q8H MAINTENANCE DOSE TO START 12/07/24 AT 0300 BASED ON RENAL FUNCTION AND WEIGHT. PATIENT >40 KG/M2 BMI, USED ADJUSTED BW TO CALCULATE CRCL AT 171.2 ML/MIN. WILL CONTINUE TO MONITOR DAILY AND PLAN TO OBTAIN TROUGH PRIOR TO 5TH DOSE.
[2024-12-06 19:46] VITALS: BP 165/76; PULSE 72; RESP 16; TEMP 36.9; O2SAT 94
[2024-12-07] VITALS (9 sets, daily range): BP systolic 115–149; BP diastolic 67–99; PULSE 60–78; RESP 16–19; TEMP 36.4–36.7; O2SAT 93–97
[2024-12-07] MEDS: morphine 4 mg/mL SDV 1 mL IVP ×2 (01:21→20:49)
[2024-12-07] MEDS: piperacillin-tazobactam 3.375 GM in sodium chloride 0.9% (plus) 50 ML IV ×3 (03:09→20:59)
--- NOTE | 2024-12-07 10:34 | PC.NURSE ---
Patient went to MRI and still not in room. Medications are late due to patient not in room
[2024-12-07] MEDS: gadobenate dimeglumine 20 mL vial IV (10:50)
--- NOTE | 2024-12-07 11:00 | MRR_ITS ---
PROCEDURE INFORMATION: Exam: MR Left Lower Extremity Without and With Contrast; Forefoot Exam date and time: 12/07/2024 9:38 AM Age: 59 years old Clinical indication: Edema and swelling, leg or foot; Yes, it is localized; Additional info: Left second toe infection possible osteomyelitis TECHNIQUE: Imaging protocol: MR of the left foot without and with contrast. Exam focused on the forefoot. Contrast material: MULTIHANCE; Contrast volume: 20 ml; Contrast route: INTRAVENOUS (IV); COMPARISON: CR (LOW EXM, ) 12/06/2024 5:26 PM FINDINGS: There is ulceration involving the 2nd toe. There is regional edema within the subcutaneous tissues as well as skin thickening and postcontrast soft tissue enhancement. No loculated fluid collection/abscess is appreciated. There is diffuse edema involving the subcutaneous tissues of the midfoot and forefoot without definite enhancement likely representing bland edema. There is abnormal T1 and T2 signal with abnormal enhancement involving the distal phalanx of the 2nd digit compatible with osteomyelitis. There is abnormal signal involving the length of the 1st metatarsal with relative sparing involving the 1st metatarsal head. There is abnormal signal involving the proximal half of the 2nd metatarsal as well as the cuneiforms and navicular. There is postcontrast bony enhancement as well as surrounding soft tissue enhancement. Given lack of regional ulcer, this likely represents neuropathic type change. Osteomyelitis can not be excluded. Subchondral cysts noted involving the distal cuboid laterally. MR/MR foot LT wo/w con [id number] IMPRESSION: 1. Ulcer defect involving the 2nd toe with regional cellulitis. 2. Osteomyelitis involving the distal phalanx of the 2nd toe. 3. Abnormal signal involving the 1st and 2nd metatarsals, cuneiforms and navicular. As mentioned above, this most likely represents neuropathic type change. Osteomyelitis can not be excluded.
[2024-12-07] MEDS: buprenorphine-naloxon 2-0.5MG FILM 1 EACH SUBLINGUAL (11:11)
[2024-12-07] MEDS: polyethylene glycol 3350 Pkt 17 gm PO (11:12)
[2024-12-07] MEDS: diclofenac 1% Topical Gel 100 gm 1 APPLIC TOPICAL ×4 (11:41→17:50)
[2024-12-07] MEDS: fluticasone nasal spray 16gm Btl 1 SPRAY INTRANASAL (11:41)
--- NOTE | 2024-12-07 11:56 | PM.CONSULT ---
Providers/Reason For Consult Consulting Physician/Specialty*: Savanna Hollins.P.M./podiatry Reason for Consult*: Left foot second toe ulceration underlying osteomyelitis Attending Physician: Rito Lawrence MD Primary Care Provider: Ananth Hills MD History of Present Illness History of Present Illness [place] is a 59 year old male history of type 2 diabetes known to podiatry last seen in podiatry clinic on 11/20/2024. Patient was noted to have a small preulcerative lesion to distal aspect of left foot second toe. Callus was pared down and discussion was had with patient about flexor tenotomy to prevent progression of wound and infection. However, since previous visit second toe had become worse. Erythematous and edematous. Patient was directed to the emergency department for evaluation, IV antibiotics admission and plan for surgery. Review of Systems General: Reports: 10 or more systems reviewed and unremarkable except in HPI and below Const: Denies: fever(s), chills, body aches or change in appetite Eyes: Denies: change in vision or blurry vision Card: Denies: chest pain, palpitations or irregular heart rhythm Resp: Denies: dyspnea GI: Denies: abdominal pain, nausea, vomiting or diarrhea Musc: Reports: joint stiffness Skin/Breast: Reports: non-healing lesions and lesions Neuro: Reports: numbness in extremities Medications/Allergies Home Medications ?Medication ?Instructions ?Recorded ?Confirmed ?Last Taken ?Type blood sugar diagnostic (Blood #50 ea 01/11/22 12/07/24 05/21/23 08:00 Rx Glucose Test strips) fluticasone propionate 50 1 spray intranasal DAILY 01/11/22 12/07/24 12/06/24 History mcg/actuation nasal spray,suspension lancets (Fingerstix Lancets) #100 ea 01/11/22 12/07/24 05/21/23 08:00 Rx blood-glucose meter #1 ea 01/14/22 12/07/24 05/21/23 08:00 Rx Diabetic Shoes with 3 sets of #1 ea 05/02/22 12/07/24 05/21/23 08:00 Rx inserts cetirizine 10 mg capsule (All Day 10 mg PO DAILY PRN allergy 07/22/22 12/07/24 12/06/24 Rx Allergy (cetirizine)) symptoms #90 caps sennosides 8.6 mg-docusate sodium 2 tab-cap PO BID PRN Constipation 05/21/23 12/07/24 05/21/23 08:00 History 50 mg tablet Diabetic Shoes #1 ea 05/08/24 12/07/24 Unknown Rx glipizide 5 mg tablet, extended 5 mg PO DAILY #90 tabs 05/31/24 12/07/24 12/06/24 Rx release 24 hr aripiprazole 5 mg tablet 5 mg PO DAILY #90 tabs 06/27/24 12/07/24 12/06/24 Rx benztropine 1 mg tablet 1 mg PO DAILY #90 tabs 06/27/24 12/07/24 12/06/24 Rx trazodone 150 mg tablet 150 mg PO .HS #90 tabs 06/27/24 12/07/24 12/05/24 20:00 Rx ASO #1 ea 07/10/24 12/07/24 Unknown Rx amlodipine 10 mg tablet 10 mg PO .COMPLEX #90 tabs 09/23/24 12/07/24 12/06/24 Rx baclofen 20 mg tablet See Rx Instructions .Route 09/30/24 12/07/24 12/06/24 Rx .COMPLEX #270 tabs celecoxib 200 mg capsule See Rx Instructions .Route 11/04/24 12/07/24 12/06/24 Rx .COMPLEX #90 caps losartan 50 mg tablet 50 mg PO DAILY #90 tabs 11/04/24 12/07/24 12/06/24 Rx metformin 500 mg tablet See Rx Instructions .Route 11/04/24 12/07/24 12/06/24 09:00 Rx .COMPLEX #270 tabs omeprazole 40 mg capsule,delayed See Rx Instructions .Route 11/04/24 12/07/24 12/06/24 Rx release .COMPLEX #90 caps rosuvastatin 40 mg tablet See Rx Instructions .Route 11/04/24 12/07/24 12/06/24 Rx .COMPLEX #90 tabs pregabalin 75 mg capsule 75 mg PO BID #60 caps 11/26/24 12/07/24 12/06/24 09:00 Rx buprenorphine HCl 8 mg sublingual 0.4 mg sublingual BID 12/07/24 12/07/24 12/06/24 20:00 History tablet Allergies Allergy/AdvReac Type Severity Reaction Status Date / Time No Known Allergies Allergy Verified 11/29/24 10:06 Current Medications Generic Name Dose Route Start Last Admin Trade Name Skinny PRN Reason Stop Dose Admin Aripiprazole 5 mg 12/07/24 09:00 12/07/24 11:11 Aripiprazole 10 Mg Tablet PO 5 mg DAILY DANNIE Administration Atorvastatin Calcium 80 mg 12/06/24 21:00 12/06/24 21:00 Atorvastatin 40 Mg Tablet PO 80 mg BEDTIME DANNIE Administration Baclofen 20 mg 12/06/24 21:00 12/07/24 11:11 Baclofen 10 Mg Tablet PO 20 mg TID DANNIE Administration Benztropine Mesylate 1 mg 12/07/24 09:00 12/07/24 11:11 Benztropine 1 Mg Tablet PO 1 mg DAILY DANNIE Administration Buprenorphine/Naloxone 1 each 12/07/24 09:00 12/07/24 11:11 Buprenorphine-Naloxon 2-0.5mg Film SUBLINGUAL 1 each DAILY DANNIE Administration Diclofenac Sodium 1 applic 12/06/24 21:00 12/07/24 11:41 Diclofenac 1% Topical Gel 100 Gm TOPICAL 1 applic QID DANNIE Administration Docusate Sodium 100 mg 12/07/24 09:00 12/07/24 11:12 Docusate Sodium 100 Mg Capsule PO 100 mg BID DANNIE Administration Enoxaparin Sodium 40 mg 12/06/24 18:30 12/06/24 18:41 Enoxaparin 40 Mg/0.4 Ml Syringe SUBCUT 40 mg Q24H DANNIE Administration Fluticasone Propionate 1 spray 12/07/24 09:00 12/07/24 11:41 Fluticasone Nasal Perry 16gm Btl INTRANASAL 1 spray DAILY DANNIE Administration Vancomycin HCl 1,500 mg in 300 mls @ 200 mls/hr 12/07/24 03:00 12/07/24 11:40 Vancocin IV 200 mls/hr Q8H DANNIE Administration Ketorolac Tromethamine 30 mg 12/06/24 18:44 12/07/24 05:28 Ketorolac 30 Mg/Ml Inj IVP 12/11/24 18:43 30 mg Q6H PRN Administration MODERATE PAIN Losartan Potassium 50 mg 12/07/24 09:00 12/07/24 11:12 Losartan 50 Mg Tablet PO 50 mg DAILY DANNIE Administration Morphine Sulfate 4 mg 12/06/24 22:04 12/07/24 01:21 Morphine 4 Mg/Ml Sdv 1 Ml IVP 4 mg Q4H PRN Administration SEVERE PAIN Pantoprazole Sodium 40 mg 12/07/24 09:00 12/07/24 11:[address] 40 Mg Tablet PO 40 mg DAILY DANNIE Administration Polyethylene Glycol 17 gm 12/07/24 09:00 12/07/24 11:12 Polyethylene Glycol 3350 Pkt 17 Gm PO 17 gm DAILY DANNIE Administration Pregabalin 75 mg 12/07/24 09:00 12/07/24 11:11 Pregabalin 75 Mg Capsule PO 75 mg BID DANNIE Administration Trazodone HCl 150 mg 12/06/24 21:00 12/06/24 21:02 Trazodone 150 Mg Tablet PO 150 mg BEDTIME DANNIE Administration PFSH Acute PFSH: Medical History (Updated 12/07/24 @ 12:11 by Jimmie Ferraro DPM) Psychiatric care Borderline hypercholesterolemia Diabetic neuropathy Chronic low back pain Diabetes Hypertension Surgical History History of Esther fundoplication History of spinal surgery x2 spinal stimulators placed History of back surgery Family History Father CAD (coronary artery disease) Mother Cancer breast Grandmother Diabetes Denies family history of Clotting disorder Dementia Hyperlipidemia Psychiatric illness Chronic kidney disease (CKD) Anesthesia complication Bleeding disorder Lung disease Hypertension Stroke Social History (Updated 12/06/24 @ 18:10 by Rito Lawrence MD) Smoking and tobacco/nicotine status: never used tobacco/nicotine Alcohol intake: former Year of sobriety/quit date alcohol: 1977 Former alcohol use details: Drink in high school Substance/Drug Use: never Additional social history: He wants full code as discussed today with Rito Lawrence MD on 12/06/2024. 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 Current gender identity: Male Vitals/I&O/Wt Last Vital Signs Temp 98.1 F 12/07/24 11:41 Pulse 66 12/07/24 11:41 Resp 19 H 12/07/24 11:41 BP 149/83 12/07/24 11:41 Pulse Ox 93 12/07/24 11:41 O2 Del Method Room Air 12/07/24 11:41 12/06/24 12/07/24 12/07/24 22:59 06:59 14:59 Intake Total 300 / 300 990 / 1290 360 / 360 Output Total 775 / 775 Balance 300 / 300 215 / 515 360 / 360 Weight last 48 hrs Weight 265 lb Weight 265 lb Physical Exam Narrative: BELOW IS A FOCUSED LOWER EXTREMITY EXAM GENERAL: A&O x 3 VASCULAR: DP/PT pulses diminished with delayed capillary refill DERMATOLOGICAL: Full-thickness ulceration distal aspect of left foot second toe with erythema and edema extending to the level of the metatarsophalangeal joint. Positive probe to bone to distal aspect of second digit. MUSCULOSKELETAL: Left foot: Semirigid hammertoe deformity of the second toe with dorsal prominence at the PIPJ. Ankle joint and hindfoot range of motion within normal limits bilaterally. 5/5 muscle strength in all quadrants of the lower extremities when tested against resistance. NEUROLOGICAL: Neurological sensation to the affected foot and ankle is diminished through L4-S1 dermatomes via 10g SWMF, diminished sensation extends proximally to the level of the MTPJs IMAGING: MRI of left foot independently turbid by me show erosive changes consistent with osteomyelitis of distal phalanx of left second toe. Data 12/06/24 17:00 12/06/24 17:00 Micro: Microbiology 12/06/24 17:16 Blood Culture - Preliminary Blood SPECIMEN COLLECTED 12/06/24 17:00 Blood Culture - Preliminary Blood SPECIMEN COLLECTED A&P Assessment and plan 1. Osteomyelitis: 2. Diabetic infection of left foot: 3. Diabetic neuropathy: Plan: - Left foot second toe ulceration with underlying osteomyelitis confirmed with MRI -Labs and vitals reviewed -WBC 6.02 -ESR 4.0 -CRP 3.0 -HR 64 -RR 19 -Tmax 98.5 -Abx Vanco/Zosyn - IMAGING: Osteomyelitis left foot second toe distal phalanx confirmed on MRI -Diet: Okay for diet -Plan for left foot second toe partial amputation on 12/09/2024. MRI findings of osteomyelitis of distal phalanx left foot second toe were discussed with patient. Patient verbalizes understanding. N.p.o. at midnight 12/09/2024 -Pain Mgmt: Per primary team -Weight bearing: As tolerated for transfers -Dressings: Dressing applied by podiatry. To remain intact until surgery -Continue current Abx therapy until ID and Sensitivity results -Trend labs -Discharge plan: Anticipate discharge home on oral antibiotics on 12/09/2024 after surgery pending intraoperative findings -Podiatry will continue to round on patient daily and provide recommendations PDMP PDMP Reviewed: Not Reviewed Coding Level of Care Code Acute Code for [facility] Fwd Diagnoses Osteomyelitis M86.9 Diabetic infection of left foot E11.628; L08.9 Diabetic neuropathy E11.40
--- NOTE | 2024-12-07 12:07 | PC.CHAP ---
Pastoral Care Encounter/Spiritual Assessment Type of Contact [] Declined suit attendant visit [] Patient/Family/Request visit [] Outpatient visit [] Follow-up visit [] Physician referral [] Code/Alert [x] Routine visit [] Staff referral [] Actively dying [] Patient sleeping [] Family support [] [] Out of room [] Palliative care [] [] Receiving care in room [] Pre-surgical visit [] Trauma [] Long length of stay [] ICU visit [] Other: Relational/Emotional Strength [x] Patient feels connected with others/family/visitors/staff [] Distress [] Loneliness/isolation [] Abandonment Spirituality of Patient [x] Person of Karena [x] Attends Yazdanism of their Karena [x] Believes in Prayer [x] Reads Bible or Zoroastrian materials [] There are Spiritual issues to be addressed Stem Cutter Interventions [x] Prayer [x] Active listening [x] Non-anxious presence [] Spiritual/emotional support [] Crisis/trauma care [] Spiritual counseling [] Bereavement support [] Provided bereavement packet [] Provided Bible/devotional materials [] Provided toy/stuffed animal, coloring book to patient or family member [] Provided Communion [] Anointing/[place] [] Salvation [] Completed spiritual assessment [] Other: Impact on Illness or Injury [] Angry [] Fearful [] Anxious [] Often cries [] Exhaustion [] Unable to work [] Unable to attend hoahaoism [] Unable to walk/stand [] Unable to read [] Unable to drive [] Unable to eat/drink [] Unable to sleep [] Unable to be with family [] Patient intubated [] Other: Summary Time spent with patient 30
--- NOTE | 2024-12-07 17:43 | P.PN_ITS ---
Subjective 2 Subjective: 59-year-old male with morbid o besity admitted with history of diabetes and left second toe ulcer. He states Dr. Ferraro came by and dressed his toe today. Patient reports no bowel movement and would need some medication assistance with that Vitals/I&O/Wt Last Vital Signs Temp 97.6 F 12/07/24 15:58 Pulse 60 12/07/24 15:58 Resp 17 12/07/24 15:58 BP 130/79 12/07/24 15:58 Pulse Ox 97 12/07/24 15:58 O2 Del Method Room Air 12/07/24 15:58 12/07/24 12/07/24 12/07/24 06:59 14:59 22:59 Intake Total 990 / 1290 840 / 840 Output Total 775 / 775 Balance 215 / 515 840 / 840 Weight last 48 hrs Weight 120.202 kg Weight 120.202 kg Physical Exam 2 Narrative: General well-developed well-nourished morbidly obese male in no acute cardiopulmonary distress CV regular rate and rhythm Lungs clear to auscultation bilaterally Left second toe and up red Coban reinforce dressing left dorsal pedal pulse 2+ Data 12/06/24 17:00 12/06/24 17:00 Micro: Microbiology 12/06/24 17:16 Blood Culture - Preliminary Blood NEGATIVE TO DATE 12/06/24 17:00 Blood Culture - Preliminary Blood NEGATIVE TO DATE A&P Assessment and plan 1. Diabetic infection of left foot: Left second toe is ulcerated and erythematous. Cannot exclude MRSA. Will cover for diabetic foot infection with Zosyn and vancomycin will obtain wound culture and Gram stain. Culture was not done prior to most recent dressing. Surgery planned on Monday and MRI showed osteomyelitis of the second toe distal phalanx 2. Diabetes: Start 2000-calorie ADA diet and sliding scale insulin low scale 3. Chronic low back pain: Resume home meds 4. Diabetic neuropathy: As above PDMP PDMP Reviewed: Not Reviewed Attestations 2 Medical Necessity Statement*: Patient jun in hospital for IV antibiotics and surgery on Monday will be in the hospital greater than 2 additional midnights Coding Level of Care Code 76463 Diagnoses Diabetic infection of left foot E11.628; L08.9 Diabetes E11.9 Chronic low back pain M54.50; G89.29 Diabetic neuropathy E11.40 Time Spent (min) 15
[2024-12-08] VITALS (7 sets, daily range): BP systolic 106–153; BP diastolic 68–96; PULSE 54–116; RESP 13–18; TEMP 36.4–36.9; O2SAT 92–96
[2024-12-08] MEDS: piperacillin-tazobactam 3.375 GM in sodium chloride 0.9% (plus) 50 ML IV ×3 (04:46→20:42)
[2024-12-08 05:30] LABS: Hematocrit 38.5 % (37-53); Hemoglobin 12.40 g/dL (11.27-16.99); Mean Corpuscular HGB Conc 32.2 g/dL (30-55); Mean Corpuscular Hemoglobin 27.2 pg (27-33); Mean Corpuscular Volume 84.4 fl (82-101); Nucleated Red Blood Cells % 0 %; Platelet Count 227 10^3/cmm (157-399); Red Blood Count 4.56 10^6/uL (3.85-5.65); White Blood Count 5.30 10^3/uL (3.29-11.43)
[2024-12-08] MEDS: polyethylene glycol 3350 Pkt 17 gm PO (08:38)
[2024-12-08] MEDS: buprenorphine-naloxon 2-0.5MG FILM 1 EACH SUBLINGUAL (08:38)
[2024-12-08] MEDS: diclofenac 1% Topical Gel 100 gm 1 APPLIC TOPICAL ×3 (08:40→17:43)
[2024-12-08] MEDS: fluticasone nasal spray 16gm Btl 1 SPRAY INTRANASAL (08:40)
[2024-12-08] MEDS: vancomycin 1,750 MG/350 ML PIGGYBACK 175 MG IV ×2 (11:06→22:19)
[2024-12-08 13:35] LABS: Creatinine Clr Calc Pharmacy 146.7664
[2024-12-08] MEDS: lactulose oral liq 20 gm/30 mL UDC 10 GM PO (14:20)
--- NOTE | 2024-12-08 14:24 | P.PN_ITS ---
Subjective 2 Subjective: 59-year-old male with suspecte d osteomyelitis left second toe distal phalanx states he is sleeping a lot due to pain meds. He also reports constipation has not had a bowel movement yet despite getting MiraLAX daily. He has not received his as needed milk of mag or lactulose. Patient states he has a cough and takes losartan but not lisinopril Vitals/I&O/Wt Last Vital Signs Temp 97.6 F 12/08/24 11:36 Pulse 75 12/08/24 11:36 Resp 16 12/08/24 11:36 BP 149/96 12/08/24 11:36 Pulse Ox 94 12/08/24 11:36 O2 Del Method Room Air 12/08/24 11:36 12/07/24 12/08/24 12/08/24 22:59 06:59 14:59 Intake Total 770 / 1960 290 / 2250 290 / 290 Output Total 400 / 400 Balance 770 / 1960 -110 / 1850 290 / 290 Weight last 48 hrs Weight 120.202 kg Weight 120.202 kg Weight 120.202 kg Physical Exam 2 Narrative: General well-developed obese male no acute cardiopulmonary stress CV regular rate and rhythm Lungs clear to auscultation bilaterally Data 12/08/24 04:59 12/08/24 13:05 Micro: Microbiology 12/06/24 17:16 Blood Culture - Preliminary Blood NEGATIVE TO DATE 12/06/24 17:00 Blood Culture - Preliminary Blood NEGATIVE TO DATE A&P Assessment and plan 1. Diabetic infection of left foot: Left second toe is ulcerated and erythematous. Cannot exclude MRSA. Will cover for diabetic foot infection with Zosyn and vancomycin will obtain wound culture and Gram stain. Culture was not done prior to most recent dressing. Surgery planned on Monday and MRI showed osteomyelitis of the second toe distal phalanx though sed rate and C-reactive protein were normal 2. Diabetes: Continue 2000-calorie ADA diet and sliding scale insulin low scale 3. Chronic low back pain: Resume home meds. Patient also has a stimulator which she has brought in and is using 4. Diabetic neuropathy: As above PDMP PDMP Reviewed: Not Reviewed Attestations 2 Medical Necessity Statement*: Patient jun in hospital awaiting surgery tomorrow morning treated in the interim with IV antibiotics and will require 1 additional midnight Coding Level of Care Code 17086 Diagnoses Diabetic infection of left foot E11.628; L08.9 Diabetes E11.9 Chronic low back pain M54.50; G89.29 Diabetic neuropathy E11.40 Time Spent (min) 15
--- NOTE | 2024-12-08 15:29 | PM.PN ---
Subjective Subjective: Patient seen at bedside. Resting comfortably. Surgery tomorrow Vitals/I&O/Wt Last Vital Signs Temp 97.6 F 12/08/24 11:36 Pulse 75 12/08/24 11:36 Resp 16 12/08/24 11:36 BP 149/96 12/08/24 11:36 Pulse Ox 94 12/08/24 11:36 O2 Del Method Room Air 12/08/24 11:36 12/08/24 12/08/24 12/08/24 06:59 14:59 22:59 Intake Total 290 / 2250 290 / 290 Output Total 400 / 400 Balance -110 / 1850 290 / 290 Weight last 48 hrs Weight 265 lb Weight 265 lb Weight 265 lb Physical Exam Narrative: BELOW IS A FOCUSED LOWER EXTREMITY EXAM GENERAL: A&O x 3 VASCULAR: DP/PT pulses diminished with delayed capillary refill DERMATOLOGICAL: Full-thickness ulceration distal aspect of left foot second toe with erythema and edema extending to the level of the metatarsophalangeal joint. Positive probe to bone to distal aspect of second digit. MUSCULOSKELETAL: Left foot: Semirigid hammertoe deformity of the second toe with dorsal prominence at the PIPJ. Ankle joint and hindfoot range of motion within normal limits bilaterally. 5/5 muscle strength in all quadrants of the lower extremities when tested against resistance. NEUROLOGICAL: Neurological sensation to the affected foot and ankle is diminished through L4-S1 dermatomes via 10g SWMF, diminished sensation extends proximally to the level of the MTPJs IMAGING: MRI of left foot independently turbid by me show erosive changes consistent with osteomyelitis of distal phalanx of left second toe. Data 12/08/24 04:59 12/08/24 13:05 Micro: Microbiology 12/06/24 17:16 Blood Culture - Preliminary Blood NEGATIVE TO DATE 12/06/24 17:00 Blood Culture - Preliminary Blood NEGATIVE TO DATE A&P Assessment and plan 1. Osteomyelitis: 2. Diabetic infection of left foot: 3. Diabetic neuropathy: Plan: - Left foot second toe ulceration with underlying osteomyelitis confirmed with MRI -Labs and vitals reviewed - VSS -Abx Vanco/Zosyn -Cultures: Cultures will be obtained intraoperatively tomorrow 12/09/2024. Bone cultures will be most appropriate as wound is not actively draining. Culture swab of surface of wound would likely produce contaminant, skin olegario. Bone culture will be more appropriate for directing antibiotic therapy. - IMAGING: Osteomyelitis left foot second toe distal phalanx confirmed on MRI -Diet: N.p.o. at midnight -Plan for left foot second toe partial amputation tomorrow 12/09/2024. MRI findings of osteomyelitis of distal phalanx left foot second toe were discussed with patient. Patient verbalizes understanding. N.p.o. at midnight 12/09/2024 -Pain Mgmt: Per primary team -Weight bearing: As tolerated for transfers -Dressings: Dressing applied by podiatry. To remain intact until surgery -Continue current Abx therapy until ID and Sensitivity results -Trend labs -Discharge plan: Anticipate discharge home on oral broad-spectrum antibiotics on 12/09/2024 after surgery pending intraoperative findings. Oral antibiotics will be adjusted in the outpatient setting pending micro ID and sensitivity -Podiatry will continue to round on patient daily and provide recommendations PDMP PDMP Reviewed: Not Reviewed Attestations Medical Necessity Statement*: Surgery tomorrow for osteomyelitis left second toe Coding Level of Care Code Acute Code for [facility] Diagnoses Osteomyelitis M86.9 Diabetic infection of left foot E11.628; L08.9 Diabetic neuropathy E11.40
[2024-12-09] VITALS (20 sets, daily range): BP systolic 110–184; BP diastolic 68–107; PULSE 58–98; RESP 12–18; TEMP 36.1–36.7; O2SAT 90–99
[2024-12-09] MEDS: piperacillin-tazobactam 3.375 GM in sodium chloride 0.9% (plus) 50 ML IV ×2 (04:55→14:16)
[2024-12-09 05:07] LABS: Anion Gap 14.0 (5-19); Blood Urea Nitrogen 8 mg/dL (6-20); Calcium 9.3 mg/dL (8.5-10.5); Carbon Dioxide 27 mmol/L (22-29); Chloride 106 mmol/L (98-107); Creatinine Clr Calc Pharmacy 119.4531; Glucose 163 mg/dL (65-115); Osmolality Calculated 298 mOsm/kg (285-295); Potassium 4.0 mmol/L (3.5-5.1); Sodium 143 mmol/L (136-145)
--- NOTE | 2024-12-09 07:03 | P.ANESASSM_ITS ---
Pre-Anesthetic Assessment Height/Weight: Height 5 ft 8 in Weight 230 lb 11.2 oz Temp Pulse Resp BP Pulse Ox O2 Del Method 97.6 F 60 18 148/77 99 Room Air 12/09/24 04:00 12/09/24 04:00 12/09/24 04:00 12/09/24 04:00 12/09/24 04:00 12/09/24 04:00 Preop Diagnosis: Osteomyelitis Operation Date: 12/09/24 10:00 Proposed Procedures p Amputation Toe/s Toe Amputation(Left) - Jimmie Ferraro, DPM Was Beta Courtney taken within 24 hours: N/A Was Clonidine taken within 24 hours: N/A Last intake: Intake Last Liquid Date 12/08/24 Last Solid Date 12/08/24 Social No alcohol and No tobacco Exam alert, oriented x 3, clear to auscultation bilaterally and regular rate & rhythm Airway Submandibular: Other (Severe micrognathia) Cervical ROM: within normal limits Mallampati: Class III Comments: Comments: Edentulous Anesthetic Plan ASA status: 3 Anesthesia: MAC Other: Patient initially admitted 12/06/2024 for foot osteomyelitis No prior issues with anesthesia IDDM, last A1c was 7.1 Patient has had a prior Esther fundoplication Labs reviewed and acceptable for procedure Plan for MAC anesthesia with local via surgeon Medications/Allergies Home Medications ?Medication ?Instructions ?Recorded ?Confirmed ?Last Taken ?Type blood sugar diagnostic (Blood #50 ea 01/11/22 12/07/24 05/21/23 08:00 Rx Glucose Test strips) fluticasone propionate 50 1 spray intranasal DAILY 04/0312/07/24 12/06/24 History mcg/actuation nasal spray,suspension lancets (Fingerstix Lancets) #100 ea 01/11/22 12/07/24 05/21/23 08:00 Rx blood-glucose meter #1 ea 01/14/22 12/07/24 03/ 08:00 Rx Diabetic Shoes with 3 sets of #1 ea 05/02/22 12/07/24 05/21/23 08:00 Rx inserts cetirizine 10 mg capsule (All Day 10 mg PO DAILY PRN a llergy 07/22/22 12/07/24 12/06/24 Rx Allergy (cetirizine)) symptoms #90 caps sennosides 8.6 mg-docusate sodium 2 tab-cap PO BID PRN Constipation 05/21/23 12/07/24 05/21/23 08:00 History 50 mg tablet Diabetic Shoes #1 ea 05/08/24 12/07/24 Unkn own Rx glipizide 5 mg tablet, extended 5 mg PO DAILY #90 tabs 05/31/24 12/07/24 12/06/24 Rx release 24 hr aripiprazole 5 mg tablet 5 mg PO DAILY #90 tabs 06/2712/07/24 12/06/24 Rx benztropine 1 mg tablet 1 mg PO DAILY #90 tabs 06/2712/07/24 12/06/24 Rx trazodone 150 mg tablet 150 mg PO .HS #90 tabs 06/2712/07/24 12/05/24 20:00 Rx ASO #1 ea 07/10/24 12/07/24 Unkn own Rx amlodipine 10 mg tablet 10 mg PO .COMPLEX #90 tabs 0 09/23/24 12/07/24 12/06/24 Rx baclofen 20 mg tablet See Rx Instructions .Route 0 09/30/24 12/07/24 12/06/24 Rx .COMPLEX #270 tabs celecoxib 200 mg capsule See Rx Instructions .Route 0 11/04/24 12/07/24 12/06/24 Rx .COMPLEX #90 caps losartan 50 mg tablet 50 mg PO DAILY #90 tabs 10/1212/07/24 12/06/24 Rx metformin 500 mg tablet See Rx Instructions .Route 0 11/04/24 12/07/24 12/06/24 09:00 Rx .COMPLEX #270 tabs omeprazole 40 mg capsule,delayed See Rx Instructions . Route 11/04/24 12/07/24 12/06/24 Rx release .COMPLEX #90 caps rosuvastatin 40 mg tablet See Rx Instructions .Route 0 11/04/24 12/07/24 12/06/24 Rx .COMPLEX #90 tabs pregabalin 75 mg capsule 75 mg PO BID #60 caps 12/07/24 12/06/24 09:00 Rx buprenorphine HCl 8 mg sublingual 0.4 mg sublingual BI D 12/07/24 12/07/24 12/06/24 20:00 History tablet Allergies Allergy/AdvReac Type Severity Reaction Status Date / Time No Known Allergies Allergy Verified 11/29/24 10:06 Current Medications Generic Name Dose Route Start Last Admin Trade Name Skinny PRN Reason Stop Dose Admin Aripiprazole 5 mg 12/07/24 09:00 12/08/24 08:40 Aripiprazole 10 Mg Tablet PO 5 mg DAILY DANNIE Administration Atorvastatin Calcium 80 mg 12/06/24 21:00 12/08/24 20:10 Atorvastatin 40 Mg Tablet PO 80 mg BEDTIME DANNIE Administration Baclofen 20 mg 12/06/24 21:00 12/08/24 20:10 Baclofen 10 Mg Tablet PO 20 mg TID [facility] Administration Benztropine Mesylate 1 mg 12/07/24 09:00 12/08/24 08:39 Benztropine 1 Mg Tablet PO 1 mg DAILY [facility] Administration Buprenorphine/Naloxone 1 each 12/07/24 09:00 12/08/24 08:38 Buprenorphine-Naloxon 2-0.5mg Film SUBLINGUAL 1 each DAILY [facility] Administration Diclofenac Sodium 1 applic 12/06/24 21:00 12/08/24 22:19 Diclofenac 1% Topical Gel 100 Gm TOPICAL Not Given QID [facility] Docusate Sodium 200 mg 12/09/24 06:45 12/09/24 06:44 Docusate Sodium 100 Mg Capsule PO 200 mg BID@0500,1700 [facility] Administration Enoxaparin Sodium 40 mg 12/06/24 18:30 12/08/24 17:42 Enoxaparin 40 Mg/0.4 Ml Syringe SUBCUT 40 mg Q24H DANNIE Administration Fluticasone Propionate 1 spray 12/07/24 09:00 12/08/24 08:40 Fluticasone Nasal [place] 16gm Btl INTRANASAL 1 spray DAILY [facility] Administration Piperacillin Sod/Tazobactam 50 mls @ 12.5 mls/hr 12/07/24 13:30 12/09/24 04:55 Sod 3.375 gm/ Sodium Chloride IV 12.5 mls/hr Q8H [facility] Administration Vancomycin HCl 1,750 mg in 350 mls @ 175 mls/hr 12/08/24 10:45 12/09/24 00:29 Vancocin IV Infused Q12H DANNIE Infusion Ketorolac Tromethamine 30 mg 12/06/24 18:44 12/07/24 05:28 Ketorolac 30 Mg/Ml Inj IVP 12/11/24 18:43 30 mg Q6H PRN Administration MODERATE PAIN Losartan Potassium 50 mg 12/07/24 09:00 12/08/24 08:39 Losartan 50 Mg Tablet PO 50 mg DAILY DANNIE Administration Morphine Sulfate 4 mg 12/06/24 22:04 12/07/24 20:49 Morphine 4 Mg/Ml Sdv 1 Ml IVP 4 mg Q4H PRN Administration SEVERE PAIN Pantoprazole Sodium 40 mg 12/07/24 09:00 12/08/24 08:[address] 40 Mg Tablet PO 40 mg DAILY DANNIE Administration Polyethylene Glycol 17 gm 12/07/24 09:00 12/08/24 08:38 Polyethylene Glycol 3350 Pkt 17 Gm PO 17 gm DAILY DANNIE Administration Pregabalin 75 mg 12/09/24 05:00 12/09/24 04:54 Pregabalin 75 Mg Capsule PO 75 mg BID@0500,1700 DANNIE Administration Trazodone HCl 150 mg 12/06/24 21:00 12/08/24 20:10 Trazodone 150 Mg Tablet PO 150 mg BEDTIME DANNIE Administration [facility] Anesthesia Medical History (Updated 12/07/24 @ 12:11 by Jimmie Ferraro DPM) Psychiatric care Borderline hypercholesterolemia Diabetic neuropathy Chronic low back pain Diabetes Hypertension Surgical History History of Esther fundoplication History of spinal surgery x2 spinal stimulators placed History of back surgery Family History Father CAD (coronary artery disease) Mother Cancer breast Grandmother Diabetes Denies family history of Clotting disorder Dementia Hyperlipidemia Psychiatric illness Chronic kidney disease (CKD) Anesthesia complication Bleeding disorder Lung disease Hypertension Stroke Social History (Updated 12/06/24 @ 18:10 by Rito Lawrence MD) Smoking and tobacco/nicotine status: never used tobacco/nicotine Alcohol intake: former Year of sobriety/quit date alcohol: 1977 Former alcohol use details: Drink in high school Substance/Drug Use: never Additional social history: He wants full code as discussed today with Rito Lawrence MD on 12/06/2024. 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
--- NOTE | 2024-12-09 07:15 | P.HPUD_ITS ---
Surgery/Procedure H&P Update DATE OF PROCEDURE: December 09, 2024 DATE H&P PERFORMED: 12/06/24 H&P UPDATE INFORMATION: I have reviewed H&P completed within last 30 days, I have examined patient prior to procedure, No changes to prior documentation, H&P is in [facility] EMR on date indicated and Risks and benefits of the procedure reviewed PLANNED PROCEDURE: Operation Date: 12/09/24 10:00 Proposed Procedures p Amputation Toe/s Toe Amputation(Left) - Jimmie Ferraro DPM
[2024-12-09] MEDS: BUPivacaine 0.5% INJ 30 mL 20 ML INJECTION (07:54)
--- NOTE | 2024-12-09 08:03 | P.OP_ITS ---
Operative Report Date of procedure: December 09, 2024 Surgeon: Jimmie Ferraro DPM Procedure: Date of procedure: 12/09/2024 Pre-op diagnosis: Left foot second toe osteomyelitis distal phalanx Post-op diagnosis: Same Post-op findings: Osteomyelitis left foot distal phalanx second toe Procedure done: Partial amputation left second toe CPT 43851 Implants: None Specimens removed: Left foot second toe distal phalanx Surgeon: Dr. 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 The extent of infection necessitates surgical intervention. A lengthy discussion regarding the procedure, including risks and complications has been had with the patient and is noted in the recent clinic note. Written and verbal consent have been obtained. All patient questions have been answered to the patient?s satisfaction. No written or verbal guarantees have been given or implied. The patient has been NPO since midnight. The history has been reviewed and the history and physical is current. The signed consent was confirmed and placed in the patient chart. Patient imaging has been reviewed and is consistent with the diagnosis. Under mild sedation, the patient was brought into the operating room and placed on the table in the supine position. IV antibiotics were given by the anesthesia team as preoperative surgical prophylaxis. MAC sedation was then performed by the anesthesiateam. A pneumatic tourniquet was then placed about the left ankle. The operative extremity was then prepped and draped in the usual fashion. The extremity was then elevated and exsanguinated before the tourniquet was inflated to 250 mmHg. After inflation, the following procedure was then performed. Attention was directed to the distal aspect of the left second toe where a fishmouth incision was made using #15 blade. Dissection was carried down to the level of the distal interphalangeal joint. Joint was released and distal phalanx and distal portion of toe were passed from the operative field to be sent a surgical specimen. Site was irrigated with copious amounts sterile saline. Remaining tissue appeared healthy and viable without signs of infection. Incision was closed with 4-0 nylon in simple interrupted fashion. Tourniquet was let down and good hyperemic response was noted to remaining digits of left foot. Incision site was dressed with Xeroform, 4 x 4 gauze, Kerlix, Ruiz bandage. The patient tolerated the procedure and anesthesia well and without compli cation. The patient was transported from the operating room to the recovery room with vital signs stable and vascular status intact to all digits of the left foot. The patient was given both written and verbal instructions to remain weightbearing as tolerated to the operative extremity, to keep dressings/splint clean, dry and intact and to take pain medication as directed. The patient will follow-up in the outpatient setting at their scheduled appointment. The patient was discharged with my personal number and was instructed to call if any questions or issues should arise. They were discharged home once anesthesia criteria was met. Patient will be okay to discharge home on broad-spectrum oral antibiotics. Follow-up within 1 week of discharge
--- NOTE | 2024-12-09 08:35 | ANE.PACU2 ---
Inpatient post-anesthesia follow up: Airway intact: Yes Vital signs: Temperature 97.7 F Pulse Rate 71 Respiratory Rate 17 Blood Pressure 163/107 Pulse Oximetry 97 Oxygen Delivery Me thod Room Air Oxygen Flow Rate 10 Fraction of Inspir ed Oxygen Hydration adequate: Yes Nausea and vomiting: No Pain level: 1 Mental status: Baseline
[2024-12-09] MEDS: lactulose oral liq 20 gm/30 mL UDC 10 GM PO (09:03)
[2024-12-09] MEDS: buprenorphine-naloxon 2-0.5MG FILM 1 EACH SUBLINGUAL (09:04)
[2024-12-09] MEDS: polyethylene glycol 3350 Pkt 17 gm PO (09:05)
[2024-12-09] MEDS: fluticasone nasal spray 16gm Btl 1 SPRAY INTRANASAL (09:06)
--- NOTE | 2024-12-09 09:11 | P.DS_ITS ---
Discharge Providers 2 Date of Admission: 12/06/24 17:49 Date of Discharge: December 09, 2024 Attending Provider at Admission: Rito Lawrence MD Attending Provider at Discharge: Grabiel Gill MD Primary Care Provider: Ananth Hills MD Diagnoses at Discharge Discharge Diagnosis 1. Osteomyelitis: 2. Diabetic infection of left foot: 3. Diabetic neuropathy: Reason for Visit 2 Reason for Visit: lt foot pain (sent by pillo) Brief History: Per HPI [place] is a 59 year old male with history of diabetes for 15 years and also hyperlipidemia. A1c was last 7.1 he states his blood sugars run 120-150 in the a.m. which is the only time he checks it patient states he has lost 10 to 15 pounds in last 1 year. His grandpa on both sides as well as his dad have had heart attacks but he is the only one that family has diabetes. Patient states his left second toe on 11/20/[address] Ferraro for routine diabetic care and nail care. He had a toe that bends down and the callus that abuts the floor was debrided off. He states this was healing well until this morning when he noted ulceration machine nail that disintegrated off and erythema. He states that 4 to 5 hours later it straight up the toe he called Dr. Ferraro and was sent to the emergency department. Cori spoke with Dr. Ferraro who recommends patient be admitted for MRI and IV antibiotics with anticipated surgery on Monday. Hospital Course Hospital Course Patient was in [facility] for further evaluation and management of diabetic foot infection along with concerns for possible osteomyelitis. Podiatry was consulted. MRI was done which was consistent with osteomyelitis of distal phalanx of the left foot second toe. He underwent partial amputation of left second toe on 12/09. There was no further concern for osteomyelitis intraoperatively. Patient did have somnolence postoperatively which resolved in 4 to 5 hours. ABG was done which was negative for hypercapnia. CT head was negative for stroke. Patient is awake and alert, back to baseline mentation, able to maintain oral intake. Has been discharged back home in hemodynamically stable condition on oral Augmentin and Levaquin for 10 days with advise to follow-up with podiatry team as an outpatient. Physical Exam 2 Narrative: General well-developed obese male no acute cardiopulmonary stress CV regular rate and rhythm Lungs clear to auscultation bilaterally Extremity: OTHER: Discharge Data Studies Completed and Pending Completed Studies During Hospitalization Category Date Time Status XR toe LT min 2V 41066 Stat Exams 12/06/24 16:56 Completed MR foot LT wo/w con 25070 Routine MRI 12/07/24 11:00 Completed Pending at discharge Category Date Time Status Blood Culture Stat Lab 12/06/24 17:16 Results Pathology: Surgical [PTH] Routine Pth 12/09/24 07:56 Ordered Radiology Impressions Toe X-Ray 12/06/24 16:56 IMPRESSION: 1. Soft tissue swelling along the dorsal aspect of the forefoot and soft tissue swelling at the distal aspect of the 2nd digit. 2. No cortical irregularity or medullary lucency to suggest osteomyelitis. Foot MRI 12/07/24 11:00 IMPRESSION: 1. Ulcer defect involving the 2nd toe with regional cellulitis. 2. Osteomyelitis involving the distal phalanx of the 2nd toe. 3. Abnormal signal involving the 1st and 2nd metatarsals, cuneiforms and navicular. As mentioned above, this most likely represents neuropathic type change. Osteomyelitis can not be excluded. Laboratory Results WBC 5.30 10^3/uL (3.29-11.43) 12/08/24 04:59 RBC 4.56 10^6/uL (3.85-5.65) 12/08/24 04:59 Hgb 12.40 g/dL (11.27-16.99) 12/08/24 04:59 Hct 38.5 % (37-53) 12/08/24 04:59 MCV 84.4 fl (82-101) 12/08/24 04:59 MCH 27.2 pg (27-33) 12/08/24 04:59 MCHC 32.2 g/dL (30-55) 12/08/24 04:59 RDW 13.2 % (12.1-15.1) 12/08/24 04:59 Plt Count 227 10^3/cmm (157-399) 12/08/24 04:59 MPV 9.1 fL (7.4-10.4) 12/08/24 04:59 Neut % (Auto) 57.4 % 12/08/24 04:59 Lymph % (Auto) 24.2 % 12/08/24 04:59 Meagher % (Auto) 9.6 % 12/08/24 04:59 Eos % (Auto) 7.5 % 12/08/24 04:59 Baso % (Auto) 1.1 % 12/08/24 04:59 Neut # (Auto) 3.04 10^3/uL (1.8-7.7) 12/08/24 04:59 Lymph # (Auto) 1.3 10^3/uL (0.8-4.8) 12/08/24 04:59 Meagher # (Auto) 0.5 10^3/uL (0.2-0.9) 12/08/24 04:59 Eos # (Auto) 0.4 10^3/uL (0.0-0.8) 12/08/24 04:59 Baso # (Auto) 0.1 10^3/uL (0.0-0.1) 12/08/24 04:59 Nucleated RBC % (auto) 0 % 12/08/24 04:59 Nucleated RBCs # 0.0 /100WBC 12/08/24 04:59 ESR 4 mm/hr (0-10) 12/06/24 17:00 Sodium 143 mmol/L (136-145) 12/09/24 03:11 Potassium 4.0 mmol/L (3.5-5.1) 12/09/24 03:11 Chloride 106 mmol/L (98-107) 12/09/24 03:11 Carbon Dioxide 27 mmol/L (22-29) 12/09/24 03:11 Anion Gap 14.0 (5-19) 12/09/24 03:11 BUN 8 mg/dL (6-20) 12/09/24 03:11 Creatinine 0.8 mg/dL (0.7-1.2) 12/09/24 03:11 GFR Calculation 99.6 mL/min (90-130) 12/09/24 03:11 Glucose 163 mg/dL (65-115) H 12/09/24 03:11 POC Glucose 173 mg/dL (70-110) H 12/09/24 06:31 Calculated Osmolality 298 mOsm/kg (285-295) H 12/09/24 03:11 Lactic Acid 1.4 mmol/L (0.5-2.2) 12/06/24 17:00 Calcium 9.3 mg/dL (8.5-10.5) 12/09/24 03:11 Total Bilirubin 0.5 mg/dL (0.15-1.2) 12/06/24 17:00 AST 15 U/L (0-40) 12/06/24 17:00 ALT 13 U/L (0-41) 12/06/24 17:00 Alkaline Phosphatase 96 U/L (40-130) 12/06/24 17:00 C-Reactive Protein 3.0 mg/L (0.0-4.9) 12/06/24 17:00 Total Protein 7.0 g/dL (6.6-8.7) 12/06/24 17:00 Albumin 4.2 g/dL (3.5-5.2) 12/06/24 17:00 Globulin 2.8 g/dL (1.3-4.6) 12/06/24 17:00 Vancomycin Trough 26.6 ug/mL (10-15) H* 12/07/24 18:54 Random Vancomycin 13.5 ug/mL (20.0-40.0) L 12/08/24 06:24 Vitals Last Vital Signs Temp 97.6 F 12/09/24 08:45 Pulse 81 12/09/24 08:45 Resp 16 12/09/24 08:45 BP 151/85 12/09/24 09:05 Pulse Ox 92 12/09/24 08:45 O2 Del Method Room Air 12/09/24 08:45 O2 Flow Rate 10 12/09/24 08:18 Discharge Plan Discharge Patient Disposition: Home Condition: Stable Prescriptions: New amoxicillin-pot clavulanate 875-125 mg tablet 1 tab PO BID 10 Days Qty: 20 0RF levofloxacin 750 mg tablet 750 mg PO Q24H 10 Days Qty: 10 0RF Continued fluticasone propionate 50 mcg/actuation spray,suspension 1 spray intranasal DAILY Rx Instructions: administer into each nostril (DME) Blood Glucose Test Strip See Rx Instructions .ROUTE .MEDSUPPLY Qty: 50 5RF Rx Instructions: As directed (DME) lancets [Fingerstix Lancets] Misc See Rx Instructions .ROUTE .MEDSUPPLY Qty: 100 2RF Rx Instructions: As directed (DME) Diabetic Shoes with 3 sets of inserts See Rx Instructions .Route .MEDSUPPLY Qty: 1 0RF Rx Instructions: As directed (DME) ASO See Rx Instructions .Route .MEDSUPPLY Qty: 1 0RF Rx Instructions: As directed All Day Allergy (cetirizine) 10 mg capsule 10 mg PO DAILY PRN (Reason: allergy symptoms) Qty: 90 1RF aripiprazole 5 mg tablet 5 mg PO DAILY Qty: 90 3RF benztropine 1 mg tablet 1 mg PO DAILY Qty: 90 3RF trazodone 150 mg tablet 150 mg PO .HS Qty: 90 3RF (DME) Diabetic Shoes See Rx Instructions .Route .MEDSUPPLY Qty: 1 0RF Rx Instructions: As directed by [employer] [place] 3 x insoles ([facility]) blood-glucose meter Mis See Rx Instructions .ROUTE .MEDSUPPLY Qty: 1 2RF Rx Instructions: use 4 times daily glipizide 5 mg tablet extended release 24hr 5 mg PO DAILY Qty: 90 2RF amlodipine 10 mg tablet 10 mg PO .COMPLEX Qty: 90 1RF Rx Instructions: 10 mg orally; baclofen 20 mg tablet See Rx Instructions .ROUTE .COMPLEX Qty: 270 0RF Dose Instruction: TAKE 1 TABLET BY MOUTH THREE TIMES A DAY Rx Instructions: TAKE 1 TABLET BY MOUTH THREE TIMES A DAY omeprazole 40 mg capsule,delayed release(DR/EC) See Rx Instructions .ROUTE .COMPLEX Qty: 90 1RF Dose Instruction: TAKE 1 CAPSULE BY MOUTH EVERY DAY Rx Instructions: TAKE 1 CAPSULE BY MOUTH EVERY DAY losartan 50 mg tablet 50 mg PO DAILY Qty: 90 1RF celecoxib 200 mg capsule See Rx Instructions .ROUTE .COMPLEX Qty: 90 1RF Dose Instruction: TAKE 1 CAPSULE BY MOUTH DAILY Rx Instructions: TAKE 1 CAPSULE BY MOUTH DAILY rosuvastatin 40 mg tablet See Rx Instructions .ROUTE .COMPLEX Qty: 90 1RF Dose Instruction: TAKE 1 TABLET BY MOUTH EVERY DAY Rx Instructions: TAKE 1 TABLET BY MOUTH EVERY DAY metformin 500 mg tablet See Rx Instructions .ROUTE .COMPLEX Qty: 270 1RF Dose Instruction: TAKE 2 TABLETS BY MOUTH IN THE MORNING AND TAKE 1 TABLET BY MOUTH IN THE EVENING Rx Instructions: TAKE 2 TABLETS BY MOUTH IN THE MORNING AND TAKE 1 TABLET BY MOUTH IN THE EVENING pregabalin 75 mg capsule 75 mg PO BID Qty: 60 0RF sennosides-docusate sodium 8.6-50 mg tablet 2 tab-cap PO BID PRN (Reason: Constipation) buprenorphine HCl 8 mg tablet, sublingual 0.4 mg SUBLINGUAL BID Referrals: Jimmie Ferraro DPM [Physician, Podiatry] - 12/17/24 10:45 am Referral Note: Ananth Hills MD [Primary Care Provider, [facility]] - 01/02/25 9:30 am Referral Note: Patient Instructions: Acute Wound Care (DC), Opioid Safety, Post Anesthesia Care, Patient Portal & Rosina Instructions Activity Restrictions/Additional Instructions: Keep dressings intact. Follow-up with podiatry as an outpatient in 1 week. Discharge Attestations 2 Time Spent in Discharge Care*: greater than 30 min Specific Discharge Activities: educating patient, educating and/or supporting family/caregiver, discussing with pcp/other providers, discussing with case work aide/social workers/dc planners, documenting/other paperwork and evaluating patient/reviewing data Status at Discharge: Cognitive status at discharge: cognitively intact , B ehavioral status at discharge: cooperative , Functional status at discharge: u ses cane/walker , Overall status at discharge: patient is back to baseline Quality Metrics Clinical Quality Measures [ No reported AMI, CVA or VTE this stay] Coding Level of Care Code 70927 Total time (in minutes) for Discharge: 65 Diagnoses Osteomyelitis M86.9 Diabetic infection of left foot E11.628; L08.9 Diabetic neuropathy E11.40
--- NOTE | 2024-12-09 11:28 | PC.SOCIAL ---
*IMM* Patient received copy of IMM, dated, initialled and placed in chart.
[2024-12-09] MEDS: diclofenac 1% Topical Gel 100 gm 1 APPLIC TOPICAL ×2 (11:29→16:40)
[2024-12-09] MEDS: vancomycin 1,750 MG/350 ML PIGGYBACK 175 MG IV (11:31)
[2024-12-09 11:55] LABS: ABG PCO2 45.2 mmHg (35-45); ABG PH Result 7.37 (7.35-7.45); Arterial Blood Gas Hematocrit 41.4 % (42-52); Blood Gas Allen Test Pos; Blood Gas Sample Type Arterial; Carboxyhemoglobin 0.9 %THgb (0.4-20.1); Glucose Level-ABG 140.0 mg/dL (70-115); HCO3 ABG 26.3 mmol/L (22-26); Ionized Calcium Level - ABG 1.3 mmol/L (1.1-1.4); Methemoglobin 0.3 % (0.4-1.5); Oxygen Saturation ABG 98.3; PO2 ABG 104.0 mmHg (80.0-100.0); Potassium Level - ABG 4.0 mmol/L (3.5-5.0); Sodium Level - ABG 142.0 mmol/L (131-143)
[2024-12-09 11:56] LABS: Alveolar-Arterial Oxygen Gradi 5.3 mmHg (5-10); Blood Gas LPM 2.0 %; Blood Gas Operator Identificat MONRO; Blood Gas Sample Site Brachial, right; PO2 FiO2 Ratio Arterial Blood 371
--- NOTE | 2024-12-09 14:04 | CT_ITS ---
WS: [id number] CT HEAD NONCONTRAST HISTORY: ams TECHNIQUE: Contiguous axial imaging performed through the brain. Bone and soft tissue windows. Sagittal and coronal reformats reviewed. All CT scans at [facility] use at least one of these dose optimization techniques: automated exposure control; mA and/or kV adjustment per patient size (includes targeted exams where dose is matched to clinical indication); or iterative reconstruction. DLP: 2151.78 mGy.cm COMPARISON: None available. No acute intracranial hemorrhage, midline shift or mass effect. No atrophy or prior infarcts or herniation. Ventricles: Normal size with no hydrocephalus. Paranasal sinuses: As visualized are clear. Mastoid air cells: Well pneumatized. Calvarium and scalp: Skull is intact with no soft tissue edema or swelling. CT/CT head wo con* [id number] IMPRESSION: Negative head CT.
--- NOTE | 2024-12-09 14:13 | ECG_ITS ---
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 Measurements Intervals [place] Rate: 69 P: 23 AR: 153 QRS: 25 QRSD: 90 T: 9 QT: 404 QTc: 435 Interpretive Statements SINUS RHYTHM WITH BASELINE ARTIFACT Electronically Signed On 12-12-2024 08:48:38 CDT by Joaquin Elliott M.D. [id number]
[2024-12-09 15:39] LABS: Ammonia 20 umol/L (16-60)
== END 2024-12-09 17:55 | disposition home or self-care (01) | DRG 617 ==
LOC: ER 17:10 → MEDSURG 17:49
PROVIDERS: Internal Medicine; Podiatrist Foot & Ankle Surgery; Admitting Provider Internal Medicine; Emergency Provider Physician Assistant; PCP Family Medicine; Visit Provider Student in an Organized Health Care Education/Training Program
PROC: 0Y6S0Z3 Detachment at Left 2nd Toe, Low, Open Approach (ICD-10-PCS; principal; 2024-12-09 09:50)
DX: E11.69 Type 2 diabetes mellitus with other specified complication (principal); M86.9 Osteomyelitis, unspecified; E11.621 Type 2 diabetes mellitus with foot ulcer; L97.529 Non-pressure chronic ulcer of other part of left foot with unspecified severity; E11.40 Type 2 diabetes mellitus with diabetic neuropathy, unspecified; E78.5 Hyperlipidemia, unspecified; E66.01 Morbid (severe) obesity due to excess calories; Z68.35 Body mass index [BMI] 35.0-35.9, adult; G89.29 Other chronic pain; M54.50 Low back pain, unspecified; I10 Essential (primary) hypertension; K59.00 Constipation, unspecified; Z79.84 Long term (current) use of oral hypoglycemic drugs; Z98.1 Arthrodesis status; Z82.49 Family history of ischemic heart disease and other diseases of the circulatory system
CPT/HCPCS: 36415; 36416; 36600; 70450; 73660; 73720; 80048; 80051; 80053; 80202; 82140; 82330; 82565; 82805; 82962; 83605; 85025; 85651; 86140; 87040; 88305; 88311; 93005; 96365; 96367; 96372; 99285; J0572; J1650; J1885; J2250; J2270; J2543; J2704; J3010; J3372; J3373; J3490; J9999; L3260

== ENCOUNTER → 2024-12-16 12:48 | Outpatient (BNVA) | payer MEDICARE, SELFPAY | PROVIDERS: PCP Family Medicine; Visit Provider Podiatrist Foot & Ankle Surgery | DX: E11.8 Type 2 diabetes mellitus with unspecified complications (principal); L60.3 Nail dystrophy; L84 Corns and callosities; I73.9 Peripheral vascular disease, unspecified; G62.9 Polyneuropathy, unspecified; E11.42 Type 2 diabetes mellitus with diabetic polyneuropathy; Z79.84 Long term (current) use of oral hypoglycemic drugs | CPT/HCPCS: 99213 ==

== ENCOUNTER → 2024-12-23 13:03 | Outpatient (BNVA) | payer MEDICARE, SELFPAY | PROVIDERS: PCP Family Medicine; Visit Provider Podiatrist Foot & Ankle Surgery | DX: E11.8 Type 2 diabetes mellitus with unspecified complications (principal); L60.3 Nail dystrophy; L84 Corns and callosities; E11.42 Type 2 diabetes mellitus with diabetic polyneuropathy; I73.9 Peripheral vascular disease, unspecified; G62.9 Polyneuropathy, unspecified; S93.322A Subluxation of tarsometatarsal joint of left foot, initial encounter; X58.XXXA Exposure to other specified factors, initial encounter; Z79.84 Long term (current) use of oral hypoglycemic drugs | CPT/HCPCS: 99213 ==

== ENCOUNTER → 2025-01-21 10:01 | Outpatient (BNVA) | payer MEDICARE, SELFPAY | PROVIDERS: PCP Family Medicine; Visit Provider Podiatrist Foot & Ankle Surgery | DX: E11.8 Type 2 diabetes mellitus with unspecified complications (principal); L60.3 Nail dystrophy; L84 Corns and callosities; I73.9 Peripheral vascular disease, unspecified; G62.9 Polyneuropathy, unspecified; E11.42 Type 2 diabetes mellitus with diabetic polyneuropathy; S93.324A Dislocation of tarsometatarsal joint of right foot, initial encounter; X58.XXXA Exposure to other specified factors, initial encounter; Z79.84 Long term (current) use of oral hypoglycemic drugs | CPT/HCPCS: 11721; 99213 ==